=== PATIENT | female | born 1945 | race Caucasian/White ===

== ENCOUNTER 2023-03-11 16:26 | Inpatient (IN) | payer OTHER, SELFPAY ==
[2023-03-11] VITALS (28 sets, daily range): BP systolic 110–155; BP diastolic 42–98; PULSE 57–70; RESP 13–20; TEMP 36.6–36.8; O2SAT 88–100; BMI 52.2
--- NOTE | ~2023-03-11 | CT_ITS ---
EXAMINATION: CT brain wo con DATE: 03/11/2023 17:06 INDICATION: Episode of unresponsiveness TECHNIQUE: Computed tomography (CT) of the head was performed without intravenous contrast. Sagittal and coronal reconstructions were performed. The mA was adjusted according to patient size. Iterative reconstruction technique was employed. The dose-length product was 605.33 mGy-cm. COMPARISON: None FINDINGS: No acute intracranial hemorrhage, acute infarction or abnormal extra axial fluid collection. There is moderate scattered white matter hypoattenuation consistent with chronic small vessel ischemic diseas e. Symmetric prominence of the sulci consistent with mild to moderate age-appropriate diffuse cerebra l volume loss. Ventricles are normal and symmetric. No mass/mass effect. Intracranial calcified cereb ral atherosclerosis is noted. The orbits, paranasal sinuses and mastoid air cells are normal. IMPRESSION: 1. No acute intracranial process. 2. Age-related changes including mild to moderate diffuse volume loss and moderate scattered white ma tter hypoattenuation consistent with chronic small vessel ischemic disease. Reviewed, dictated and finalized at location A. IMPRESSION: 1. No acute intracranial process. 2. Age-related changes including mild to moderate diffuse volume loss and moder ate scattered white matter hypoattenuation consistent with chronic small vessel ischemic disease.
--- NOTE | ~2023-03-11 | XR_ITS ---
XR chest 1V DATE: 03/11/2023 17:08 INDICATION: Hypoxia TECHNIQUE: AP chest COMPARISON: None FINDINGS: Cardiomegaly. Is aortic calcification. There is mild pulmonary vascular congestion and redistribution. There is mild patchy infiltrate and/atelectasis in the left lower lobe and to a lesser extent right l [place] base. The left costophrenic angle is not sharp. Small left pleural effusion is not excluded. No pneumothora x. Diffuse osteopenia. Degenerative changes of the cervical, thoracic and lumbar spine. IMPRESSION: Cardiomegaly Aortic atherosclerosis Mild congestive change Patchy left lower lobe infiltrate or atelectasis, minimal infiltrate or atelectasis at right lung bas e Reviewed, dictated and finalized at location A. IMPRESSION: Cardiomegaly Aortic atherosclerosis Mild congestive change Patchy left lower lobe infiltrate or atelectasis, minimal infiltrate or atelect asis at right lung base
--- NOTE | 2023-03-11 16:34 | ECG_ITS ---
Measurements Intervals [place] Rate: 68 P: 53 GA: 175 QRS: 26 QRSD: 105 T: 5 QT: 415 QTc: 442 Interpretive Statements SINUS RHYTHM BORDERLINE ST-T WAVE ABNORMALITY- ANT/INF LEADS BORDERLINE ECG NO PREVIOUS ECG AVAILABLE FOR COMPARISON Electronically Signed On 03-11-2023 20:23:08 CDT by Clayton Madrid D.O.
--- NOTE | 2023-03-11 16:35 | ED.AMS ---
HPI - Altered Mental Status General Chief Complaint: Altered Mental Status Stated Complaint: unresponsive Time Seen by Provider: 03/11/23 16:34 History of Present Illness HPI narrative: patient is a 78-year-old female with history of diabetes, here with altered mental status. Per EMS patient was in a vehicle with her family and she went unresponsive. Patient now awake, alert, denying any complaints. She does not remember the event. She denies any chest pain, shortness of breath, lightheadedness. She does endorse some generalized weakness. Patient was hypoxic on EMS arrival and currently on 2L NC, she only uses oxygen at night when she sleeps however family notes she is supposed to be using it 10/01. Family states that she was doing well earlier today and then she was walking into a restaurant with her family and needed to stop and rest. She did eventually make it into the restaurant and eat. She continued to tell family that she did not feel well however she did not specify any specific complaints. They note that she then got into the vehicle and seemed to pass out leaning her head against the window and did not answer questions. They noted that she seemed to be breathing slowly and EMS was called. Related Data Home Medications Medication Instructions Recorded Confirmed atorvastatin 80 mg tablet 80 mg PO HS 03/11/23 03/11/23 diclofenac sodium 75 mg 75 mg PO BID 03/11/23 03/11/23 tablet,delayed release escitalopram oxalate 20 mg tablet 20 mg PO DAILY 03/11/23 03/11/23 folic acid 1 mg tablet 4 mg PO DAILY 03/11/23 03/11/23 gabapentin 300 mg capsule 300 mg PO BID 03/11/23 03/11/23 insulin human U-100 NPH-regulr 50 unit subcut BID 03/11/23 03/11/23 70-30 mix 100 unit/mL subcutaneous susp (Novolin 70/30 U-100 Insulin) lisinopril 2.5 mg tablet 2.5 mg PO DAILY 03/11/23 03/11/23 methotrexate sodium 2.5 mg tablet 15 mg PO WEEKLY 03/11/23 03/11/23 metoprolol tartrate 25 mg tablet 25 mg PO BID 03/11/23 03/11/23 nystatin 100,000 unit/gram topical 1 applic topical DAILY 03/11/23 03/11/23 powder pantoprazole 40 mg tablet,delayed 40 mg PO DAILY 03/11/23 03/11/23 release spironolactone 25 mg tablet 25 mg PO DAILY 03/11/23 03/11/23 Allergies Allergy/AdvReac Type Severity Reaction Status Date / Time Sulfa (Sulfonamide Allergy Unknown Verified 03/11/23 16:40 Antibiotics) Review of Systems Review of Systems: CONSTITUTIONAL: Denies fever, chills, or sweats. EYES: Denies visual changes, redness, or discharge. ENT: Denies rhinorrhea, congestion, sore throat, or otalgia. CARDIOVASCULAR: Denies chest pain, palpitations, or edema. RESPIRATORY: Shortness of breath, Denies cough GASTROINTESTINAL: Denies abdominal pain, nausea, vomiting GENITOURINARY: Denies dysuria or hematuria. SKIN: Rash underneath breasts MUSCULOSKELETAL: Denies back pain, joint pain, or myalgia. NEUROLOGIC: Denies headache, numbness, or weakness. Episode of unresponsiveness. PSYCHIATRIC: Denies anxiety or depression. [facility] Family History Family History (Updated 03/11/23 @ 21:38 by Shreya Waddell RN) Father Congestive heart failure Sibling Diabetes mellitus Social History Social History Smoking status: Never smoker Alcohol intake: never Substance use: never Lack of Transportation: No Lack of Food: Never True Current Housing: I Have Housing Concerned About Future Housing: No Difficulty Paying Gas/Electric Bills: No Difficulty Paying for Meds: No Currently Unemployed: No Education: High School Diploma/GED Difficulty w/ Childcare or Family Care: No Spiritual care concerns: No Exam Narrative: GENERAL: Well-appearing, well-nourished, and in no acute distress. HEAD: Normocephalic, atraumatic. EYES: PERRLA and EOMI. ENT: Nares clear. Mucous membranes moist. On 2L NC NECK: Supple. CHEST: Clear to auscultation. No respiratory distress. HEART: Regular rate and rhythm. Normal peripheral pulses. ABDOMEN:
[2023-03-11 16:47] LABS: Hematocrit 37.9 % (37.0-47.0); Hemoglobin 11.3 g/dL (12.0-15.0); Mean Corpuscular HGB Conc 29.8 g/dl (32-36); Mean Corpuscular Hemoglobin 25.5 pg (26-34); Mean Corpuscular Volume 85.4 fl (80-100); Mean Platelet Volume 9.4 fl (7.4-10.4); Platelet Count Result 296 k/mm3 (150-375); Red Blood Count 4.44 M/mm3 (4.2-5.4); Red Cell Distribution Width 17.2 % (11.5-14.5); White Blood Count 21.2 K/mm3 (4.5-10.0)
[2023-03-11 16:50] LABS: Glucose Point of Care 163 mg/dl (65-105)
[2023-03-11 17:06] LABS: Albumin Level 3.7 g/dL (3.5-5.1); Alkaline Phosphatase 110 U/L (38-126); Anion Gap 14 mmol/L (8-16); Aspartate Amino Transferase 72 U/L (14-36); Bilirubin,Total 0.8 mg/dL (0.2-1.3); Blood Urea Nitrogen 29 mg/dL (7-17); Calcium 8.6 mg/dL (8.4-10.2); Carbon Dioxide 17 mmol/L (22-30); Chloride 109 mmol/L (98-107); Estimated CRCL calculation 55 ml/min; Estimated Glomerular Filt Rate 54; Glucose 152 mg/dL (65-110); Potassium 5.1 mmol/L (3.4-5.0); Sodium 140 mmol/L (137-145)
[2023-03-11 17:08] LABS: Lactic Acid Reflex 5.6 mmol/L (0.7-2.0)
[2023-03-11 17:12] LABS: Troponin I < 0.012 ng/mL (0.000-0.034)
[2023-03-11 17:13] LABS: Eosinophils Absolute Manual 0.42 K/mm3 (0.02-0.5); Eosinophils Percent Manual 2 % (0-4); Lymphocytes Absolute Manual 4.66 K/mm3 (1.1-4.5); Monocytes Absolute Manual 0.63 K/mm3 (0.1-0.90); Monocytes Percent Manual 3 % (3-9); Neutrophils Percent Manual 73 % (46-73); Total Cells Counted 100
[2023-03-11 17:14] LABS: Platelet Estimate Adequate (Adequate); Schistocytes None Seen (NORMAL)
[2023-03-11 17:15] LABS: Anisocytosis 2+ (NORMAL); Hypochromasia 1+ (NORMAL)
[2023-03-11 17:22] LABS: Alanine Aminotransferase 48 U/L (6-35)
[2023-03-11 17:28] LABS: SARS-CoV-2 RNA PCR Negative (Negative)
[2023-03-11 17:35] LABS: INR 1.1; Partial Thromboplastin Time 22.3 SECONDS (22.3-36.8); Prothrombin Time 14.8 Seconds (11.1-14.7)
[2023-03-11] MEDS: LACTATED RINGERS 1,000 ML 999 ML IV CONT ×2 (17:45→20:36)
[2023-03-11] MEDS: CEFEPIME 2 GM/NS 50 ML 2 GM/50 ML BAG IVPB (17:58)
[2023-03-11 18:07] LABS: CRP 2.3 mg/dL (<1.0)
[2023-03-11] MEDS: VANCOMYCIN 1,250 MG/NS 250 ML 1,250 MG/250 ML BAG 166.67 MG IVPB ×2 (18:19→19:45)
[2023-03-11 18:57] LABS: Appearance Urine Cloudy (Clear); Bacteria Urine None Seen /hpf; Bilirubin Urine 1+ (Negative); Blood Urine Negative (Negative); Budding Yeast Urine Present /hpf; Color Urine Dark Yellow (Yellow); Glucose Urine UA Trace mg/dL (Negative); Hyaline Casts Urine Present /lpf; Ketones Urine Trace mg/dL (Negative); Leukocyte Esterase Ur 2+ LEU/UL (Negative); Need Manual Microscopic Reviewed; Nitrate Urine Negative (Negative); Non Pathogenic Casts >20; Protein Urine 3+ mg/dL (Negative); Specific Grav Ur 1.024 (1.001-1.035); Squamous Epithelial Cell Urine Few /hpf (Few); WBC Urine 51-100 /hpf; Waxy Casts Urine Present /lpf; White Blood Cell Casts Urine Present /lpf
[2023-03-11 18:58] LABS: Add Urine Microscopic? YES
[2023-03-11 19:51] LABS: Reflex Lactic Acid Yes or No Add Lactic
[2023-03-11 21:00] LABS: Lactic Acid 1.1 mmol/L (0.7-2.0)
[2023-03-11 21:10] LABS: Troponin I 0.028 ng/mL (0.000-0.034)
--- NOTE | 2023-03-11 21:20 | ADMGEN ---
This patient, Jaida Hadley, was admitted to 2 Medical Room 254-01. Patient/family oriented to hospital policies and general routines including ID bracelet, bed and alarms, visiting hours, pain management, procedures, bathroom and other care routines, personal items, smoking policy, room service/diet, and visiting hours. Information on how to activate the Rapid Response Team has been discussed. Patient/Family are encouraged to report perceived risks to care and to ask questions if they do not understand what they are told or what they should do.
[2023-03-11] MEDS: TOLNAFTATE 1% POWDER 45 GM BTL 1 APPLIC TOPICAL (22:16)
--- NOTE | 2023-03-11 23:26 | PM.IMHP ---
H&P: HPI History of Present Illness Date/Time: 03/11/23 23:26 Chief Complaint: Patient brought to the ER for evaluation by EMS after she passed out after dinner today Narrative: She is a very pleasant 78 years old morbidly obese female who lives with her family at home. According to her , she is feeling weak and tired and sleeping most of the day since yesterday. They went for dinner and on the way home, she passed out at the passenger seat. Family got concerned, called EMS and brought the patient to ER for evaluation. Workup was done which showed raging UTI with sepsis. Patient was given aggressive IV hydration and IV antibiotics. Upon my evaluation in the ER, she is getting back to her normal self and answered my questions appropriately. She is being admitted to the medical floor for IV antibiotics and medical management. Review of Systems Review of Systems: she denies any chest pain, palpitations, fever rigor chills, nausea vomiting or abdominal pain All systems reviewed & are unremarkable except as noted in HPI and below PMFSH Past Medical History Medical History (Updated 03/12/23 @ 01:45 by Donny Hitchcock MD) Morbid obesity due to excess calories Family History Family History Father Congestive heart failure Sibling Diabetes mellitus Social History Social History Smoking status: Never smoker Alcohol intake: never Substance use: never Lack of Transportation: No Lack of Food: Never True Current Housing: I Have Housing Concerned About Future Housing: No Difficulty Paying Gas/Electric Bills: No Difficulty Paying for Meds: No Currently Unemployed: No Education: High School Diploma/GED Difficulty w/ Childcare or Family Care: No Spiritual care concerns: No Meds Home Medications and Allergies Home Medications Medication Instructions Recorded Confirmed Type atorvastatin 80 mg tablet 80 mg PO HS 03/11/23 03/11/23 History diclofenac sodium 75 mg 75 mg PO BID 03/11/23 03/11/23 History tablet,delayed release escitalopram oxalate 20 mg tablet 20 mg PO DAILY 03/11/23 03/11/23 History folic acid 1 mg tablet 4 mg PO DAILY 03/11/23 03/11/23 History gabapentin 300 mg capsule 300 mg PO BID 03/11/23 03/11/23 History insulin human U-100 NPH-regulr 50 unit subcut BID 03/11/23 03/11/23 History 70-30 mix 100 unit/mL subcutaneous susp (Novolin 70/30 U-100 Insulin) lisinopril 2.5 mg tablet 2.5 mg PO DAILY 03/11/23 03/11/23 History methotrexate sodium 2.5 mg tablet 15 mg PO WEEKLY 03/11/23 03/11/23 History metoprolol tartrate 25 mg tablet 25 mg PO BID 03/11/23 03/11/23 History nystatin 100,000 unit/gram topical 1 applic topical DAILY 03/11/23 03/11/23 History powder pantoprazole 40 mg tablet,delayed 40 mg PO DAILY 03/11/23 03/11/23 History release spironolactone 25 mg tablet 25 mg PO DAILY 03/11/23 03/11/23 History Allergies Allergy/AdvReac Type Severity Reaction Status Date / Time Sulfa (Sulfonamide Allergy Unknown Verified 03/11/23 16:40 Antibiotics) Vital Signs Vital Signs - 24 hr 03/11/23 16:31 03/11/23 16:35 03/11/23 18:50 Temperature 36.8 C Pulse Rate 70 Respiratory Rate 20 Blood Pressure 155/58 H Pulse Oximetry 94 88 L 95 Oxygen Delivery Nasal Cannula Room Air Nasal Cannula Oxygen Flow Rate 2 2 03/11/23 17:11 03/11/23 17:15 03/11/23 17:19 Temperature Pulse Rate 65 65 65 Respiratory Rate 19 17 18 Blood Pressure 122/50 L Pulse Oximetry 94 97 97 Oxygen Delivery Oxygen Flow Rate 03/11/23 17:31 03/11/23 17:53 03/11/23 18:00 Temperature Pulse Rate 62 61 62 Respiratory Rate 18 15 19 Blood Pressure 110/42 L Pulse Oximetry 95 95 97 Oxygen Delivery Oxygen Flow Rate 03/11/23 18:01 03/11/23 18:15 03/11/23 18:16 Temperature Pulse Rate 59 L 61 60 Respiratory Rate 19 18 16 Blood Pressure 110/50 L
[2023-03-12] VITALS (12 sets, daily range): BP systolic 120–138; BP diastolic 42–66; PULSE 60–68; RESP 14–20; TEMP 36.6–36.9; O2SAT 96–100
[2023-03-12] MEDS: SODIUM CHLORIDE 0.45% 1,000 ML 100 ML IV CONT (02:37)
[2023-03-12 04:45] LABS: Basophils Absolute Auto 0.1 K/mm3 (0.0-0.1); Basophils Percent Auto 0.4 % (0.2-1.2); Eosinophils Absolute Auto 0.2 K/mm3 (0-0.3); Eosinophils Percent Auto 1.2 % (0-4.4); Hematocrit 35.9 % (37.0-47.0); Hemoglobin 10.6 g/dL (12.0-15.0); Immature Granulocyte Absolute 0.11 K/mm3 (0.00-0.031); Immature Granulocyte Percent A 0.8 % (0-0.5); Lymphocytes Absolute Auto 2.19 K/mm3 (0.9-3.2); Lymphocytes Percent Auto 15.1 % (18.3-44.2); Mean Corpuscular HGB Conc 29.5 g/dl (32-36); Mean Corpuscular Hemoglobin 25.4 pg (26-34); Mean Corpuscular Volume 85.9 fl (80-100); Mean Platelet Volume 9.4 fl (7.4-10.4); Monocytes Absolute Auto 0.9 K/mm3 (0.1-0.6); Monocytes Percent Auto 6.2 % (2.6-8.5); Neutrophils Absolute Auto 11.1 K/mm3 (1.3-6.7); Neutrophils Percent Auto 76.3 % (45.5-73.1); Platelet Count Result 262 k/mm3 (150-375); Red Blood Count 4.18 M/mm3 (4.2-5.4); Red Cell Distribution Width 17.2 % (11.5-14.5); White Blood Count 14.5 K/mm3 (4.5-10.0)
[2023-03-12 05:01] LABS: Anion Gap 5 mmol/L (8-16); Blood Urea Nitrogen 28 mg/dL (7-17); Calcium 8.4 mg/dL (8.4-10.2); Carbon Dioxide 26 mmol/L (22-30); Chloride 108 mmol/L (98-107); Estimated CRCL calculation 72 ml/min; Estimated Glomerular Filt Rate > 60; Glucose 130 mg/dL (65-110); Magnesium 1.8 mg/dL (1.6-2.3); Phosphorus 3.4 mg/dL (2.5-4.5); Potassium 4.6 mmol/L (3.4-5.0); Sodium 139 mmol/L (137-145)
[2023-03-12 08:37] LABS: Glucose Point of Care 124 mg/dl (65-105)
[2023-03-12] MEDS: ENOXAPARIN 30 MG/0.3 ML SYRINGE SUB-Q ×2 (09:22→21:46)
[2023-03-12] MEDS: DICLOFENAC SOD 75 MG TABLET.EC PO ×2 (09:22→18:13)
[2023-03-12] MEDS: FOLIC ACID 1 MG TABLET 4 MG PO (09:23)
[2023-03-12] MEDS: ESCITALOPRAM OXALATE 10 MG TABLET 20 MG PO (09:23)
[2023-03-12] MEDS: PANTOPRAZOLE 40 MG TABLET PO (09:24)
[2023-03-12] MEDS: GABAPENTIN 300 MG CAPSULE PO ×2 (09:24→18:14)
[2023-03-12] MEDS: TOLNAFTATE 1% POWDER 45 GM BTL 1 APPLIC TOPICAL ×2 (09:25→21:46)
[2023-03-12] MEDS: INSULIN HUMAN ISOPHAN/REGULAR 70/30 (*BKC) 100 UNITS/ML 50 UNITS SUB-Q ×2 (09:25→18:14)
[2023-03-12] MEDS: lisinopriL 2.5 MG TABLET PO (11:00)
[2023-03-12] MEDS: METOPROLOL TARTRATE 25 MG TABLET PO ×2 (11:00→21:45)
[2023-03-12 12:24] LABS: Glucose Point of Care 151 mg/dl (65-105)
--- NOTE | 2023-03-12 12:54 | PM.IMPN ---
Progress Note: A&P Assessment and Plan (1) Acute UTI: Code(s): N39.0 - Urinary tract infection, site not specified Status: Acute (2) Altered mental status: Qualifiers: Altered mental status type: delirium Qualified Code(s): R41.0 - Disorientation, unspecified Code(s): R41.82 - Altered mental status, unspecified Status: Acute (3) Candidal skin infection: Code(s): B37.2 - Candidiasis of skin and nail Status: Acute (4) Candidal intertrigo: Code(s): B37.2 - Candidiasis of skin and nail Status: Acute (5) Morbid obesity due to excess calories: Code(s): E66.01 - Morbid (severe) obesity due to excess calories Status: Acute (6) Sepsis secondary to UTI: Code(s): A41.9 - Sepsis, unspecified organism; N39.0 - Urinary tract infection, site not specified Status: Acute Plan 78-year-old female presented with altered mental status. Patient was in of the cul with her family and went unresponsive. EMS was called. Was noted to be hypoxic on EMS arrival and was placed on oxygen nasal cannula 2 L. she normally uses oxygen only at night. The oz she is supposed to be using it 247. She was otherwise doing well earlier today until this happened. Upon arrival to the ER she is alert and oriented and more awake. Initial ED evaluation showed WBC count of 21,000 lactic acid of 5.6 troponin was normal COVID negative CT head was negative. Chest x-ray showed left lower lobe infiltrate versus atelectasis. UA consistent with UTI. Diagnosis sepsis received IV fluid resuscitation likely source UTI started on vancomycin and cefepime. Was admitted for further evaluation. Seen doses mild cough which is chronic. Her lactic acid is resolved since then. She has underlying history of morbid obesity/diabetes mellitus on insulin peripheral neuropathy/anxiety depression/hypertension/hyperlipidemia/psoriasis also on methotrexate. Will also check ABG. Will stop IV fluids. Continue oxygen supplementation as ordered Subjective Date/time seen: 03/12/23 12:54 Interval history: 78-year-old female presented with altered mental status. Patient was in of the cul with her family and went unresponsive. EMS was called. Was noted to be hypoxic on EMS arrival and was placed on oxygen nasal cannula 2 L. she normally uses oxygen only at night. The oz she is supposed to be using it 247. She was otherwise doing well earlier today until this happened. Upon arrival to the ER she is alert and oriented and more awake. Initial ED evaluation showed WBC count of 21,000 lactic acid of 5.6 troponin was normal COVID negative CT head was negative. Chest x-ray showed left lower lobe infiltrate versus atelectasis. UA consistent with UTI. Diagnosis sepsis received IV fluid resuscitation likely source UTI started on vancomycin and cefepime. Was admitted for further evaluation. Seen doses mild cough which is chronic. Her lactic acid is resolved since then. She has underlying history of morbid obesity/diabetes mellitus on insulin peripheral neuropathy/anxiety depression/hypertension/hyperlipidemia also on methotrexate. Will also check ABG Review of Systems Review of Systems: All systems reviewed & are unremarkable except as noted in HPI and below Exam Narrative: General physical exam: morbidly obese female lying in bed during my ER exam, feels tired and fatigued, family at bedside Head/eyes: Atraumatic, EOMI, PERRLA ENT: +dry mucous membranes, nasal passages clear Neck: Supple, full range of motion, trachea midline CVS: S1 + S2, regular rate and rhythm, no murmurs Respiratory: Bilaterally fair air entry in both lung allen, mild B/L crackles, symmetric chest expansion, no distress Abdomen: Soft, non-tender, bowel sounds +ve, no organomegaly Extremities: No clubbing, no cyanosis, no edema, no calf tenderness Musculoskeletal: Moves all, decreased range of motion, no muscle spasms Skin: Warm, dry, no jaund
[2023-03-12] MEDS: CEFEPIME 2 GM/NS 50 ML 2 GM/50 ML BAG IVPB ×2 (14:24→23:00)
[2023-03-12 17:06] LABS: Glucose Point of Care 128 mg/dl (65-105)
[2023-03-12 17:22] LABS: Glucose Point of Care 149 mg/dl (65-105)
[2023-03-12] MEDS: ATORVASTATIN 40 MG TABLET 80 MG PO (21:45)
[2023-03-12 21:47] LABS: Glucose Point of Care 179 mg/dl (65-105)
[2023-03-12] MEDS: ACETAMINOPHEN 325 MG TABLET 650 MG PO (21:59)
[2023-03-13] VITALS (15 sets, daily range): BP systolic 96–124; BP diastolic 50–79; PULSE 51–94; RESP 16–20; TEMP 36.2–36.6; O2SAT 93–100
[2023-03-13 05:55] LABS: Basophils Absolute Auto 0.1 K/mm3 (0.0-0.1); Basophils Percent Auto 0.5 % (0.2-1.2); Eosinophils Absolute Auto 0.4 K/mm3 (0-0.3); Hematocrit 35.1 % (37.0-47.0); Hemoglobin 10.2 g/dL (12.0-15.0); Immature Granulocyte Percent A 0.7 % (0-0.5); Lymphocytes Absolute Auto 2.61 K/mm3 (0.9-3.2); Lymphocytes Percent Auto 19.3 % (18.3-44.2); Mean Corpuscular HGB Conc 29.1 g/dl (32-36); Mean Corpuscular Hemoglobin 25.4 pg (26-34); Mean Corpuscular Volume 87.3 fl (80-100); Mean Platelet Volume 9.8 fl (7.4-10.4); Monocytes Absolute Auto 0.9 K/mm3 (0.1-0.6); Monocytes Percent Auto 6.9 % (2.6-8.5); Neutrophils Absolute Auto 9.4 K/mm3 (1.3-6.7); Neutrophils Percent Auto 69.6 % (45.5-73.1); Platelet Count Result 257 k/mm3 (150-375); Red Blood Count 4.02 M/mm3 (4.2-5.4); Red Cell Distribution Width 17.1 % (11.5-14.5); White Blood Count 13.5 K/mm3 (4.5-10.0)
[2023-03-13] MEDS: CEFEPIME 2 GM/NS 50 ML 2 GM/50 ML BAG IVPB ×3 (06:00→22:02)
[2023-03-13 06:05] LABS: Anion Gap 8 mmol/L (8-16); Blood Urea Nitrogen 33 mg/dL (7-17); Calcium 8.2 mg/dL (8.4-10.2); Carbon Dioxide 22 mmol/L (22-30); Chloride 108 mmol/L (98-107); Estimated CRCL calculation 54 ml/min; Estimated Glomerular Filt Rate 48; Glucose 87 mg/dL (65-110); Magnesium 1.9 mg/dL (1.6-2.3); Potassium 4.4 mmol/L (3.4-5.0); Sodium 138 mmol/L (137-145)
[2023-03-13 06:27] LABS: Anisocytosis 1+ (NORMAL); Hypochromasia 1+ (NORMAL); Platelet Estimate Adequate (Adequate); Schistocytes None Seen (NORMAL)
[2023-03-13 07:59] LABS: Glucose Point of Care 65 mg/dl (65-105)
[2023-03-13] MEDS: lisinopriL 2.5 MG TABLET PO (08:43)
[2023-03-13] MEDS: GABAPENTIN 300 MG CAPSULE PO ×2 (08:43→17:20)
[2023-03-13 08:44] LABS: Glucose Point of Care 104 mg/dl (65-105)
[2023-03-13] MEDS: TOLNAFTATE 1% POWDER 45 GM BTL 1 APPLIC TOPICAL ×2 (08:44→20:33)
[2023-03-13] MEDS: PANTOPRAZOLE 40 MG TABLET PO (08:44)
[2023-03-13] MEDS: ESCITALOPRAM OXALATE 10 MG TABLET 20 MG PO (08:44)
[2023-03-13] MEDS: DICLOFENAC SOD 75 MG TABLET.EC PO ×2 (08:44→17:20)
[2023-03-13] MEDS: METOPROLOL TARTRATE 25 MG TABLET PO ×2 (08:44→20:34)
[2023-03-13] MEDS: ENOXAPARIN 30 MG/0.3 ML SYRINGE SUB-Q ×2 (08:45→20:37)
[2023-03-13 11:43] LABS: Glucose Point of Care 91 mg/dl (65-105)
--- NOTE | 2023-03-13 11:51 | PM.IMPN ---
Progress Note: A&P Assessment and Plan (1) Acute UTI: Code(s): N39.0 - Urinary tract infection, site not specified Status: Acute (2) Altered mental status: Qualifiers: Altered mental status type: delirium Qualified Code(s): R41.0 - Disorientation, unspecified Code(s): R41.82 - Altered mental status, unspecified Status: Acute (3) Candidal skin infection: Code(s): B37.2 - Candidiasis of skin and nail Status: Acute (4) Candidal intertrigo: Code(s): B37.2 - Candidiasis of skin and nail Status: Acute (5) Morbid obesity due to excess calories: Code(s): E66.01 - Morbid (severe) obesity due to excess calories Status: Acute (6) Sepsis secondary to UTI: Code(s): A41.9 - Sepsis, unspecified organism; N39.0 - Urinary tract infection, site not specified Status: Acute Plan 78-year-old female presented with altered mental status. Patient was in of the cul with her family and went unresponsive. EMS was called. Was noted to be hypoxic on EMS arrival and was placed on oxygen nasal cannula 2 L. she normally uses oxygen only at night. The oz she is supposed to be using it 10/01. She was otherwise doing well earlier today until this happened. Upon arrival to the ER she is alert and oriented and more awake. Initial ED evaluation showed WBC count of 21,000 lactic acid of 5.6 troponin was normal COVID negative CT head was negative. Chest x-ray showed left lower lobe infiltrate versus atelectasis. UA consistent with UTI. Diagnosis sepsis received IV fluid resuscitation likely source UTI started on vancomycin and cefepime. Was admitted for further evaluation. She has mild cough which is chronic. Her lactic acid is resolved since then. She has underlying history of morbid obesity/diabetes mellitus on insulin peripheral neuropathy/anxiety depression/hypertension/hyperlipidemia/psoriasis also on methotrexate. ABG ordered but could not be obtained. Stopped IV fluid 03/12. Leukocytosis continues to improve. MRSA is negative on nares. Will stop vancomycin IV. Blood culture x2 is negative to date. Urine culture is no growth to date. Continue cefepime as ordered. Continue oxygen supplementation as ordered Subjective Date/time seen: 03/13/23 11:51 Interval history: 78-year-old female presented with altered mental status. Patient was in of the cul with her family and went unresponsive. EMS was called. Was noted to be hypoxic on EMS arrival and was placed on oxygen nasal cannula 2 L. she normally uses oxygen only at night. The oz she is supposed to be using it 247. She was otherwise doing well earlier today until this happened. Upon arrival to the ER she is alert and oriented and more awake. Initial ED evaluation showed WBC count of 21,000 lactic acid of 5.6 troponin was normal COVID negative CT head was negative. Chest x-ray showed left lower lobe infiltrate versus atelectasis. UA consistent with UTI. Diagnosis sepsis received IV fluid resuscitation likely source UTI started on vancomycin and cefepime. Was admitted for further evaluation. Seen doses mild cough which is chronic. Her lactic acid is resolved since then. She has underlying history of morbid obesity/diabetes mellitus on insulin peripheral neuropathy/anxiety depression/hypertension/hyperlipidemia also on methotrexate. Will also check ABG 03/13/2023: No overnight events. ABG could not be performed. Labs were reviewed. Denies any new complaints. Review of Systems Review of Systems: All systems reviewed & are unremarkable except as noted in HPI and below Exam Narrative: General physical exam: morbidly obese female, feels tired and fatigued Head/eyes: Atraumatic, EOMI, PERRLA ENT: +dry mucous membranes, nasal passages clear Neck: Supple, full range of motion, trachea midline CVS: S1 + S2, regular rate and rhythm, no murmurs Respiratory: Bilaterally fair air entry in both lung allen, mild B/
[2023-03-13 16:48] LABS: Glucose Point of Care 124 mg/dl (65-105)
[2023-03-13] MEDS: INSULIN HUMAN ISOPHAN/REGULAR 70/30 (*BKC) 100 UNITS/ML 35 UNITS SUB-Q (17:20)
[2023-03-13] MEDS: ATORVASTATIN 40 MG TABLET 80 MG PO (20:34)
[2023-03-13 21:39] LABS: Glucose Point of Care 150 mg/dl (65-105)
[2023-03-14] VITALS (13 sets, daily range): BP systolic 106–125; BP diastolic 43–53; PULSE 51–110; RESP 16–20; TEMP 36.3–36.6; O2SAT 96–99
[2023-03-14] MEDS: ACETAMINOPHEN 325 MG TABLET 650 MG PO ×2 (00:52→08:38)
[2023-03-14] MEDS: CEFEPIME 2 GM/NS 50 ML 2 GM/50 ML BAG IVPB ×3 (05:12→21:09)
[2023-03-14 05:46] LABS: Basophils Absolute Auto 0.1 K/mm3 (0.0-0.1); Basophils Percent Auto 0.7 % (0.2-1.2); Eosinophils Absolute Auto 0.5 K/mm3 (0-0.3); Eosinophils Percent Auto 3.6 % (0-4.4); Hematocrit 34.1 % (37.0-47.0); Hemoglobin 9.8 g/dL (12.0-15.0); Immature Granulocyte Absolute 0.09 K/mm3 (0.00-0.031); Immature Granulocyte Percent A 0.7 % (0-0.5); Lymphocytes Absolute Auto 2.51 K/mm3 (0.9-3.2); Lymphocytes Percent Auto 19.1 % (18.3-44.2); Mean Corpuscular HGB Conc 28.7 g/dl (32-36); Mean Corpuscular Hemoglobin 25.1 pg (26-34); Mean Corpuscular Volume 87.4 fl (80-100); Mean Platelet Volume 9.6 fl (7.4-10.4); Monocytes Percent Auto 7.4 % (2.6-8.5); Neutrophils Percent Auto 68.5 % (45.5-73.1); Platelet Count Result 250 k/mm3 (150-375); Red Cell Distribution Width 16.9 % (11.5-14.5); White Blood Count 13.1 K/mm3 (4.5-10.0)
[2023-03-14 05:56] LABS: Anion Gap 7 mmol/L (8-16); Blood Urea Nitrogen 40 mg/dL (7-17); Calcium 8.2 mg/dL (8.4-10.2); Carbon Dioxide 22 mmol/L (22-30); Chloride 107 mmol/L (98-107); Estimated CRCL calculation 49 ml/min; Estimated Glomerular Filt Rate 44; Glucose 86 mg/dL (65-110); Magnesium 2.3 mg/dL (1.6-2.3); Potassium 4.4 mmol/L (3.4-5.0); Sodium 136 mmol/L (137-145)
[2023-03-14 08:20] LABS: Glucose Point of Care 80 mg/dl (65-105)
[2023-03-14] MEDS: ESCITALOPRAM OXALATE 10 MG TABLET 20 MG PO (08:38)
[2023-03-14] MEDS: GABAPENTIN 300 MG CAPSULE PO ×2 (08:40→17:35)
[2023-03-14] MEDS: lisinopriL 2.5 MG TABLET PO (08:40)
[2023-03-14] MEDS: PANTOPRAZOLE 40 MG TABLET PO (08:40)
[2023-03-14] MEDS: ENOXAPARIN 30 MG/0.3 ML SYRINGE SUB-Q ×2 (08:40→20:07)
[2023-03-14] MEDS: DICLOFENAC SOD 75 MG TABLET.EC PO ×2 (08:40→17:35)
[2023-03-14] MEDS: FOLIC ACID 1 MG TABLET 4 MG PO (08:43)
[2023-03-14] MEDS: TOLNAFTATE 1% POWDER 45 GM BTL 1 APPLIC TOPICAL ×2 (08:43→20:08)
[2023-03-14] MEDS: METOPROLOL TARTRATE 25 MG TABLET PO ×2 (08:44→20:08)
[2023-03-14 11:57] LABS: Glucose Point of Care 156 mg/dl (65-105)
--- NOTE | 2023-03-14 15:41 | PM.IMPN ---
Progress Note: A&P Assessment and Plan (1) Acute UTI: Code(s): N39.0 - Urinary tract infection, site not specified Status: Acute (2) Altered mental status: Qualifiers: Altered mental status type: delirium Qualified Code(s): R41.0 - Disorientation, unspecified Code(s): R41.82 - Altered mental status, unspecified Status: Acute (3) Candidal skin infection: Code(s): B37.2 - Candidiasis of skin and nail Status: Acute (4) Candidal intertrigo: Code(s): B37.2 - Candidiasis of skin and nail Status: Acute (5) Morbid obesity due to excess calories: Code(s): E66.01 - Morbid (severe) obesity due to excess calories Status: Acute (6) Sepsis secondary to UTI: Code(s): A41.9 - Sepsis, unspecified organism; N39.0 - Urinary tract infection, site not specified Status: Acute Plan 78-year-old female presented with altered mental status. Patient was in of the cul with her family and went unresponsive. EMS was called. Was noted to be hypoxic on EMS arrival and was placed on oxygen nasal cannula 2 L. she normally uses oxygen only at night. The oz she is supposed to be using it 10/01. She was otherwise doing well earlier today until this happened. Upon arrival to the ER she is alert and oriented and more awake. Initial ED evaluation showed WBC count of 21,000 lactic acid of 5.6 troponin was normal COVID negative CT head was negative. Chest x-ray showed left lower lobe infiltrate versus atelectasis. UA consistent with UTI. Diagnosis sepsis received IV fluid resuscitation likely source UTI started on vancomycin and cefepime. Was admitted for further evaluation. She has mild cough which is chronic. Her lactic acid is resolved since then. She has underlying history of morbid obesity/diabetes mellitus on insulin peripheral neuropathy/anxiety depression/hypertension/hyperlipidemia/psoriasis also on methotrexate. ABG ordered but could not be obtained. Stopped IV fluid 03/12. Leukocytosis continues to improve. MRSA is negative on nares. Will stop vancomycin IV. Blood culture x2 is negative to date. Urine culture is no growth to date. Continue cefepime as ordered. WBC count continues to improve slowly. Continue oxygen supplementation as ordered. Recheck labs in a.m.. [facility] at discharge Subjective Date/time seen: 03/14/23 15:41 Interval history: 78-year-old female presented with altered mental status. Patient was in of the cul with her family and went unresponsive. EMS was called. Was noted to be hypoxic on EMS arrival and was placed on oxygen nasal cannula 2 L. she normally uses oxygen only at night. The oz she is supposed to be using it 247. She was otherwise doing well earlier today until this happened. Upon arrival to the ER she is alert and oriented and more awake. Initial ED evaluation showed WBC count of 21,000 lactic acid of 5.6 troponin was normal COVID negative CT head was negative. Chest x-ray showed left lower lobe infiltrate versus atelectasis. UA consistent with UTI. Diagnosis sepsis received IV fluid resuscitation likely source UTI started on vancomycin and cefepime. Was admitted for further evaluation. Seen doses mild cough which is chronic. Her lactic acid is resolved since then. She has underlying history of morbid obesity/diabetes mellitus on insulin peripheral neuropathy/anxiety depression/hypertension/hyperlipidemia also on methotrexate. Will also check ABG 03/13/2023: No overnight events. ABG could not be performed. Labs were reviewed. Denies any new complaints. 03/14/2023: No overnight events. Feels less sleepy. No other events. Discussed with the family. Labs reviewed. Review of Systems Review of Systems: All systems reviewed & are unremarkable except as noted in HPI and below Exam Narrative: General physical exam: morbidly obese female, feels tired and fatigued Head/eyes: Atraumatic, EOMI, PERRLA ENT: +dry muco
[2023-03-14 16:36] LABS: Glucose Point of Care 174 mg/dl (65-105)
[2023-03-14] MEDS: INSULIN HUMAN ISOPHAN/REGULAR 70/30 (*BKC) 100 UNITS/ML 25 UNITS SUB-Q (17:35)
[2023-03-14] MEDS: ATORVASTATIN 40 MG TABLET 80 MG PO (20:06)
[2023-03-15] VITALS (15 sets, daily range): BP systolic 100–144; BP diastolic 47–61; PULSE 50–61; RESP 16–20; TEMP 36.2–36.6; O2SAT 93–100
[2023-03-15 00:13] LABS: Glucose Point of Care 161 mg/dl (65-105)
[2023-03-15] MEDS: CEFEPIME 2 GM/NS 50 ML 2 GM/50 ML BAG IVPB ×2 (05:04→13:49)
[2023-03-15 06:16] LABS: Basophils Absolute Auto 0.1 K/mm3 (0.0-0.1); Basophils Percent Auto 0.6 % (0.2-1.2); Eosinophils Absolute Auto 0.4 K/mm3 (0-0.3); Hematocrit 34.1 % (37.0-47.0); Immature Granulocyte Absolute 0.11 K/mm3 (0.00-0.031); Immature Granulocyte Percent A 0.8 % (0-0.5); Lymphocytes Absolute Auto 2.17 K/mm3 (0.9-3.2); Lymphocytes Percent Auto 16.5 % (18.3-44.2); Mean Corpuscular HGB Conc 29.3 g/dl (32-36); Mean Corpuscular Hemoglobin 25.2 pg (26-34); Mean Corpuscular Volume 85.9 fl (80-100); Mean Platelet Volume 9.8 fl (7.4-10.4); Monocytes Percent Auto 7.5 % (2.6-8.5); Neutrophils Absolute Auto 9.4 K/mm3 (1.3-6.7); Neutrophils Percent Auto 71.6 % (45.5-73.1); Nucleated Red Blood Cells Perc 0.2 % (0.0-0.2); Platelet Count Result 276 k/mm3 (150-375); Red Blood Count 3.97 M/mm3 (4.2-5.4); Red Cell Distribution Width 16.9 % (11.5-14.5); White Blood Count 13.2 K/mm3 (4.5-10.0)
[2023-03-15 06:33] LABS: Anion Gap 8 mmol/L (8-16); Blood Urea Nitrogen 44 mg/dL (7-17); Calcium 8.4 mg/dL (8.4-10.2); Carbon Dioxide 23 mmol/L (22-30); Chloride 106 mmol/L (98-107); Estimated CRCL calculation 43 ml/min; Estimated Glomerular Filt Rate 37; Glucose 121 mg/dL (65-110); Magnesium 2.2 mg/dL (1.6-2.3); Potassium 4.8 mmol/L (3.4-5.0); Sodium 137 mmol/L (137-145)
[2023-03-15 06:43] LABS: Anisocytosis 1+ (NORMAL); Hypochromasia 1+ (NORMAL); Platelet Estimate Adequate (Adequate)
[2023-03-15 06:44] LABS: Burr Cells 1+ (NORMAL); Schistocytes None Seen (NORMAL)
[2023-03-15] MEDS: ACETAMINOPHEN 325 MG TABLET 650 MG PO (07:29)
[2023-03-15 08:17] LABS: Glucose Point of Care 96 mg/dl (65-105)
[2023-03-15] MEDS: PANTOPRAZOLE 40 MG TABLET PO (08:50)
[2023-03-15] MEDS: GABAPENTIN 300 MG CAPSULE PO ×2 (08:50→17:06)
[2023-03-15] MEDS: lisinopriL 2.5 MG TABLET PO (08:51)
[2023-03-15] MEDS: DICLOFENAC SOD 75 MG TABLET.EC PO ×2 (08:51→17:07)
[2023-03-15] MEDS: ESCITALOPRAM OXALATE 10 MG TABLET 20 MG PO (08:51)
[2023-03-15] MEDS: ENOXAPARIN 30 MG/0.3 ML SYRINGE SUB-Q ×2 (08:51→20:20)
[2023-03-15] MEDS: TOLNAFTATE 1% POWDER 45 GM BTL 1 APPLIC TOPICAL ×2 (08:52→20:20)
[2023-03-15] MEDS: METOPROLOL TARTRATE 25 MG TABLET PO ×2 (08:53→20:19)
[2023-03-15] MEDS: INSULIN HUMAN ISOPHAN/REGULAR 70/30 (*BKC) 100 UNITS/ML 25 UNITS SUB-Q ×2 (08:57→17:52)
[2023-03-15] MEDS: FOLIC ACID 1 MG TABLET 4 MG PO (08:57)
[2023-03-15 12:08] LABS: Glucose Point of Care 163 mg/dl (65-105)
[2023-03-15 13:08] LABS: Glucose Point of Care 180 mg/dl (65-105)
--- NOTE | 2023-03-15 15:25 | PM.IMPN ---
Progress Note: A&P Assessment and Plan (1) Acute UTI: Code(s): N39.0 - Urinary tract infection, site not specified Status: Acute (2) Altered mental status: Qualifiers: Altered mental status type: delirium Qualified Code(s): R41.0 - Disorientation, unspecified Code(s): R41.82 - Altered mental status, unspecified Status: Acute (3) Candidal skin infection: Code(s): B37.2 - Candidiasis of skin and nail Status: Acute (4) Candidal intertrigo: Code(s): B37.2 - Candidiasis of skin and nail Status: Acute (5) Morbid obesity due to excess calories: Code(s): E66.01 - Morbid (severe) obesity due to excess calories Status: Acute (6) Sepsis secondary to UTI: Code(s): A41.9 - Sepsis, unspecified organism; N39.0 - Urinary tract infection, site not specified Status: Acute Plan 78-year-old female presented with altered mental status.? Patient was in the car with her family and went unresponsive.? EMS was called.? Was noted to be hypoxic on EMS arrival and was placed on oxygen nasal cannula 2 L. she normally uses oxygen only at night.? She is supposed to be using it 10/01.? She was otherwise doing well earlier today until this happened.? Upon arrival to the ER she is alert and oriented and more awake.? Initial ED evaluation showed WBC count of 21,000 lactic acid of 5.6 troponin was normal COVID negative CT head was negative.? Chest x-ray showed left lower lobe infiltrate versus atelectasis.? UA consistent with UTI.? Diagnosis sepsis received IV fluid resuscitation likely source UTI started on vancomycin and cefepime.? Was admitted for further evaluation.? She has mild cough which is chronic.? Her lactic acid is resolved since then.? She has underlying history of morbid obesity/diabetes mellitus on insulin peripheral neuropathy/anxiety depression/hypertension/hyperlipidemia/psoriasis also on methotrexate.? ABG ordered but could not be obtained.? Stopped IV fluid 03/12.? Leukocytosis continues to improve but remained persistent.? MRSA is negative on nares.? Stopped IV vancomycin.? Blood culture x2 is negative to date.? Urine culture is no growth to date.?Continue cefepime as ordered.? Plan to switch to Levaquin oral tab also have Pseudomonas coverage. WBC count continues to improve slowly however remains persistent.? Continue oxygen supplementation as ordered.? Apnea link with desaturation noted. Recheck again in 3 L oxygen tonight. Home health at discharge Subjective Date/time seen: 03/15/23 15:25 Interval history: 78-year-old female presented with altered mental status. Patient was in of the cul with her family and went unresponsive. EMS was called. Was noted to be hypoxic on EMS arrival and was placed on oxygen nasal cannula 2 L. she normally uses oxygen only at night. The oz she is supposed to be using it 247. She was otherwise doing well earlier today until this happened. Upon arrival to the ER she is alert and oriented and more awake. Initial ED evaluation showed WBC count of 21,000 lactic acid of 5.6 troponin was normal COVID negative CT head was negative. Chest x-ray showed left lower lobe infiltrate versus atelectasis. UA consistent with UTI. Diagnosis sepsis received IV fluid resuscitation likely source UTI started on vancomycin and cefepime. Was admitted for further evaluation. Seen doses mild cough which is chronic. Her lactic acid is resolved since then. She has underlying history of morbid obesity/diabetes mellitus on insulin peripheral neuropathy/anxiety depression/hypertension/hyperlipidemia also on methotrexate. Will also check ABG 03/13/2023: No overnight events. ABG could not be performed. Labs were reviewed. Denies any new complaints. 03/14/2023: No overnight events. Feels less sleepy. No other events. Discussed with the family. Labs reviewed. 03/15/2023: No overnight events. Feels a little woozy when she work with therapy today. WBC still p
[2023-03-15] MEDS: levoFLOXacin 750 MG TABLET PO (17:06)
[2023-03-15 17:23] LABS: Glucose Point of Care 184 mg/dl (65-105)
[2023-03-15] MEDS: ATORVASTATIN 40 MG TABLET 80 MG PO (20:20)
[2023-03-15 20:54] LABS: Glucose Point of Care 186 mg/dl (65-105)
[2023-03-16] VITALS (15 sets, daily range): BP systolic 102–126; BP diastolic 48–84; PULSE 52–62; RESP 16–20; TEMP 36.1–36.9; O2SAT 96–100
[2023-03-16] MEDS: ACETAMINOPHEN 325 MG TABLET 650 MG PO (05:09)
[2023-03-16 06:42] LABS: Basophils Absolute Auto 0.1 K/mm3 (0.0-0.1); Basophils Percent Auto 0.6 % (0.2-1.2); Eosinophils Absolute Auto 0.3 K/mm3 (0-0.3); Eosinophils Percent Auto 2.3 % (0-4.4); Hematocrit 33.2 % (37.0-47.0); Hemoglobin 9.7 g/dL (12.0-15.0); Immature Granulocyte Absolute 0.11 K/mm3 (0.00-0.031); Immature Granulocyte Percent A 0.8 % (0-0.5); Lymphocytes Absolute Auto 1.85 K/mm3 (0.9-3.2); Lymphocytes Percent Auto 12.8 % (18.3-44.2); Mean Corpuscular HGB Conc 29.2 g/dl (32-36); Mean Corpuscular Hemoglobin 24.9 pg (26-34); Mean Corpuscular Volume 85.3 fl (80-100); Mean Platelet Volume 9.6 fl (7.4-10.4); Monocytes Absolute Auto 1.2 K/mm3 (0.1-0.6); Neutrophils Percent Auto 75.5 % (45.5-73.1); Nucleated Red Blood Cells Perc 0.1 % (0.0-0.2); Platelet Count Result 275 k/mm3 (150-375); Red Blood Count 3.89 M/mm3 (4.2-5.4); Red Cell Distribution Width 16.7 % (11.5-14.5); White Blood Count 14.5 K/mm3 (4.5-10.0)
[2023-03-16 07:03] LABS: Platelet Estimate Adequate (Adequate)
[2023-03-16 07:04] LABS: Anisocytosis 1+ (NORMAL); Schistocytes None Seen (NORMAL)
--- NOTE | 2023-03-16 08:19 | PM.IMPN ---
Progress Note: A&P Assessment and Plan (1) Acute UTI: Code(s): N39.0 - Urinary tract infection, site not specified Status: Acute (2) Altered mental status: Qualifiers: Altered mental status type: delirium Qualified Code(s): R41.0 - Disorientation, unspecified Code(s): R41.82 - Altered mental status, unspecified Status: Acute (3) Candidal skin infection: Code(s): B37.2 - Candidiasis of skin and nail Status: Acute (4) Candidal intertrigo: Code(s): B37.2 - Candidiasis of skin and nail Status: Acute (5) Morbid obesity due to excess calories: Code(s): E66.01 - Morbid (severe) obesity due to excess calories Status: Acute (6) Sepsis secondary to UTI: Code(s): A41.9 - Sepsis, unspecified organism; N39.0 - Urinary tract infection, site not specified Status: Acute Plan Acute encephalopathy 78-year-old female presented with altered mental status.? Patient was in the car with her family and went unresponsive.? EMS was called.? Was noted to be hypoxic on EMS arrival and was placed on oxygen nasal cannula 2 L. she normally uses oxygen only at night.? She is supposed to be using it 10/01.? Upon arrival to the ER she was alert and oriented and more awake.? CT head was negative.? Now patient is alert oriented x3 Sepsis, likely resulting from pneumonia and UTI Initial ED evaluation showed WBC count of 21,000 lactic acid of 5.6 troponin was normal COVID negative Chest x-ray showed left lower lobe infiltrate versus atelectasis.? UA consistent with UTI.? Diagnosis sepsis received IV fluid resuscitation likely source UTI started on vancomycin and cefepime.? Was admitted for further evaluation.? She has mild cough which is chronic.? Her lactic acid is resolved since then.? She has underlying history of morbid obesity/diabetes mellitus on insulin peripheral neuropathy/anxiety depression/hypertension/hyperlipidemia/psoriasis also on methotrexate.? ABG ordered but could not be obtained.? Stopped IV fluid 03/12.? Leukocytosis continues to improve but remained persistent.? MRSA is negative on nares.? Stopped IV vancomycin.? Blood culture x2 is negative to date.? Urine culture is no growth to date.? ontinue cefepime as ordered.? Plan to switch to Levaquin oral tab also have Pseudomonas coverage. WBC count continues to improve slowly however remains persistent.? Dehydration P.o. 52, creatinine 1.3, worse than baseline Start normal saline IV Follow-up BMP Continue oxygen supplementation as ordered.? Apnea link with desaturation noted. Recheck again in 3 L oxygen tonight. Home health at discharge Subjective Date/time seen: 03/16/23 08:19 Interval history: No overnight events. Patient feels tired, denies chest pain, shortness of breath, also denies abdomen pain, nausea vomiting. Exam Narrative: General physical exam: morbidly obese female, feels tired and fatigued Head/eyes: Atraumatic, EOMI, PERRLA ENT: +dry mucous membranes, nasal passages clear Neck: Supple, full range of motion, trachea midline CVS: S1 + S2, regular rate and rhythm, no murmurs Respiratory: Bilaterally fair air entry in both lung allen, symmetric chest expansion, no distress Abdomen: Soft, non-tender, bowel sounds +ve, no organomegaly Extremities: No clubbing, no cyanosis, no edema, no calf tenderness Musculoskeletal: Moves all, decreased range of motion, no muscle spasms Skin: Warm, dry, no jaundice, no cyanosis, + skin erythema under both breasts Neurological: Awake, alert, cranial nerves II-XII intact, no focal neurological deficits Psychiatric: Normal mood, non suicidal Objective Data Vital Signs Vital Signs: Vital Signs - 24 hr 03/15/23 08:35 03/15/23 10:00 03/15/23 08:53 Temperature 97.1 F L Pulse Rate 54 L 54 L Respiratory Rate 16 Blood Pressure 129/54 L Pulse Oximetry 99 100 Oxygen Delivery Nasal Cannula Oxygen Flow Rate 2 03/15/23 08:52
[2023-03-16 08:35] LABS: Glucose Point of Care 133 mg/dl (65-105)
[2023-03-16] MEDS: METOPROLOL TARTRATE 25 MG TABLET PO ×2 (08:42→20:40)
[2023-03-16] MEDS: DICLOFENAC SOD 75 MG TABLET.EC PO ×2 (08:42→17:16)
[2023-03-16] MEDS: lisinopriL 2.5 MG TABLET PO (08:42)
[2023-03-16] MEDS: ESCITALOPRAM OXALATE 10 MG TABLET 20 MG PO (08:42)
[2023-03-16] MEDS: GABAPENTIN 300 MG CAPSULE PO ×2 (08:42→17:16)
[2023-03-16] MEDS: PANTOPRAZOLE 40 MG TABLET PO (08:42)
[2023-03-16] MEDS: ENOXAPARIN 30 MG/0.3 ML SYRINGE SUB-Q ×2 (08:43→20:41)
[2023-03-16] MEDS: TOLNAFTATE 1% POWDER 45 GM BTL 1 APPLIC TOPICAL ×2 (08:43→20:44)
[2023-03-16] MEDS: FOLIC ACID 1 MG TABLET 4 MG PO (08:45)
[2023-03-16] MEDS: SODIUM CHLORIDE 0.9% IV 1,000 ML 125 ML IV CONT ×2 (08:45→20:39)
[2023-03-16] MEDS: INSULIN HUMAN ISOPHAN/REGULAR 70/30 (*BKC) 100 UNITS/ML 25 UNITS SUB-Q ×2 (08:45→17:51)
[2023-03-16 09:34] LABS: Anion Gap 10 mmol/L (8-16); Blood Urea Nitrogen 52 mg/dL (7-17); Calcium 8.3 mg/dL (8.4-10.2); Carbon Dioxide 17 mmol/L (22-30); Chloride 110 mmol/L (98-107); Estimated CRCL calculation 46 ml/min; Estimated Glomerular Filt Rate 40; Glucose 108 mg/dL (65-110); Potassium 4.6 mmol/L (3.4-5.0); Sodium 137 mmol/L (137-145)
[2023-03-16 12:15] LABS: Glucose Point of Care 132 mg/dl (65-105)
[2023-03-16 16:44] LABS: Glucose Point of Care 160 mg/dl (65-105)
[2023-03-16] MEDS: ATORVASTATIN 40 MG TABLET 80 MG PO (20:40)
[2023-03-16 20:56] LABS: Glucose Point of Care 190 mg/dl (65-105)
[2023-03-17] VITALS (9 sets, daily range): BP systolic 101–104; BP diastolic 42–50; PULSE 49–60; RESP 18–20; TEMP 36.1–36.4; O2SAT 99
[2023-03-17] MEDS: SODIUM CHLORIDE 0.9% IV 1,000 ML 125 ML IV CONT (07:23)
--- NOTE | 2023-03-17 08:15 | PM.IMPN ---
Progress Note: A&P Assessment and Plan (1) Acute UTI: Code(s): N39.0 - Urinary tract infection, site not specified Status: Acute (2) Altered mental status: Qualifiers: Altered mental status type: delirium Qualified Code(s): R41.0 - Disorientation, unspecified Code(s): R41.82 - Altered mental status, unspecified Status: Acute (3) Candidal skin infection: Code(s): B37.2 - Candidiasis of skin and nail Status: Acute (4) Candidal intertrigo: Code(s): B37.2 - Candidiasis of skin and nail Status: Acute (5) Morbid obesity due to excess calories: Code(s): E66.01 - Morbid (severe) obesity due to excess calories Status: Acute (6) Sepsis secondary to UTI: Code(s): A41.9 - Sepsis, unspecified organism; N39.0 - Urinary tract infection, site not specified Status: Acute Plan Acute encephalopathy 78-year-old female presented with altered mental status.? Patient was in the car with her family and went unresponsive.? EMS was called.? Was noted to be hypoxic on EMS arrival and was placed on oxygen nasal cannula 2 L. she normally uses oxygen only at night.? She is supposed to be using it 10/01.? Upon arrival to the ER she was alert and oriented and more awake.? CT head was negative.? Now patient is alert oriented x3 Sepsis, likely resulting from pneumonia and UTI Initial ED evaluation showed WBC count of 21,000 lactic acid of 5.6 troponin was normal COVID negative Chest x-ray showed left lower lobe infiltrate versus atelectasis.? UA consistent with UTI.? Diagnosis sepsis received IV fluid resuscitation likely source infection of UTI and pneumonia started on vancomycin and cefepime.? Was admitted for further evaluation.? Her lactic acid is resolved since then. now pt is afebrile, BP stable, heart rate respiratory rate within normal limits. Sepsis has resolved Leukocytosis persists, patient needs a longer course of antibiotics treatment in hospital with close monitoring further adjusting antibiotics Stopped IV fluid 03/12.? Leukocytosis continues to improve but remained persistent.? MRSA is negative on nares.? Stopped IV vancomycin.? Blood culture x2 is negative to date.? Urine culture is no growth to date.? cefepime was ordered.? switch to Levaquin iv on 03/15 have Pseudomonas coverage. WBC count continues to improve slowly however remains high. Hypoxemia now patient is on 2 L oxygen well nasal cannular, pulse ox about 99 % Patient has chronic respiratory failure, need oxygen at home. Likely secondary to morbid obesity ventilation syndrome, and exacerbated because of pneumonia ABG ordered but could not be obtained.? Dehydration P.o. 52, creatinine 1.3, worse than baseline Start normal saline IV again on 03/17 Follow-up BMP, no improvement, BUN 57, creatinine 1.7 Possible due to poor intake Will continue IV fluid Discharge plan: Patient has morbid obesity, BMI 52, and worsening general weakness because of UTI, pneumonia, and multiple comorbidities. Request PT OT to evaluate patient. Patient may benefit from rehab placement at discharge, but patient and patient's cannot afford the co-pay of rehab, I also discussed with with patient and patient's about home health at discharge, and oxygen supplement. But patient and patient also decline home health care, they state that they have oxygen supplement at home. During the morning rounding, patient and patient's requested me discharge patient today because of concern of high co-pay for hospitalization. I expressed my concern about her pneumonia and UTI that need close monitor during treatment with antibiotics in the hospital, given persist leukocytosis, even though white blood cell number is trending down. But patient and patient insist that patient be discharged today. I discussed the case with the ID pharmacist, id pharmacist provided patient one dose of Levaq
[2023-03-17 08:16] LABS: Anion Gap 6 mmol/L (8-16); Blood Urea Nitrogen 54 mg/dL (7-17); Calcium 8.2 mg/dL (8.4-10.2); Carbon Dioxide 25 mmol/L (22-30); Chloride 110 mmol/L (98-107); Estimated CRCL calculation 43 ml/min; Estimated Glomerular Filt Rate 37; Glucose 122 mg/dL (65-110); Potassium 5.1 mmol/L (3.4-5.0); Sodium 141 mmol/L (137-145)
[2023-03-17 08:20] LABS: Basophils Absolute Auto 0.1 K/mm3 (0.0-0.1); Basophils Percent Auto 0.5 % (0.2-1.2); Eosinophils Absolute Auto 0.3 K/mm3 (0-0.3); Eosinophils Percent Auto 2.4 % (0-4.4); Hematocrit 34.6 % (37.0-47.0); Hemoglobin 9.9 g/dL (12.0-15.0); Immature Granulocyte Absolute 0.12 K/mm3 (0.00-0.031); Immature Granulocyte Percent A 0.9 % (0-0.5); Lymphocytes Absolute Auto 1.99 K/mm3 (0.9-3.2); Lymphocytes Percent Auto 15.6 % (18.3-44.2); Mean Corpuscular HGB Conc 28.6 g/dl (32-36); Mean Corpuscular Hemoglobin 24.9 pg (26-34); Mean Corpuscular Volume 86.9 fl (80-100); Mean Platelet Volume 9.7 fl (7.4-10.4); Neutrophils Absolute Auto 9.2 K/mm3 (1.3-6.7); Neutrophils Percent Auto 72.6 % (45.5-73.1); Nucleated Red Blood Cells Perc 0.2 % (0.0-0.2); Platelet Count Result 288 k/mm3 (150-375); Red Blood Count 3.98 M/mm3 (4.2-5.4); White Blood Count 12.7 K/mm3 (4.5-10.0)
[2023-03-17 08:37] LABS: Glucose Point of Care 115 mg/dl (65-105)
[2023-03-17] MEDS: lisinopriL 2.5 MG TABLET PO (08:54)
[2023-03-17] MEDS: PANTOPRAZOLE 40 MG TABLET PO (08:54)
[2023-03-17] MEDS: GABAPENTIN 300 MG CAPSULE PO (08:54)
[2023-03-17] MEDS: ESCITALOPRAM OXALATE 10 MG TABLET 20 MG PO (08:54)
[2023-03-17] MEDS: FOLIC ACID 1 MG TABLET 4 MG PO (08:54)
[2023-03-17] MEDS: ENOXAPARIN 30 MG/0.3 ML SYRINGE SUB-Q (08:55)
[2023-03-17] MEDS: METOPROLOL TARTRATE 25 MG TABLET PO (08:55)
[2023-03-17] MEDS: DICLOFENAC SOD 75 MG TABLET.EC PO (08:55)
[2023-03-17] MEDS: TOLNAFTATE 1% POWDER 45 GM BTL 1 APPLIC TOPICAL (08:56)
[2023-03-17] MEDS: INSULIN HUMAN ISOPHAN/REGULAR 70/30 (*BKC) 100 UNITS/ML 25 UNITS SUB-Q (09:06)
[2023-03-17 12:10] LABS: Glucose Point of Care 121 mg/dl (65-105)
--- NOTE | 2023-03-17 13:02 | PM.DS ---
DS: Admitting Diagnosis Discharge Date today Admitting Diagnosis (1) Acute UTI: ?Code(s): N39.0 - Urinary tract infection, site not specified ?Status:?Acute (2) Altered mental status: ?Qualifiers: ?Altered mental status type:?delirium? Qualified Code(s):?R41.0 - Disorientation, unspecified ?Code(s): R41.82 - Altered mental status, unspecified ?Status:?Acute (3) Candidal skin infection: ?Code(s): B37.2 - Candidiasis of skin and nail ?Status:?Acute (4) Candidal intertrigo: ?Code(s): B37.2 - Candidiasis of skin and nail ?Status:?Acute (5) Morbid obesity due to excess calories: ?Code(s): E66.01 - Morbid (severe) obesity due to excess calories ?Status:?Acute (6) Sepsis secondary to UTI: ?Code(s): A41.9 - Sepsis, unspecified organism; N39.0 - Urinary tract infection, site not specified ?Status:?Acute DS: Discharge Diagnosis Discharge Diagnosis (1) Acute UTI: Code(s): N39.0 - Urinary tract infection, site not specified Status: Acute (2) Altered mental status: Qualifiers: Altered mental status type: delirium Qualified Code(s): R41.0 - Disorientation, unspecified Code(s): R41.82 - Altered mental status, unspecified Status: Acute (3) Candidal skin infection: Code(s): B37.2 - Candidiasis of skin and nail Status: Acute (4) Candidal intertrigo: Code(s): B37.2 - Candidiasis of skin and nail Status: Acute (5) Morbid obesity due to excess calories: Code(s): E66.01 - Morbid (severe) obesity due to excess calories Status: Acute (6) Sepsis secondary to UTI: Code(s): A41.9 - Sepsis, unspecified organism; N39.0 - Urinary tract infection, site not specified Status: Acute DS: Summary Hospital Course Hospital Course: Per H&P, she is a very pleasant 78 years old morbidly obese female who lives with her family at home. According to her , she is feeling weak and tired and sleeping most of the day since yesterday.? They went for dinner and on the way home, she passed out at the passenger seat.? Family got concerned, called EMS and brought the patient to ER for evaluation.? Workup was done which showed raging UTI? with sepsis.? Patient was given aggressive IV hydration and IV antibiotics. ? Upon my evaluation in the ER, she? is getting back to her normal self and answered my questions appropriately. She is being admitted to the medical floor for IV antibiotics and medical management. The following medical issues have been addressed during hospitalization Acute encephalopathy 78-year-old female presented with altered mental status.? Patient was in the car with her family and went unresponsive.? EMS was called.? Was noted to be hypoxic on EMS arrival and was placed on oxygen nasal cannula 2 L. she normally uses oxygen only at night.? She is supposed to be using it 10/01.? Upon arrival to the ER she was alert and oriented and more awake.? CT head was negative.? Now patient is alert oriented x3 Sepsis, likely resulting from pneumonia and UTI Initial ED evaluation showed WBC count of 21,000 lactic acid of 5.6 troponin was normal COVID negative Chest x-ray showed left lower lobe infiltrate versus atelectasis.? UA consistent with UTI.? Diagnosis sepsis received IV fluid resuscitation likely source infection of UTI and pneumonia started on vancomycin and cefepime.? Was admitted for further evaluation.? Her lactic acid is resolved since then. now pt is afebrile, BP stable, heart rate respiratory rate within normal limits. Sepsis has resolved Leukocytosis persists, patient needs a longer course of antibiotics treatment in hospital with close monitoring further adjusting antibiotics Stopped IV fluid 03/12.? Leukocytosis continues to improve but remained persistent.? MRSA is negative on nares.? Stopped IV vancomycin.? Blood culture x2 is negative to date.? Urine culture is no growth
[2023-03-17] MEDS: levoFLOXacin 750 MG TABLET PO (13:45)
--- NOTE | 2023-03-17 21:31 | PM.IMHP ---
H&P: HPI History of Present Illness Date/Time: 03/17/23 21:31 Chief Complaint: Cardiopulmonary arrest Narrative: 78 years old gentleman with history of morbid obesity, chronic respiratory possible obesity ventilation syndrome, was admitted in the hospital on March 11 for acute metabolic encephalopathy, sepsis due to pneumonia, UTI during hospitalization, patient was also found to have dehydration. During hospitalization, patient received vancomycin, cefepime. Blood culture and urine culture was done, no growth of bacteria, patient was switched to Levaquin p.o. but patient has persists leukocytosis. O2 desaturation is improving, currently patient is on 2 L nasal cannular pulse ox about 99. Patient has morbid obesity, has difficulty with ambulation. Patient was advised to be discharged to rehab or home health care. Patient family has concerns of co-pay, and patient declined to be discharged either rehab or home health. Today patient and family requested to be discharged home, although patient and the family was advised to stay in the hospital for continue antibiotics treatment and close monitoring because of persistent leukocytosis. Although patient was feeling better, and patient also denied chest pain, shortness of breath, abdomen pain, nausea vomiting. Patient was afebrile in past few more days, blood pressure was stable. Patient was discharged blood patient and and patient's hospital request. Per nurse report, patient and family declined oxygen bag when patient was transferred to patient's vehicle. Per your report, on getting into her vehicle she went unresponsive. EMS and ED staff helped patient out of the car and she was noted to be in respiratory arrest, and patient also found have PEA. She was brought into the ED where she was started on ACLS protocol. Repeated labs showed worsening leukocytosis. CT of chest shows no PE, but possible pulmonary edema and pneumonia. CT head shows no acute intracranial issues . Patient is transferred to ICU for close monitoring. Review of Systems Review of Systems: Patient is unresponsive, [facility] Past Medical History Medical History (Updated 03/17/23 @ 21:50 by Issa Mccauley MD) Morbid obesity due to excess calories Family History Family History Father Congestive heart failure Sibling Diabetes mellitus Social History Social History Smoking status: Never smoker Alcohol intake: never Substance use: never Substance use type: does not use Lack of Transportation: No Lack of Food: Never True Current Housing: I Have Housing Concerned About Future Housing: No Difficulty Paying Gas/Electric Bills: No Difficulty Paying for Meds: No Currently Unemployed: No Education: High School Diploma/GED Difficulty w/ Childcare or Family Care: No Spiritual care concerns: No Meds Home Medications and Allergies Home Medications Medication Instructions Recorded Confirmed Type atorvastatin 80 mg tablet 80 mg PO HS 03/11/23 03/17/23 History diclofenac sodium 75 mg 75 mg PO BID 03/11/23 03/17/23 History tablet,delayed release escitalopram oxalate 20 mg tablet 20 mg PO DAILY 03/11/23 03/17/23 History folic acid 1 mg tablet 4 mg PO DAILY 03/11/23 03/17/23 History gabapentin 300 mg capsule 300 mg PO BID 03/11/23 03/17/23 History insulin human U-100 NPH-regulr 50 unit subcut BID 03/11/23 03/17/23 History 70-30 mix 100 unit/mL subcutaneous susp (Novolin 70/30 U-100 Insulin) lisinopril 2.5 mg tablet 2.5 mg PO DAILY 03/11/23 03/17/23 History methotrexate sodium 2.5 mg tablet 15 mg PO WEEKLY 03/11/23 03/17/23 History metoprolol tartrate 25 mg tablet 25 mg PO BID 03/11/23 03/17/23 History nystatin 100,000 unit/gram topical 1 applic topical DAILY 03/11/23 03/17/23 History powder pantoprazole 40 mg tablet,delayed 40 mg PO DAILY 03/11/23 03/17/23 History release
--- NOTE | 2023-03-25 20:36 | PM.DS ---
DS: Admitting Diagnosis Discharge Date 03/17/23 Admitting Diagnosis (1) Acute UTI: ?Code(s): N39.0 - Urinary tract infection, site not specified ?Status:?Acute (2) Altered mental status: ?Qualifiers: ?Altered mental status type:?delirium? Qualified Code(s):?R41.0 - Disorientation, unspecified ?Code(s): R41.82 - Altered mental status, unspecified ?Status:?Acute (3) Candidal skin infection: ?Code(s): B37.2 - Candidiasis of skin and nail ?Status:?Acute (4) Candidal intertrigo: ?Code(s): B37.2 - Candidiasis of skin and nail ?Status:?Acute (5) Morbid obesity due to excess calories: ?Code(s): E66.01 - Morbid (severe) obesity due to excess calories ?Status:?Acute (6) Sepsis secondary to UTI: ?Code(s): A41.9 - Sepsis, unspecified organism; N39.0 - Urinary tract infection, site not specified DS: Summary Time Spent with Patient Time attestation: Total time spent providing and/or coordinating discharge services: Discharge Plan Discharge Attending physician on discharge: Issa Mccauley Consulting providers: Thom Nicholas; Jaukb Smith; Clayton Madrid; Jorge Oakes; Jim Murdock Discharging Clinician: Issa Mccauley Anticipated Discharge Date/Time: 03/15/23 15:17 Patient Disposition: Home, Self-Care Activity: as tolerated Diet: heart healthy and diabetic Discharge Instructions: Please contact or take these orders to outpatient therapy center of choice, contracted with your insurance for PT/OT evaluations and treatment. conintue oxygen at home setting. follow up with your pcp regarding sleep apnea testing and treatment Patient Instructions: Antibiotic Form Stand Alone Forms: General Discharge Information Follow-up/Referrals: Thom Nicholas [Other] - 1 Week Discharge Medications: Continued atorvastatin 80 mg tablet 80 mg PO HS Novolin 70/30 U-100 Insulin 100 unit/mL (70-30) suspension 50 unit SUBCUT BID spironolactone 25 mg tablet 25 mg PO DAILY methotrexate sodium 2.5 mg tablet 15 mg PO WEEKLY Rx Instructions: TAKES ON SUNDAYS pantoprazole 40 mg tablet,delayed release (DR/EC) 40 mg PO DAILY gabapentin 300 mg capsule 300 mg PO BID diclofenac sodium 75 mg tablet,delayed release (DR/EC) 75 mg PO BID folic acid 1 mg tablet 4 mg PO DAILY Rx Instructions: NONE ON SUNDAYS nystatin 100,000 unit/gram powder 1 applic TOPICAL DAILY lisinopril 2.5 mg tablet 2.5 mg PO DAILY escitalopram oxalate 20 mg tablet 20 mg PO DAILY metoprolol tartrate 25 mg tablet 25 mg PO BID Date of admission: 03/11/23 19:58 Primary Care Provider: PHYSICIAN NOT ON STAFF,NONSTAFF Admitting Provider: Donny Hitchcock Attending physician on admission: Issa Mccauley Condition: Improved
== END 2023-03-17 14:05 | disposition home or self-care (01) | DRG 871 ==
LOC: ANHED 19:58 → ANH2MED 20:52
PROVIDERS: Emergency Medicine; Admitting Provider Family Medicine; Emergency Provider Student in an Organized Health Care Education/Training Program; Visit Provider Hospitalist
DX: J18.9 Pneumonia, unspecified organism; A41.9 Sepsis, unspecified organism; Z68.43 Body mass index [BMI] 50.0-59.9, adult; N39.0 Urinary tract infection, site not specified; B37.2 Candidiasis of skin and nail; E66.01 Morbid (severe) obesity due to excess calories; E11.42 Type 2 diabetes mellitus with diabetic polyneuropathy; E78.5 Hyperlipidemia, unspecified; F41.8 Other specified anxiety disorders; I10 Essential (primary) hypertension; L40.9 Psoriasis, unspecified; R41.0 Disorientation, unspecified; R05.3 Chronic cough; E86.0 Dehydration; Z99.81 Dependence on supplemental oxygen; Z79.4 Long term (current) use of insulin; Z20.822 Contact with and (suspected) exposure to COVID-19
CPT/HCPCS: 12013; 36415; 36556; 36600; 70450; 71045; 71275; 76775; 80048; 80053; 81001; 82375; 82550; 82805; 82948; 83050; 83605; 83735; 83880; 84100; 84145; 84484; 85025; 85027; 85610; 85730; 86140; 86704; 86706; 87040; 87070; 87081; 87086; 87205; 87340; 87635; 92950; 93005; 94003; 94762; 95816; 96361; 96365; 96367; 97110; 97116; 97161; 97165; 97530; 97535; 99285; 99291; A9270; C1751; C8929; C9113; J0171; J0461; J0692; J1250; J1650; J1720; J1815; J1836; J1940; J1953; J2060; J2250; J2270; J3010; J3370; J7030; J7040; J7060; J7120; P9047; Q9957; Q9967

== ENCOUNTER 2023-03-17 14:26 | Inpatient (IN) | payer OTHER, SELFPAY ==
[2023-03-17] VITALS (24 sets, daily range): BP systolic 85–163; BP diastolic 48–88; PULSE 59–115; RESP 14–24; TEMP 35.9–36.6; O2SAT 91–100; BMI 55.5
--- NOTE | ~2023-03-17 | US_ITS ---
EXAMINATION: US renal BI DATE: 03/18/2023 10:45 INDICATION: Acute kidney injury. TECHNIQUE: Multiple ultrasound grayscale images of the kidneys were obtained. COMPARISON: CT 03/17/2023 FINDINGS: The right kidney measures 10.7 x 5.6 x 5.9 cm. The left kidney measures 12.1 x 6.7 x 6.3 cm. The kidn eys demonstrate normal parenchymal echogenicity. There is an 8 mm cyst in right kidney. There is no h ydronephrosis. The bladder is decompressed by a Larose catheter. IMPRESSION: 1. Normal kidney sizes. No hydronephrosis. Reviewed, dictated and finalized at location E.
--- NOTE | ~2023-03-17 | XR_ITS ---
XR chest 1V portable 03/18/2023 09:04 Indication: Increased oxygen demands Procedure: AP portable chest Comparison: 03/18/2023 Findings: There is an endotracheal tube tip 4 cm above the mercedes. NG tube in the stomach. Cardiomega ly with pulmonary edema. Small pleural effusions. No pneumothorax. Impression: 1: Moderate cardiomegaly with progression of pulmonary edema. Reviewed, dictated and finalized at location B. Impression: 1: Moderate cardiomegaly with progression of pulmonary edema.
--- NOTE | ~2023-03-17 | CT_ITS ---
EXAMINATION: CTA chest PE protocol DATE: 03/17/2023 15:45 INDICATION: Cardiac arrest TECHNIQUE: Computed tomography angiography (CTA) of the chest was performed with 100 mL Omnipaque-350 intravenous contrast timed to evaluate the pulmonary arteries. Coronal maximum intensity projection 3D-reconstructions were created by the technologist. The dose-length product (DLP) was 912.02 mGy-cm. Automated exposure control and iterative reconstruction technique were employed. COMPARISON: None. FINDINGS: There is fair to moderate opacification of the pulmonary arteries. Respiratory motion artif act also slightly limits the examination. No central pulmonary embolus is identified. There are diffu se interstitial and airspace opacities of the lungs with significant opacification of the right lung, moderate opacification of the left lower lobe, and mild opacification of the left upper lobe. There are small pleural effusions. No pneumothorax is identified. Cardiomegaly is noted. The endotracheal t ube is approximately 12 mm above the mercedes. There is severe thoracic spondylosis. IMPRESSION: 1. Diffuse lung disease, consistent with pneumonia and/or pulmonary edema. 2. No central pulmonary embolus identified however sensitivity predominantly limited by respiratory m otion artifact. Reviewed, dictated and finalized at location F. IMPRESSION: 1. Diffuse lung disease, consistent with pneumonia and/or pulmonary edema. 2. No central pulmonary embolus identified however sensitivity predominantly li mited by respiratory motion artifact.
--- NOTE | ~2023-03-17 | XR_ITS ---
XR_KUBGTUBINS_CR INDICATION: Evaluate NG tube position. TECHNIQUE: Limited KUB perform for evaluating NG tube . COMPARISON: No prior studies for comparison. FINDINGS: NG tube tip in the stomach. Visualized bowel gas pattern is unremarkable. IMPRESSION: 1: NG tube tip in the stomach. Reviewed, dictated and finalized at location L.
--- NOTE | ~2023-03-17 | XR_ITS ---
EXAMINATION: XR chest 1V portable INDICATION: Respiratory failure TECHNIQUE: Portable AP chest at 0510 hours COMPARISON: 03/19/2023 FINDINGS: The endotracheal tube ends approximately 2.9 cm above the mercedes. The nasogastric tube is f ollowed as far as the stomach. Its tip is beyond the inferior margin of the radiograph. There are dif fuse interstitial and airspace opacities throughout all lung zones which demonstrate interval improve ment on the left. No pleural effusion or pneumothorax. The cardiomediastinal silhouette is stable. IMPRESSION: 1. Diffuse lung disease with interval improvement on the left, consistent with pneumonia and/or pulmo nary edema. Reviewed, dictated and finalized at location F. IMPRESSION: 1. Diffuse lung disease with interval improvement on the left, consistent with pneumonia and/or pulmonary edema.
--- NOTE | ~2023-03-17 | CT_ITS ---
EXAMINATION: CT brain wo con INDICATION: Transient alteration of awareness COMPARISON: 03/17/2023 TECHNIQUE: Standard unenhanced head CT. The dose-length product (DLP) was 605.33 mGy-cm. The mA was a djusted according to patient size. Iterative reconstruction technique was employed. FINDINGS: No acute intraparenchymal hemorrhage. No evidence of mass lesion. No evidence of acute infa rction. There is mild periventricular and subcortical hypodensity probably related to small vessel is chemic disease. There is mild prominence of the sulci and ventricles related to cerebral atrophy. Int racranial calcified cerebral atherosclerosis is noted. No extra-axial collections. No mass effect or midline shift. The orbits and soft tissues are unremarkable. There is mild mucosal thickening of the paranasal sinuses. IMPRESSION: 1. No acute intracranial abnormality. 2. Age related findings. Reviewed, dictated and finalized at location F.
--- NOTE | ~2023-03-17 | XR_ITS ---
EXAMINATION: XR chest 1V portable DATE: 03/21/2023 06:14 INDICATION: Respiratory failure. TECHNIQUE: A single frontal view of the chest was obtained. COMPARISON: Chest single view 03/20/2023, chest CT 03/09/2023 FINDINGS: There are airspace opacities in the mid and lower lung zones. No pleural effusion or pneumo thorax. Cardiomegaly is noted. The endotracheal tube tip is 5.0 cm above the mercedes. The nasogastric tube tip is beyond the inferior margin of the radiograph, but at least to the stomach. IMPRESSION: 1. Airspace opacities in the mid and lower lung zones with interval improvement, consistent with pneu monia. 2. Cardiomegaly. Reviewed, dictated and finalized at location E. IMPRESSION: 1. Airspace opacities in the mid and lower lung zones with interval improvement , consistent with pneumonia. 2. Cardiomegaly.
--- NOTE | ~2023-03-17 | XR_ITS ---
EXAMINATION: XR chest 1V portable DATE: 03/18/2023 05:36 INDICATION: Intubated. TECHNIQUE: A single frontal view of the chest was obtained. COMPARISON: Chest single view 03/17/2023, chest CT 03/17/2023 FINDINGS: There are airspace opacities in the right lung with a perihilar predominance. There are air space opacities in left mid and lower lung zones with a perihilar predominance. No pleural effusion o r pneumothorax. Cardiomegaly is noted. The endotracheal tube tip is 2.3 cm above the mercedes. The naso gastric tube tip is beyond the inferior margin of the radiograph, but at least to the stomach. IMPRESSION: 1. Diffuse lung disease with a perihilar predominance with interval improvement, consistent with pulm onary edema versus pneumonia. 2. Cardiomegaly. Reviewed, dictated and finalized at location E. IMPRESSION: 1. Diffuse lung disease with a perihilar predominance with interval improvement , consistent with pulmonary edema versus pneumonia. 2. Cardiomegaly.
--- NOTE | ~2023-03-17 | XR_ITS ---
EXAMINATION: XR chest 1V portable INDICATION: Respiratory failure TECHNIQUE: Portable AP chest at 0434 hours COMPARISON: 03/18/2023 FINDINGS: The endotracheal tube ends approximately 2.2 cm above the mercedes. The nasogastric tube is f ollowed as far as the stomach. Its tip is beyond the inferior margin of the radiograph. The lung volu mes are low. There are worsening airspace opacities throughout the lungs, left greater than right. No pleural effusion or pneumothorax. Cardiomediastinal silhouette is stable. IMPRESSION: 1. Diffuse lung disease with interval worsening, consistent with pneumonia and/or pulmonary edema. Reviewed, dictated and finalized at location F. IMPRESSION: 1. Diffuse lung disease with interval worsening, consistent with pneumonia and/ or pulmonary edema.
--- NOTE | ~2023-03-17 | CT_ITS ---
EXAMINATION: CT brain wo con INDICATION: Altered mental status, cardiac arrest COMPARISON: 03/11/2023 TECHNIQUE: Standard unenhanced head CT. The dose-length product (DLP) was 681.00 mGy-cm. The mA was a djusted according to patient size. Iterative reconstruction technique was employed. FINDINGS: Motion artifact and streak artifact slightly limit the examination. No acute intraparenchym al hemorrhage. No evidence of mass lesion. No evidence of acute infarction. There is mild periventric ular and subcortical hypodensity probably related to small vessel ischemic disease. There is mild pro minence of the sulci and ventricles related to cerebral atrophy. Intracranial calcified cerebral athe rosclerosis is noted. No extra-axial collections. No mass effect or midline shift. The orbits and sof t tissues are unremarkable. The visualized sinuses and mastoid air cells are well aerated. IMPRESSION: 1. No acute intracranial abnormality. 2. Age related findings. Reviewed, dictated and finalized at location F.
--- NOTE | ~2023-03-17 | XR_ITS ---
XR chest ET placement DATE: 03/17/2023 15:15 INDICATION: Postintubation TECHNIQUE: Portable supine AP view on 03/17/2023 at 1509 hours COMPARISON: 03/11/2023 AP chest FINDINGS: ET tube tip is 1.6 cm above mercedes; ideal range is 2-5 cm. An NG tube is noted passing into the stomach. Cardiomegaly. There is pulmonary vascular congestion. There are prominent bilateral pulmonary infiltr ates which predominate centrally, right greater than left. The distribution and the possible minor fi ssure suggests pulmonary edema. Small pleural effusions cannot be excluded. IMPRESSION: Interval prominent bilateral pulmonary infiltrates, more prominent centrally, new since , suggesting pulmonary edema ET tube tip 1.6 cm above mercedes; ideal range is 2 out of 5 cm NG tube in stomach Reviewed, dictated and finalized at Location A. Reviewed, dictated and finalized at location A. IMPRESSION: Interval prominent bilateral pulmonary infiltrates, more prominent centrally, new since 03/11/2023, suggesting pulmonary edema ET tube tip 1.6 cm above mercedes; ideal range is 2 out of 5 cm NG tube in stomach
--- NOTE | ~2023-03-17 | XR_ITS ---
Portable chest x-ray Comparison: 03/21/2023 Clinical History: Respiratory failure Findings: Endotracheal tube and NG tube are in satisfactory positions. There is probable minimal evelin tral pulmonary edema. No definite pleural effusion or pneumothorax. Cardiomediastinal silhouette is stable. Bones and soft tissues are unremarkable. Impression: Probable minimal central pulmonary edema. Correlate clinically for infection. Support tubes, as above. Reviewed, dictated and finalized at [facility]. Impression: Probable minimal central pulmonary edema. Correlate clinically for infection. Support tubes, as above.
--- NOTE | 2023-03-17 14:36 | PC.NURSE ---
Pt intubated at this time, 06/21, 21 at the lips, positive color change, equal chest rise and fall.
--- NOTE | 2023-03-17 14:51 | ECG_ITS ---
Measurements Intervals [place] Rate: 88 P: 7 [place]: 216 QRS: 104 QRSD: 141 T: -38 QT: 385 QTc: 468 Interpretive Statements SINUS RHYTHM WITH FIRST DEGREE AV BLOCK RIGHT AXIS DEVIATION RIGHT BUNDLE BRANCH BLOCK BASELINE WANDER- I, II, V1-V2 ABNORMAL ECG COMPARED TO ECG 03/11/2023 16:48:40 FIRST DEGREE AV BLOCK NOW PRESENT RIGHT BUNDLE BRANCH BLOCK NOW PRESENT Electronically Signed On 03-17-2023 15:29:15 CDT by Clayton Madrid D.O.
--- NOTE | 2023-03-17 14:55 | ED.CPR ---
HPI - CPR General Chief Complaint: Cardiac Arrest/CPR Stated Complaint: CODE BLUE Time Seen by Provider: 03/17/23 14:50 History of Present Illness HPI narrative: Patient is a 78 year old female here with cardiac arrest. Patient was just discharged here today, on getting into her vehicle she went unresponsive. EMS and ED staff helped patient out of the car and she was noted to be in cardiac arrest. She was brought into the ED where she was started on ACLS protocol. Daughter notes that patient said she was not feeling well prior to discharge today but that she was also not feeling great during her PT/OT. states that he had gotten her into the car and she then slumped over in her seat in the car. She did not respond, was not breathing. drove around and flagged down EMS who helped her into the ER. Related Data Home Medications Medication Instructions Recorded Confirmed atorvastatin 80 mg tablet 80 mg PO HS 03/11/23 03/11/23 diclofenac sodium 75 mg 75 mg PO BID 03/11/23 03/11/23 tablet,delayed release escitalopram oxalate 20 mg tablet 20 mg PO DAILY 03/11/23 03/11/23 folic acid 1 mg tablet 4 mg PO DAILY 03/11/23 03/11/23 gabapentin 300 mg capsule 300 mg PO BID 03/11/23 03/11/23 insulin human U-100 NPH-regulr 50 unit subcut BID 03/11/23 03/11/23 70-30 mix 100 unit/mL subcutaneous susp (Novolin 70/30 U-100 Insulin) lisinopril 2.5 mg tablet 2.5 mg PO DAILY 03/11/23 03/11/23 methotrexate sodium 2.5 mg tablet 15 mg PO WEEKLY 03/11/23 03/11/23 metoprolol tartrate 25 mg tablet 25 mg PO BID 03/11/23 03/11/23 nystatin 100,000 unit/gram topical 1 applic topical DAILY 03/11/23 03/11/23 powder pantoprazole 40 mg tablet,delayed 40 mg PO DAILY 03/11/23 03/11/23 release spironolactone 25 mg tablet 25 mg PO DAILY 03/11/23 03/11/23 Allergies Allergy/AdvReac Type Severity Reaction Status Date / Time Sulfa (Sulfonamide Allergy Unknown Verified 03/11/23 16:40 Antibiotics) Review of Systems Review of Systems: ROS unobtainable: Yes unobtainable due to medical condition PMFSH Past Medical History Medical History (Updated 03/17/23 @ 18:27 by Rosmery Oliver MD) Morbid obesity due to excess calories Family History Family History Father Congestive heart failure Sibling Diabetes mellitus Social History Social History Smoking status: Never smoker Alcohol intake: never Substance use: never Lack of Transportation: No Lack of Food: Never True Current Housing: I Have Housing Concerned About Future Housing: No Difficulty Paying Gas/Electric Bills: No Difficulty Paying for Meds: No Currently Unemployed: No Education: High School Diploma/GED Difficulty w/ Childcare or Family Care: No Spiritual care concerns: No Exam Narrative: GENERAL: Unresponsive, receiving CPR HEAD: Normocephalic, atraumatic. EYES: PERRLA ENT: Nares clear. Mucous membranes moist. NECK: Supple. CHEST: Bagging respirations, no spontaneous breaths. HEART: Pulseless, receiving CPR. ABDOMEN: Soft, nondistended. Obese abdomen. EXTREMITIES: No extremity trauma. No edema. SKIN: Warm, dry, rash under bilateral breast consistent with yeast dermatitis. NEURO: unresponsive, no response to pain. Course Course Emergency Course: Patient seen evaluated on arrival to the emergency department. She is pulseless, receiving baking respirations. ACLS protocol followed with epinephrine and CPR. Concern for mild hyperkalemia at discharge, calcium and bicarb given in addition to epinephrine. Difficult intubation due to body habitus. ETT placed by myself successfully. No palpable pulse however POC ultrasound shows good cardiac activity. ROSC obtained confirming with Doppler over DP. Patient did tan down a second time, ROSC obtained with first round of epinephrine and CPR. Epinephrine gtt started. Patient updated o
--- NOTE | 2023-03-17 15:40 | PC.NURSE ---
Pt to CT scan via stretcher on monitor w/ RESP in assist.
[2023-03-17 15:48] LABS: Appearance Urine Clear (Clear); Bacteria Urine None Seen /hpf; Bilirubin Urine Negative (Negative); Blood Urine 1+ (Negative); Budding Yeast Urine Present /hpf; Color Urine Yellow (Yellow); Glucose Urine UA Negative (Negative); Ketones Urine Trace mg/dL (Negative); Leukocyte Esterase Ur Trace LEU/UL (Negative); Need Manual Microscopic Reviewed; Nitrate Urine Negative (Negative); Protein Urine 1+ mg/dL (Negative); Specific Grav Ur 1.021 (1.001-1.035); Squamous Epithelial Cell Urine None seen /hpf (Few); Urobilinogen Urine 0.2 mg/dL (<2.0); pH Urine 5.5 (5.0-9.0)
[2023-03-17 15:49] LABS: Add Urine Microscopic? YES
[2023-03-17 15:50] LABS: Glucose Point of Care 195 mg/dl (65-105)
[2023-03-17 16:07] LABS: SARS-CoV-2 RNA PCR Negative (Negative)
[2023-03-17 16:13] LABS: Hematocrit 35.5 % (37.0-47.0); Hemoglobin 10.2 g/dL (12.0-15.0); Mean Corpuscular HGB Conc 28.7 g/dl (32-36); Mean Corpuscular Hemoglobin 25.4 pg (26-34); Mean Corpuscular Volume 88.5 fl (80-100); Mean Platelet Volume 9.7 fl (7.4-10.4); Platelet Count Result 291 k/mm3 (150-375); Red Blood Count 4.01 M/mm3 (4.2-5.4); Red Cell Distribution Width 17.1 % (11.5-14.5); White Blood Count 27.8 K/mm3 (4.5-10.0)
[2023-03-17 16:26] LABS: Alanine Aminotransferase 63 U/L (6-35); Albumin Level 2.9 g/dL (3.5-5.1); Alkaline Phosphatase 137 U/L (38-126); Anion Gap 12 mmol/L (8-16); Aspartate Amino Transferase 112 U/L (14-36); Bilirubin,Total 0.7 mg/dL (0.2-1.3); Blood Urea Nitrogen 57 mg/dL (7-17); CRP 2.3 mg/dL (<1.0); Calcium 8.4 mg/dL (8.4-10.2); Carbon Dioxide 16 mmol/L (22-30); Chloride 110 mmol/L (98-107); Estimated Glomerular Filt Rate 29; Glucose 136 mg/dL (65-110); Magnesium 2.1 mg/dL (1.6-2.3); Sodium 138 mmol/L (137-145)
[2023-03-17 16:27] LABS: INR 1.4
[2023-03-17 16:28] LABS: Partial Thromboplastin Time 32.6 SECONDS (22.3-36.8)
[2023-03-17] MEDS: EPINEPHrine INJ 1 MG in DEXTROSE 5% IN WATER 250 ML 75.3 MG IV CONT (16:30)
[2023-03-17 16:38] LABS: NT Pro B Type Natriuretic Pept 4600 pg/mL (19.9-100); Troponin I 0.198 ng/mL (0.000-0.034)
[2023-03-17 16:43] LABS: Alveolar/Arterial O2 Gradient 574.3 mmHg; Fractional Inspired Oxygen 100 %; HCO3 ABG 18.8 mEq/l (22.0-26.0); Oxygen Content ABG 15.3 %vol (16.0-22.0); Oxygen Saturation ABG 93.3 % (95.0-100.0); Oxyhemoglobin 92.5 % THb (90.0-100.0); PO2 ABG 84.7 mmHg (80.0-100.0); PO2 FiO2 Ratio Arterial Blood 0.85 %; Site Drawn RIGHT RADIAL; Total Hemoglobin 11.7 g/dL (12.0-18.0); pH ABG 7.159 (7.350-7.450)
[2023-03-17 16:44] LABS: Arterial Blood Gas PEEP 8 cmH2O; Arterial Blood Gas Tidal Volume 400 ml; Arterial Blood Gas Vent Mode CMV; Arterial Blood Gas Ventilator rate 16 /MIN; Device VENTILATOR
--- NOTE | 2023-03-17 17:18 | PC.NURSE ---
Bonny from ICU at bedside to assist Dr. Oliver with Art line
[2023-03-17 17:21] LABS: Band Neutrophils Percent 3 % (0-6); Lymphocytes Absolute Manual 4.17 K/mm3 (1.1-4.5); Monocytes Absolute Manual 0.83 K/mm3 (0.1-0.90); Monocytes Percent Manual 3 % (3-9); Neutrophils Absolute Manual 22.79 K/mm3 (1.7-7.2); Neutrophils Percent Manual 79 % (46-73); Platelet Estimate Adequate (Adequate); Schistocytes None Seen (NORMAL); Total Cells Counted 100
[2023-03-17 17:22] LABS: Anisocytosis 1+ (NORMAL); Hypochromasia 1+ (NORMAL)
[2023-03-17] MEDS: FENTANYL 2,500MCG/NS250ML(*CRX 2,500 MCG/250 ML BAG IV CONT (18:01)
[2023-03-17] MEDS: fentaNYL CITRATE INJ (*CRX) 100 MCG/2 ML VIAL IV PUSH (18:01)
--- NOTE | 2023-03-17 18:10 | PC.NURSE ---
EDP Dr Oliver at bedside at this time, central line placed, attempting ART line, ICU nurses at bedside in assist. Fentanyl gtt initiated as ordered.
--- NOTE | 2023-03-17 18:25 | ADMGEN ---
This patient, Jaida Hadley, was admitted to Intensive Care Unit-3. Patient/family oriented to hospital policies and general routines including ID bracelet, bed and alarms, visiting hours, pain management, procedures, bathroom and other care routines, personal items, smoking policy, room service/diet, and visiting hours. Information on how to activate the Rapid Response Team has been discussed. Patient/Family are encouraged to report perceived risks to care and to ask questions if they do not understand what they are told or what they should do.
[2023-03-17 19:36] LABS: Alveolar/Arterial O2 Gradient 537.3 mmHg; Base Excess ABG -10.4 mEq/l (+/-2.0); Fractional Inspired Oxygen 100 %; HCO3 ABG 17.7 mEq/l (22.0-26.0); Oxygen Content ABG 15.7 %vol (16.0-22.0); Oxygen Saturation ABG 97.7 % (95.0-100.0); Oxyhemoglobin 96.5 % THb (90.0-100.0); PCO2 ABG 48.4 mmHg (35.0-45.0); PO2 ABG 127.3 mmHg (80.0-100.0); PO2 FiO2 Ratio Arterial Blood 1.27 %; Total Hemoglobin 11.4 g/dL (12.0-18.0)
[2023-03-17 19:38] LABS: Device VENTILATOR; Modified Allen's Test Pass; Site Drawn LEFT RADIAL; pH ABG 7.181 (7.350-7.450)
[2023-03-17 19:39] LABS: Arterial Blood Gas PEEP 8 cmH2O; Arterial Blood Gas Tidal Volume 400 ml; Arterial Blood Gas Vent Mode CMV; Arterial Blood Gas Ventilator rate 18 /MIN
[2023-03-17] MEDS: EPINEPHrine INJ 4 MG in DEXTROSE 5% IN WATER 250 ML 38.1 MG IV CONT (19:58)
[2023-03-17] MEDS: levETIRAcetam 1000MG/NACL100ML 1,000 MG/100 ML BAG 400 MG IVPB (20:09)
[2023-03-17 20:10] LABS: Glucose Point of Care 162 mg/dl (65-105)
[2023-03-17] MEDS: SODIUM BICARBONATE 8.4% 50 MEQ/50 ML SYRINGE IV PUSH (20:10)
[2023-03-17] MEDS: PANTOPRAZOLE SODIUM IV 40 MG VIAL IV PUSH (20:10)
[2023-03-17] MEDS: MINERAL OIL/WHITE PETROLATUM OINTMENT 1 APPLIC EACH EYE (20:11)
[2023-03-17] MEDS: MIDAZOLAM 100MG/NS 100ML(*CRX) 100 MG/100 ML BAG IV CONT (20:11)
[2023-03-17 20:36] LABS: Lactic Acid Reflex 4.2 mmol/L (0.7-2.0)
[2023-03-17 20:42] LABS: Troponin I 0.495 ng/mL (0.000-0.034)
[2023-03-17 20:54] LABS: Procalcitonin 0.4 ng/mL
--- NOTE | 2023-03-17 21:31 | HP_ITS ---
This report was moved to the correct visit, [id number] on 03/18/23. Original report was signed by Issa Mccauley MD 03/17/23 9522 H&P: HPI History of Present Illness Date/Time: 03/17/23 21:31 Chief Complaint: Cardiopulmonary arrest Narrative: 78 years old gentleman with history of morbid obesity, chronic respiratory possible obesity ventilation syndrome, was admitted in the hospital on March 11 for acute metabolic encephalopathy, sepsis due to pneumonia, UTI during hospitalization, patient was also found to have dehydration. During hospitalization, patient received vancomycin, cefepime. Blood culture and urine culture was done, no growth of bacteria, patient was switched to Levaquin p.o. but patient has persists leukocytosis. O2 desaturation is improving, currently patient is on 2 L nasal cannular pulse ox about 99. Patient has morbid obesity, has difficulty with ambulation. Patient was advised to be discharged to rehab or home health care. Patient family has concerns of co-pay, and patient declined to be discharged either rehab or home health. Today patient and family requested to be discharged home, although patient and the family was advised to stay in the hospital for continue antibiotics treatment and close monitoring because of persistent leukocytosis. Although patient was feeling better, and patient also denied chest pain, shortness of breath, abdomen pain, nausea vomiting. Patient was afebrile in past few more days, blood pressure was stable. Patient was discharged blood patient and and patient's hospital request. Per nurse report, patient and family declined oxygen bag when patient was transferred to patient's vehicle. Per your report, on getting into her vehicle she went unresponsive. EMS and ED staff helped patient out of the car and she was noted to be in respiratory arrest, and patient also found have PEA. She was brought into the ED where she was started on ACLS protocol. Repeated labs showed worsening leukocytosis. CT of chest shows no PE, but possible pulmonary edema and pneumonia. CT head shows no acute intracranial issues . Patient is transferred to ICU for close monitoring. Review of Systems Review of Systems: Patient is unresponsive, [facility] Past Medical History Medical History (Updated 03/17/23 @ 21:50 by Issa Mccauley MD) Morbid obesity due to excess calories Family History Family History Father Congestive heart failure Sibling Diabetes mellitus Social History Social History Smoking status: Never smoker Alcohol intake: never Substance use: never Substance use type: does not use Lack of Transportation: No Lack of Food: Never True Current Housing: I Have Housing Concerned About Future Housing: No Difficulty Paying Gas/Electric Bills: No Difficulty Paying for Meds: No Currently Unemployed: No Education: High School Diploma/GED Difficulty w/ Childcare or Family Care: No Spiritual care concerns: No Meds Home Medications and Allergies Home Medications Medication Instructions Recorded Confirmed Type atorvastatin 80 mg tablet 80 mg PO HS 03/11/23 03/17/23 History diclofenac sodium 75 mg 75 mg PO BID 03/11/23 03/17/23 History tablet,delayed release escitalopram oxalate 20 mg tablet 20 mg PO DAILY 03/11/23 03/17/23 History folic acid 1 mg tablet 4 mg PO DAILY 03/11/23 03/17/23 History gabapentin 300 mg capsule 300 mg PO BID 03/11/23 03/17/23 History insulin human U-100 NPH-regulr 50 unit subcut BID 03/11/23 03/17/23 History 70-30 mix 100 unit/mL subcutaneous susp (Novolin 70/30 U-100 Insulin)
[2023-03-17 21:36] LABS: Glucose Point of Care 158 mg/dl (65-105)
[2023-03-17 22:48] LABS: Glucose Point of Care 162 mg/dl (65-105)
[2023-03-17 23:16] LABS: Reflex Lactic Acid Yes or No Add Lactic
[2023-03-18] VITALS (63 sets, daily range): BP systolic 78–151; BP diastolic 33–67; PULSE 60–84; RESP 14–30; TEMP 34.6–36.8; O2SAT 87–100; BMI 55.7
[2023-03-18 00:13] LABS: Troponin I 0.692 ng/mL (0.000-0.034)
[2023-03-18 00:14] LABS: Lactic Acid 6.3 mmol/L (0.7-2.0)
[2023-03-18] MEDS: CEFEPIME 2 GM/NS 50 ML 2 GM/50 ML BAG IVPB ×2 (00:27→11:50)
[2023-03-18] MEDS: metroNIDAZOLE 500 MG/ISO 100ML 500 MG/100 ML BAG 100 MG IVPB ×4 (00:28→21:39)
[2023-03-18 00:57] LABS: Glucose Point of Care 183 mg/dl (65-105)
[2023-03-18] MEDS: VANCOMYCIN 1,250 MG/NS 250 ML 1,250 MG/250 ML BAG 166.67 MG IVPB ×2 (01:17→02:30)
[2023-03-18] MEDS: EPINEPHrine INJ 4 MG in DEXTROSE 5% IN WATER 250 ML 38.1 MG IV CONT ×4 (02:17→23:00)
[2023-03-18 02:22] LABS: Glucose Point of Care 217 mg/dl (65-105)
--- NOTE | 2023-03-18 03:15 | ECG_ITS ---
Measurements Intervals [place] Rate: 76 P: 35 KS: 166 QRS: 24 QRSD: 114 T: -1 QT: 421 QTc: 473 Interpretive Statements SINUS RHYTHM VENTRICULAR PREMATURE COMPLEX INTRAVENTRICULAR CONDUCTION DELAY CONSIDER INFERIOR INFARCT, AGE INDETERMINATE ABNORMAL ECG COMPARED TO ECG 03/17/2023 15:03:03 INTRAVENTRICULAR CONDUCTION DELAY NOW PRESENT Electronically Signed On 03-18-2023 16:29:08 CDT by Clayton Madrid D.O.
[2023-03-18 04:35] LABS: Glucose Point of Care 207 mg/dl (65-105)
[2023-03-18 04:50] LABS: Alveolar/Arterial O2 Gradient 224.8 mmHg; Base Excess ABG -15.2 mEq/l (+/-2.0); Carboxyhemoglobin 0.3 % THb (0-2.0); Fractional Inspired Oxygen 70 %; HCO3 ABG 14.2 mEq/l (22.0-26.0); Methemoglobin ABG 0.4 %THb (0-1.5); Oxygen Content ABG 15.5 %vol (16.0-22.0); Oxygen Saturation ABG 99.1 % (95.0-100.0); Oxyhemoglobin 97.9 % THb (90.0-100.0); PCO2 ABG 48.3 mmHg (35.0-45.0); PO2 ABG 222.4 mmHg (80.0-100.0); PO2 FiO2 Ratio Arterial Blood 3.18 %; Reduced Hemoglobin 1.4 %THb (0-5.0); Total Hemoglobin 10.9 g/dL (12.0-18.0)
[2023-03-18 05:00] LABS: Arterial Blood Gas PEEP 8 cmH2O; Arterial Blood Gas Vent Mode CMV; Arterial Blood Gas Ventilator rate 20 /MIN; Device VENTILATOR; Modified Allen's Test Pass; Site Drawn LEFT RADIAL; pH ABG 7.086 (7.350-7.450)
[2023-03-18 05:01] LABS: Arterial Blood Gas Tidal Volume 460 ml
[2023-03-18 05:28] LABS: Basophils Absolute Auto 0.2 K/mm3 (0.0-0.1); Basophils Percent Auto 0.4 % (0.2-1.2); Hematocrit 35.6 % (37.0-47.0); Hemoglobin 9.8 g/dL (12.0-15.0); Immature Granulocyte Absolute 0.33 K/mm3 (0.00-0.031); Lymphocytes Percent Auto 4.1 % (18.3-44.2); Mean Corpuscular HGB Conc 27.5 g/dl (32-36); Mean Corpuscular Hemoglobin 25.3 pg (26-34); Mean Corpuscular Volume 91.8 fl (80-100); Mean Platelet Volume 10.1 fl (7.4-10.4); Monocytes Absolute Auto 2.4 K/mm3 (0.1-0.6); Monocytes Percent Auto 6.9 % (2.6-8.5); Neutrophils Percent Auto 87.6 % (45.5-73.1); Nucleated Red Blood Cells Absolute Auto 0.1 K/mm3 (0.0-0.012); Nucleated Red Blood Cells Perc 0.2 % (0.0-0.2); Platelet Count Result 297 k/mm3 (150-375); Red Blood Count 3.88 M/mm3 (4.2-5.4); Red Cell Distribution Width 17.4 % (11.5-14.5); White Blood Count 34.2 K/mm3 (4.5-10.0)
[2023-03-18 05:39] LABS: Alkaline Phosphatase 117 U/L (38-126); Anion Gap 15 mmol/L (8-16); Aspartate Amino Transferase 96 U/L (14-36); Bilirubin,Total 0.6 mg/dL (0.2-1.3); Blood Urea Nitrogen 62 mg/dL (7-17); Calcium 7.9 mg/dL (8.4-10.2); Carbon Dioxide 15 mmol/L (22-30); Chloride 108 mmol/L (98-107); Estimated CRCL calculation 26 ml/min; Estimated Glomerular Filt Rate 20; Glucose 263 mg/dL (65-110); INR 1.4; Magnesium 1.9 mg/dL (1.6-2.3); Prothrombin Time 17.4 Seconds (11.1-14.7); Sodium 138 mmol/L (137-145)
[2023-03-18 05:40] LABS: Lactic Acid Reflex 7.4 mmol/L (0.7-2.0)
[2023-03-18 05:46] LABS: NT Pro B Type Natriuretic Pept 21000 pg/mL (19.9-100)
[2023-03-18 05:47] LABS: Alanine Aminotransferase 72 U/L (6-35)
[2023-03-18 05:52] LABS: Anisocytosis 1+ (NORMAL); Burr Cells 1+ (NORMAL); Platelet Estimate Adequate (Adequate); Polychromasia 1+ (NORMAL); Schistocytes Rare (NORMAL)
[2023-03-18 06:45] LABS: Glucose Point of Care 229 mg/dl (65-105)
[2023-03-18] MEDS: INSULIN ASPART (*BKC) 100 UNITS/ML SUB-Q ×5 (06:52→20:31)
[2023-03-18] MEDS: SODIUM BICARBONATE 8.4% 50 MEQ/50 ML SYRINGE 100 MEQ IV PUSH ×2 (06:53→16:43)
[2023-03-18] MEDS: SODIUM BICARBONATE TAB 650 MG TABLET FEED TUBE ×2 (08:51→16:44)
[2023-03-18] MEDS: ASPIRIN 325 MG TABLET PO (08:51)
[2023-03-18] MEDS: MINERAL OIL/WHITE PETROLATUM OINTMENT 1 APPLIC EACH EYE ×2 (08:51→20:31)
[2023-03-18] MEDS: PANTOPRAZOLE SODIUM IV 40 MG VIAL IV PUSH (08:51)
[2023-03-18] MEDS: ENOXAPARIN 40 MG/0.4 ML SYRINGE SUB-Q (08:52)
[2023-03-18] MEDS: FUROSEMIDE INJ 100 MG/10 ML VIAL (09:02)
[2023-03-18] MEDS: ROCURONIUM BROMIDE 50 MG/5 ML VIAL (09:02)
[2023-03-18 09:09] LABS: Glucose Point of Care 283 mg/dl (65-105)
--- NOTE | 2023-03-18 09:11 | WPDCNINT ---
Assessment and Plan Assessment and plan (1) Acute anoxic encephalopathy: Code(s): G93.1 - Anoxic brain damage, not elsewhere classified Status: Acute Assessment and Plan: Patient was completely obtunded after ROSC and then exhibited significant jerky movements of her face and extremities history of anoxic brain injury She has a PEA arrest in the field and was started on moderate TTM protocol with goal body temperature less than 36? which will be continued today Head CT on presentation was negative and will be repeated tomorrow Keppra has been started empirically She is currently sedated with Versed and fentanyl (2) Acute respiratory failure with hypoxemia: Code(s): J96.01 - Acute respiratory failure with hypoxia Status: Acute Assessment and Plan: Acute respiratory failure secondary to pulmonary edema cardiac arrest Patient asynchronous with the ventilator and was given a dose of rocuronium this morning Continue current vent settings. I have increased the PEEP to 10. Will wean FiO2 Chest x-ray reviewed and will withdraw ET tube to 23 cm Lasix 80 mg IV x1 She is on empiric antibiotics to cover for aspiration pneumonia (3) Cardiac arrest: Code(s): I46.9 - Cardiac arrest, cause unspecified Status: Acute Assessment and Plan: Unclear year etiology although possible etiologies would be hypoxia syncope arrhythmia CTA was negative for PE Continue telemetry monitoring EKG did not show any ST elevation Troponin mildly elevated but which could be secondary to cardiac arrest Continue aspirin Not on statin due to elevated liver enzymes Patient has clinical signs of congestive heart failure. echocardiogram ordered and pending Consult cardiology (4) Pulmonary edema: Code(s): J81.1 - Chronic pulmonary edema Status: Acute Assessment and Plan: See above (5) Acute UTI: Code(s): N39.0 - Urinary tract infection, site not specified Status: Acute Assessment and Plan: Her urine culture negative She is currently on broad-spectrum antibiotics as above (6) Candidal skin infection: Code(s): B37.2 - Candidiasis of skin and nail Status: Acute Assessment and Plan: tolnaftate powder ordered (7) Sepsis: Qualifiers: Sepsis acute organ dysfunction status: without acute organ dysfunction Sepsis type: sepsis due to unspecified organism Qualified Code(s): A41.9 - Sepsis, unspecified organism Code(s): A41.9 - Sepsis, unspecified organism Status: Acute Assessment and Plan: Patient was discharged yesterday after treatment of UTI. On presentation she did meet criteria for sepsis although elevated WBC and lactic acid could be secondary to cardiac arrest. Her procalcitonin level was intermediate she was started on broad-spectrum antibiotics including vancomycin cefepime and Flagyl which will be continued for now. Repeat blood and urine cultures have been sent. Will also add sputum culture (8) Shock: Code(s): R57.9 - Shock, unspecified Status: Acute Assessment and Plan: Multifactorial shock secondary to sepsis, cardiac arrest/cardiogenic and sedation Continue epinephrine infusion. Add Levophed Add hydrocortisone (9) Elevated troponin: Code(s): R77.8 - Other specified abnormalities of plasma proteins Status: Acute Assessment and Plan: See above (10) Diabetes mellitus: Code(s): E11.9 - Type 2 diabetes mellitus without complications Status: Acute Assessment and Plan: Change sliding scale to high and every 4 hours Add Lantus NPO at this time Plan DVT prophylaxis -Lovenox Stress ulcer prophylaxis -Protonix Nutrition - NPO Code Status -I had long discussion with patient's and daughter at bedside and updated them with patient's current status including cardiac arrest, congestive heart failure, pulmonary edema, respiratory failure, acute kidney injury and
[2023-03-18] MEDS: INSULIN GLARGINE (*BKC) 100 UNITS/ML 15 UNITS SUB-Q ×2 (09:12→20:32)
[2023-03-18] MEDS: NOREPINEPHRINE 8 MG/D5W 250 ML 8 MG/250 ML BAG 9.38 MG IV CONT (09:52)
[2023-03-18] MEDS: ATROPINE SULFATE 1 MG/10 ML SYRINGE (10:10)
[2023-03-18] MEDS: levETIRAcetam 500MG/NACL 100ML 500 MG/100 ML BAG 400 MG IVPB ×2 (10:17→20:31)
--- NOTE | 2023-03-18 11:04 | PM.CNCAR ---
Assessment and Plan Assessment and plan (1) Shock: Code(s): R57.9 - Shock, unspecified Status: Acute (2) Anoxic brain injury: Code(s): G93.1 - Anoxic brain damage, not elsewhere classified Status: Acute (3) Cardiac arrest: Code(s): I46.9 - Cardiac arrest, cause unspecified Status: Acute Plan 78-year-old woman who had PE a arrest apparently in the parking lot as she was being discharged from the hospital for treatment of a significant urinary tract infection. The etiology of this arrest is unclear at this time most likely it is related to hypoxemia as she was apparently off of her oxygen and she requires this for ongoing maintenance of oxygen saturation. Most likely underlying pathology would be RV dysfunction because of obesity hypoventilation. Troponin levels are still somewhat elevated however this is certainly not unexpected given her presentation, cardiac arrest and severe acidosis. Her ECG demonstrates a new right bundle branch block however no changes indicative of acute ST-elevation CO. at this point supportive care needs to be recommended which is being provided to her by the wader boot top assembler. There is concern of course regarding the possibility of significant anoxic brain injury and we will follow along with you and provide supportive care. If the patient recovers from this and is extubated and has reasonable neurological function then further workup of her cardiovascular status would be indicated/appropriate. It would be helpful to see some of the records from [facility]/[place] that might she had some light on to the cardiovascular evaluation that might have been done at that institution. Ramu Valderrama MD [facility] History of Present Illness History of Present Illness Consult date/time: 03/18/23 11:04 Reason For Visit: Cardiac arrest Narrative: This is a 78-year-old woman I am seeing at the request of the hospitalist and wader boot top assembler this morning following readmission to the hospital yesterday with cardiac arrest. Patient is unknown to me prior to this encounter. She is currently on capable of providing history of she is intubated and on hypothermia protocol in the ICU. The patient is a morbidly obese woman with a history of non insulin-dependent diabetes who was hospitalized here recently just last week with a urinary tract infection. Interestingly that review that chart indicates she had an episode of either loss of consciousness or becoming very poorly responsive in the automobile on the way to the hospital. She was felt to have severe urinary tract infection was treated with intravenous antibiotics and then discharged yesterday earlier in the day on p.o. Levaquin. Apparently she has a history of oxygen dependency presumably because of obesity hypoventilation and was transferred from her wheelchair at the time of discharge to their private vehicle. The hospital records indicate that the hospitalists recommended ongoing care in the hospital as the white count was still elevated in the urinary tract infection was felt to not be completely treated. They however were insistent upon being discharged. While the patient was still in the automobile before they left the parking lot she became unresponsive. The called 911 and paramedics responded immediately and brought her into the emergency room. Apparently she was in a state of pulseless electrical activity. I do not have any electrocardiograms and rhythm strips to review personally at that time. She underwent ACLS protocol with resuscitation efforts. The chart indicates because of her 0 body habitus she was a difficult intubation. She had spontaneous circulation restored and was admitted to the ICU. She was markedly acidemic with lactic acid level of 7.4 and the labs also show evidence of acute kidney injury with a BUN in the 60s and a creatinine of 2.4. In this setting we are seeing her in consultation. The patient's and daughter
[2023-03-18] MEDS: SODIUM BICARBONATE 8.4% 50 MEQ/50 ML SYRINGE IV PUSH ×2 (11:11→19:40)
--- NOTE | 2023-03-18 11:34 | PCDIET ---
Tube feedings recommendations: Vital AF 1.2 at 20 ml/hr advance by 10 ml q 4 hours goal rate of 50 ml/hr. Recommend goal rate at 50 ml/hr at 70% of needs providing 1320 kcals/82 gms protein. Will need Prosource BID for additional protein needs. Following.
[2023-03-18 11:47] LABS: Glucose Point of Care 268 mg/dl (65-105)
[2023-03-18 12:20] LABS: Creatine Kinase 598 U/L (30-135)
[2023-03-18 12:32] LABS: Troponin I 0.485 ng/mL (0.000-0.034)
[2023-03-18] MEDS: HYDROCORTISONE SODIUM SUCCINATE 100 MG/2 ML VIAL IV PUSH ×2 (13:48→21:39)
[2023-03-18] MEDS: ALBUMIN HUMAN 25% 25 GM/100 ML 100 ML IVPB ×2 (15:38→22:41)
[2023-03-18 15:42] LABS: Anion Gap 12 mmol/L (8-16); Blood Urea Nitrogen 65 mg/dL (7-17); Calcium 7.8 mg/dL (8.4-10.2); Carbon Dioxide 22 mmol/L (22-30); Chloride 105 mmol/L (98-107); Estimated CRCL calculation 23 ml/min; Estimated Glomerular Filt Rate 16; Glucose 322 mg/dL (65-110); Magnesium 1.9 mg/dL (1.6-2.3); Potassium 5.3 mmol/L (3.4-5.0); Sodium 139 mmol/L (137-145)
[2023-03-18 15:55] LABS: Alveolar/Arterial O2 Gradient 378.8 mmHg; Base Excess ABG -13.1 mEq/l (+/-2.0); Fractional Inspired Oxygen 70 %; HCO3 ABG 17.2 mEq/l (22.0-26.0); Oxygen Content ABG 13.5 %vol (16.0-22.0); PO2 ABG 63.5 mmHg (80.0-100.0); PO2 FiO2 Ratio Arterial Blood 0.91 %
[2023-03-18 16:00] LABS: pH ABG 7.067 (7.350-7.450)
[2023-03-18 16:03] LABS: Oxygen Saturation ABG 81.7 % (95.0-100.0)
[2023-03-18 16:05] LABS: Device VENTILATOR; Modified Allen's Test Pass; Oxyhemoglobin 87.2 % THb (90.0-100.0); Site Drawn LEFT RADIAL
[2023-03-18 16:06] LABS: Arterial Blood Gas Ventilator rate 24 /MIN
[2023-03-18 16:07] LABS: Arterial Blood Gas PEEP 10 cmH2O; Arterial Blood Gas Pressure Support 0 cmH2O; Arterial Blood Gas Tidal Volume 400 ml; Arterial Blood Gas Vent Mode CMV
--- NOTE | 2023-03-18 16:31 | PM.IMPN ---
Progress Note: A&P Assessment and Plan (1) Diabetes mellitus: Code(s): E11.9 - Type 2 diabetes mellitus without complications Status: Acute (2) Elevated troponin: Code(s): R77.8 - Other specified abnormalities of plasma proteins Status: Acute (3) Shock: Code(s): R57.9 - Shock, unspecified Status: Acute (4) Anoxic brain injury: Code(s): G93.1 - Anoxic brain damage, not elsewhere classified Status: Acute (5) Acute anoxic encephalopathy: Code(s): G93.1 - Anoxic brain damage, not elsewhere classified Status: Acute (6) Acute respiratory failure with hypoxemia: Code(s): J96.01 - Acute respiratory failure with hypoxia Status: Acute (7) Morbid obesity: Code(s): E66.01 - Morbid (severe) obesity due to excess calories Status: Acute Plan # PEA cardiac arrest # septic shock -likely secondary to hypoxia -vasopressors: Levophed, epinephrine. on hydrocortisone 100 mg q.8 hours -sedation: Fentanyl, Versed -IMV: vent management as per porcelain buildup assistant -appreciate porcelain buildup assistant consult and management -ABx: Cefepime, Flagyl, vancomycin -ABG pH 7.067/61/63/17 -elevated troponin after CPR, trop 0.485 -on Keppra 5 mg q.12 hours -start on bicarb drip for pH 7.06 # congestive heart failure exacerbation -patient given dose of Lasix. Will monitor carefully as patient is on vasopressors -cardiology consulted -echocardiogram ordered -BNP 08122 -with acute decompensation she may need coronary evaluation after stabilizing -started on aspirin 325 mg daily # insulin-dependent type 2 diabetes -glargine 15 units q.h.s., sliding scale insulin Diet: NPO DVT prophylaxis: Lovenox GI prophylaxis: IV Protonix Code status: Full code Disposition: Continue monitor in ICU couple reassess goals of care after weekend Subjective Date/time seen: 03/18/23 16:31 Interval history: Patient seen examined. She is intubated sedated. Discussed case with porcelain buildup assistant with plan for monitoring over the weekend and then reassess goals of care. Patient is on high levels of ventilator support. Weaning epi gtt. She may have some anoxic brain injury after her PEA arrest. Diuresis today with lasix. Review of Systems Review of Systems: Unable to obtain patient intubated Exam Narrative: - GENERAL: Intubated sedated - EYES: Anicteric. - HENT: ETT in place - LUNGS: synchronous, coarse lung sounds - CARDIOVASCULAR: Regular rate and rhythm. No murmur. - ABDOMEN: Soft, non-tender and non-distended. No palpable masses. - : june - EXTREMITIES: 3+ pitting edema - NEUROLOGIC: Patient is sedated - SKIN: Various age wounds, stasis dermatitis Objective Data Vital Signs Vital Signs: Vital Signs - 24 hr 03/17/23 16:48 03/17/23 17:34 03/17/23 18:01 Temperature 36.4 C Pulse Rate 63 84 94 Respiratory Rate 18 18 18 Blood Pressure 105/56 L 140/62 Pulse Oximetry 94 100 Oxygen Delivery Fraction of Inspired Oxygen 03/17/23 18:12 03/17/23 18:36 03/17/23 18:30 Temperature 36.6 C Pulse Rate 106 H 76 Respiratory Rate 20 Blood Pressure 128/78 137/61 Pulse Oximetry 94 93 Oxygen Delivery Mechanical Ventilation Fraction of Inspired Oxygen 100 03/17/23 19:54 03/17/23 19:58 03/17/23 20:11 Temperature 35.9 C L Pulse Rate 64 65 63 Respiratory Rate 20 17 Blood Pressure 147/88 H 147/88 H Pulse Oximetry 100 Oxygen Delivery Fraction of Inspired Oxygen 03/17/23 20:00 03/17/23 20:00 03/17/23 20:00 Temperature 35.9 C L Pulse Rate 63 64 64 Respiratory Rate 24 H Blood Pressure 150/55 H Pulse Oximetry 100 98 Oxygen Delivery Mechanical Ventilation Fraction of Inspired Oxygen 80 03/17/23 21:00 03/17/23 21:20 03/17/23 21:00 Temperature 36.0 C L 35.9 C L Pulse Rate 65 68 Respiratory Rate 20 20 Blood Pressure 142/56 H 127/60 Pulse Oximetry 99 99 Oxygen Delivery Fraction of Inspired Oxygen 80
[2023-03-18] MEDS: SODIUM ZIRCONIUM CYCLOSILICATE 10 GM POWD.PACK PO (16:44)
[2023-03-18 17:05] LABS: Glucose Point of Care 316 mg/dl (65-105)
[2023-03-18] MEDS: MIDAZOLAM 100MG/NS 100ML(*CRX) 100 MG/100 ML BAG 6 MG IV CONT (17:06)
[2023-03-18] MEDS: SODIUM BICARBONATE 8.4% 150 MEQ in WATER, STERILE FOR INJECTION 950 ML 50 MEQ IV CONT (18:03)
[2023-03-18] MEDS: CENTRAL LINE FLUSH 10 ML IV PUSH ×3 (18:04→22:07)
[2023-03-18 18:37] LABS: Alveolar/Arterial O2 Gradient 567.2 mmHg; Base Excess ABG -7.6 mEq/l (+/-2.0); Fractional Inspired Oxygen 100 %; HCO3 ABG 21.9 mEq/l (22.0-26.0); Oxygen Content ABG 14.9 %vol (16.0-22.0); Oxygen Saturation ABG 93.9 % (95.0-100.0); Oxyhemoglobin 94.8 % THb (90.0-100.0); PO2 ABG 90.3 mmHg (80.0-100.0); Total Hemoglobin 11.1 g/dL (12.0-18.0)
[2023-03-18 18:40] LABS: PCO2 ABG 66.4 mmHg (35.0-45.0); pH ABG 7.137 (7.350-7.450)
[2023-03-18 18:41] LABS: Device VENTILATOR; Modified Allen's Test Pass; Site Drawn RIGHT RADIAL
[2023-03-18 18:42] LABS: Arterial Blood Gas Ventilator rate 28 /MIN
[2023-03-18 18:43] LABS: Arterial Blood Gas PEEP 10 cmH2O; Arterial Blood Gas Pressure Support 0 cmH2O; Arterial Blood Gas Tidal Volume 400 ml; Arterial Blood Gas Vent Mode CMV
[2023-03-18 20:16] LABS: Glucose Point of Care 317 mg/dl (65-105)
[2023-03-18] MEDS: TOLNAFTATE 1% POWDER 45 GM BTL 1 APPLIC TOPICAL (20:31)
[2023-03-18] MEDS: NOREPINEPHRINE 8 MG/D5W 250 ML 8 MG/250 ML BAG 20.63 MG IV CONT (20:50)
[2023-03-18 22:13] LABS: Glucose Point of Care 335 mg/dl (65-105)
[2023-03-18] MEDS: FENTANYL 2,500MCG/NS250ML(*CRX 2,500 MCG/250 ML BAG 10 MCG IV CONT (23:32)
[2023-03-19] VITALS (44 sets, daily range): BP systolic 87–151; BP diastolic 34–66; PULSE 63–99; RESP 24–97; TEMP 36.2–37.6; O2SAT 30–100
--- NOTE | 2023-03-19 | ECHO_ITS ---
Patient Info Name: Jaida Hadley Age: 78 years : 1945 Gender: Female Ht: 64 in Wt: 324 lbs BSA: 2.67 m2 HR: 79 bpm BP: 95 / 49 mmHg Heart Rhythm: Sinus Rhythm Technical Quality: Poor Exam Date: 03/19/2023 9:55 AM Exam Location: [facility] Pulmonary Patient Status: Inpatient Admit Date: 03/17/2023 Staff Ordering Physician: Shawn Ragland MD Locomotive Driver: Mc Fuller RDCS Attending Provider: Mir Moffett DO Exam Type: CA echo dop color flow w con Study Info Indications - cardiac arrest Complete two-dimensional, color flow and Doppler transthoracic echocardiogram is performed with contrast to opacify the left ventricle and to improve the deliniation of the left ventricle endocardial borders. Contrast/Agitated Saline Contrast/Ag. Saline: Definity Amount: 3.00 ml Reason for Poor Study: poor echocardiographic windows Summary 1. Technically difficult image quality, definity contrast used to improve exam quality. 2. Normal left ventricular size with hyperdynamic appearing systolic function. 3. Right ventricular enlargement with significant RV systolic dysfunction. 4. Dilated right atrium. 5. Small amount of tricuspid insufficiency, velocity analysis suggests severely elevated RV systolic pressure. 6. Mildly sclerotic aortic valve which is not stenotic. Left Ventricle Left ventricular chamber dimension is normal. Left ventricular systolic function is hyperdynamic, estimated at >70%. The left ventricular diastolic function is indeterminate. Right Ventricle Right ventricular chamber dimension is moderately enlarged. Right ventricular systolic function is reduced. Linear artifact in right ventricle suggestive of catheter(s), pacemaker lead(s), or ICD lead(s). Left Atria Left atrial chamber dimension is normal. Right Atria Right atrial chamber dimension is moderately enlarged. Aortic Valve The aortic valve is trileaflet. There is mild aortic valve sclerosis. Pulmonic Valve The pulmonic valve is not well visualized. Mitral Valve The mitral valve has normal leaflets. Tricuspid Valve The tricuspid valve leaflets are not well visualized. There is mild tricuspid valve regurgitation. Severe pulmonary hypertension, estimated pulmonary arterial systolic pressure is 71 mmHg. Pericardium/Pleural The pericardium appears normal. Aorta The aortic root size at the sinus of Valsalva is normal. Left Ventricular Outflow Tract Name Value Normal LVOT 2D LVOT Diameter 2.09 cm LVOT Doppler LVOT Peak Gradient 4 mmHg LVOT Mean Gradient 3 mmHg LVOT VTI 20.25 cm LVOT VTI/AV VTI Ratio 0.59 LVOT Stroke Volume 69.61 ml LVOT CO 6.12 l/min LVOT CI 2.29 L/min/m2 Pulmonic Valve Name Value Normal RVOT Doppler
[2023-03-19] MEDS: CEFEPIME 2 GM/NS 50 ML 2 GM/50 ML BAG IVPB ×4 (00:10→23:20)
[2023-03-19] MEDS: INSULIN ASPART (*BKC) 100 UNITS/ML SUB-Q ×6 (00:10→20:29)
[2023-03-19 00:17] LABS: Glucose Point of Care 345 mg/dl (65-105)
[2023-03-19 04:24] LABS: Glucose Point of Care 332 mg/dl (65-105)
[2023-03-19 05:28] LABS: Hemoglobin 8.8 g/dL (12.0-15.0); Mean Corpuscular HGB Conc 29.3 g/dl (32-36); Mean Corpuscular Hemoglobin 25.2 pg (26-34); Mean Platelet Volume 9.2 fl (7.4-10.4); Platelet Count Result 233 k/mm3 (150-375); Red Blood Count 3.49 M/mm3 (4.2-5.4); Red Cell Distribution Width 17.5 % (11.5-14.5); White Blood Count 28.6 K/mm3 (4.5-10.0)
[2023-03-19 05:36] LABS: Alveolar/Arterial O2 Gradient 498.6 mmHg; Base Excess ABG -5.7 mEq/l (+/-2.0); Carboxyhemoglobin 0.3 % THb (0-2.0); Fractional Inspired Oxygen 90 %; HCO3 ABG 23.8 mEq/l (22.0-26.0); Methemoglobin ABG 0.4 %THb (0-1.5); Oxygen Content ABG 13.1 %vol (16.0-22.0); Oxygen Saturation ABG 88.8 % (95.0-100.0); Oxyhemoglobin 89.6 % THb (90.0-100.0); PO2 ABG 71.6 mmHg (80.0-100.0); Reduced Hemoglobin 9.7 %THb (0-5.0); Total Hemoglobin 10.3 g/dL (12.0-18.0)
[2023-03-19] MEDS: CENTRAL LINE FLUSH 10 ML IV PUSH ×3 (05:37→21:31)
[2023-03-19] MEDS: HYDROCORTISONE SODIUM SUCCINATE 100 MG/2 ML VIAL IV PUSH ×3 (05:37→21:31)
[2023-03-19 05:39] LABS: Alanine Aminotransferase 49 U/L (6-35); Albumin Level 3.5 g/dL (3.5-5.1); Alkaline Phosphatase 103 U/L (38-126); Anion Gap 8 mmol/L (8-16); Aspartate Amino Transferase 67 U/L (14-36); Bilirubin,Total 0.7 mg/dL (0.2-1.3); Blood Urea Nitrogen 73 mg/dL (7-17); Calcium 7.6 mg/dL (8.4-10.2); Carbon Dioxide 26 mmol/L (22-30); Chloride 102 mmol/L (98-107); Estimated CRCL calculation 21 ml/min; Estimated Glomerular Filt Rate 15; Glucose 313 mg/dL (65-110); Magnesium 1.9 mg/dL (1.6-2.3); Phosphorus 6.4 mg/dL (2.5-4.5); Potassium 4.6 mmol/L (3.4-5.0); Sodium 136 mmol/L (137-145)
[2023-03-19 05:40] LABS: Device VENTILATOR; Modified Allen's Test Pass; PCO2 ABG 69.8 mmHg (35.0-45.0); Site Drawn RIGHT RADIAL
[2023-03-19 05:41] LABS: Arterial Blood Gas PEEP 10 cmH2O; Arterial Blood Gas Tidal Volume 400 ml; Arterial Blood Gas Vent Mode CMV; Arterial Blood Gas Ventilator rate 30 /MIN
[2023-03-19] MEDS: metroNIDAZOLE 500 MG/ISO 100ML 500 MG/100 ML BAG 100 MG IVPB ×3 (05:48→21:31)
[2023-03-19] MEDS: EPINEPHrine INJ 4 MG in DEXTROSE 5% IN WATER 250 ML 38.1 MG IV CONT (05:58)
[2023-03-19] MEDS: SODIUM BICARBONATE 8.4% 50 MEQ/50 ML SYRINGE 100 MEQ IV PUSH (06:19)
[2023-03-19] MEDS: FUROSEMIDE INJ 100 MG/10 ML VIAL 80 MG IV PUSH (08:34)
[2023-03-19] MEDS: PANTOPRAZOLE SODIUM IV 40 MG VIAL IV PUSH (08:35)
[2023-03-19] MEDS: ASPIRIN 325 MG TABLET PO (08:35)
[2023-03-19] MEDS: ENOXAPARIN 40 MG/0.4 ML SYRINGE SUB-Q (08:35)
[2023-03-19] MEDS: SODIUM BICARBONATE TAB 650 MG TABLET FEED TUBE ×2 (08:35→17:05)
[2023-03-19] MEDS: levETIRAcetam 500MG/NACL 100ML 500 MG/100 ML BAG 200 MG IVPB (08:35)
[2023-03-19] MEDS: INSULIN GLARGINE (*BKC) 100 UNITS/ML 50 UNITS SUB-Q (08:36)
[2023-03-19] MEDS: MINERAL OIL/WHITE PETROLATUM OINTMENT 1 APPLIC EACH EYE ×2 (08:37→20:04)
[2023-03-19] MEDS: TOLNAFTATE 1% POWDER 45 GM BTL 1 APPLIC TOPICAL ×2 (08:38→20:04)
[2023-03-19 08:55] LABS: Glucose Point of Care 320 mg/dl (65-105)
--- NOTE | 2023-03-19 09:18 | WPDINTPN ---
Progress Note: A&P Assessment and Plan (1) Acute anoxic encephalopathy: Code(s): G93.1 - Anoxic brain damage, not elsewhere classified Status: Acute Assessment and Plan: Patient was completely obtunded after ROSC and then exhibited significant jerky movements of her face and extremities history of anoxic brain injury She has a PEA arrest in the field and was started on moderate TTM protocol with goal body temperature less than 36? Patient completed 24 hours of protocol and was rewarming overnight I have now discontinue sedation and will monitor neuro exam Head CT on presentation was negative and will be repeat pending on neuro improvement Keppra has been started empirically and will be continue (2) Acute respiratory failure with hypoxemia: Code(s): J96.01 - Acute respiratory failure with hypoxia Status: Acute Assessment and Plan: Acute respiratory failure secondary to pulmonary edema cardiac arrest Patient asynchronous with the ventilator and was given a dose of rocuronium this morning Continue current vent settings. I have increased the PEEP to 14. FiO2 at 90% Permissive hypercapnia has pressures are high on the ventilator Chest x-ray reviewed and shows diffuse bilateral infiltrate Lasix 80 mg IV x1 again today She is on empiric antibiotics to cover for aspiration pneumonia and healthcare associated pneumonia (3) Cardiac arrest: Code(s): I46.9 - Cardiac arrest, cause unspecified Status: Acute Assessment and Plan: Unclear year etiology although possible etiologies would be hypoxemia syncope or arrhythmia CTA was negative for PE Continue telemetry monitoring EKG did not show any ST elevation Troponin mildly elevated but likely secondary to cardiac arrest Continue aspirin Not on statin due to elevated liver enzymes Patient has clinical signs of congestive heart failure. echocardiogram ordered and pending Cardiology following (4) Pulmonary edema: Code(s): J81.1 - Chronic pulmonary edema Status: Acute Assessment and Plan: See above (5) Acute UTI: Code(s): N39.0 - Urinary tract infection, site not specified Status: Acute Assessment and Plan: Her urine culture negative She is currently on broad-spectrum antibiotics as above (6) Candidal skin infection: Code(s): B37.2 - Candidiasis of skin and nail Status: Acute Assessment and Plan: tolnaftate powder ordered (7) Sepsis: Qualifiers: Sepsis acute organ dysfunction status: without acute organ dysfunction Sepsis type: sepsis due to unspecified organism Qualified Code(s): A41.9 - Sepsis, unspecified organism Code(s): A41.9 - Sepsis, unspecified organism Status: Acute Assessment and Plan: Patient was discharged yesterday after treatment of UTI. On presentation she did meet criteria for sepsis although elevated WBC and lactic acid could be secondary to cardiac arrest. Her procalcitonin level was intermediate she was started on broad-spectrum antibiotics including vancomycin cefepime and Flagyl which will be continued for now. Repeat blood and urine cultures have been sent. sputum culture ordered (8) Shock: Code(s): R57.9 - Shock, unspecified Status: Acute Assessment and Plan: Multifactorial shock secondary to sepsis, cardiac arrest/cardiogenic and sedation Continue epinephrine and Levophed Continue hydrocortisone (9) Elevated troponin: Code(s): R77.8 - Other specified abnormalities of plasma proteins Status: Acute Assessment and Plan: See above (10) Diabetes mellitus: Code(s): E11.9 - Type 2 diabetes mellitus without complications Status: Acute Assessment and Plan: Continue sliding scale to high and every 4 hours Increase Lantus Start tube feeds (11) Acute renal failure: Code(s): N17.9 - Acute kidney failure, unspecified Status: Acute Assessment and Plan:
[2023-03-19] MEDS: SODIUM CHLORIDE 0.9% IV 500 ML IV CONT (09:54)
[2023-03-19] MEDS: PERFLUTREN LIPID MICROSPHERES 1.5 ML VIAL DILUTED TO 10 ML TOTAL VOLUME IV PUSH (10:15)
--- NOTE | 2023-03-19 11:01 | PM.PNCARD ---
Progress Note: A&P Assessment and Plan (1) Cardiac arrest: Code(s): I46.9 - Cardiac arrest, cause unspecified Status: Acute Plan 78-year-old lady with PE a arrest immediately after discharge from UTI/urosepsis. Etiology of this is not entirely clear. Pulmonary embolism was ruled out with negative CTA. He remains on the ventilator has completed hypothermia protocol and neurological prognosis seems poor. Patient has significant acute kidney injury. Echocardiogram performed this morning results of that are pending. Do not expect this to be a high quality exam given her massive obesity. Conservative supportive care is to be continued at this time. Prognosis is very poor in my opinion Ramu Valderrama MD [facility] Subjective Date/time seen: Date of service: 03/19/23 11:01 Interval history: Follow-up visit in this 78-year-old patient with: PE a arrest presumably occurring in the parking lot just after discharge with significant urinary sepsis. Etiology of this is not clear. She is intubated sedated in the ICU. Completed hypothermia protocol last evening. Review of Systems Review of Systems: ROS unobtainable: Yes unobtainable due to endotracheal tube and unobtainable due to mental status Exam Const: Other: Massively obese white female intubated on ventilator support HENMT: Mouth: Yes moist mucous membranes Eyes: Sclera: sclerae normal Neck: Neck: supple Resp: Other: Coarse rhonchi noted centrally Cardio: Rate: regular rate Rhythm: regular rhythm Other: PMI not palpable given her size no murmur no gallop GI: GI Palp: Yes Soft to palpation Auscultation: normal bowel sounds Skin: General skin exam: normal color Extrem: Other: Adequate perfusion Objective Data Vital Signs Vital Signs: Vital Signs - 24 hr 03/18/23 11:03/18/23 12:00 03/18/23 12:06 Temperature Pulse Rate 80 80 80 Respiratory Rate 24 H Blood Pressure 94/50 L Pulse Oximetry 98 Oxygen Delivery Mechanical Ventilation Fraction of Inspired Oxygen 60 03/18/23 12:00 03/18/23 12:00 03/18/23 12:00 Temperature 36.3 C L Pulse Rate 80 80 80 Respiratory Rate 25 H 25 H Blood Pressure 94/50 L Pulse Oximetry 99 99 Oxygen Delivery Mechanical Ventilation Fraction of Inspired Oxygen 60 03/18/23 12:00 03/18/23 13:00 03/18/23 12:30 Temperature 36.2 C L Pulse Rate 77 79 Respiratory Rate 26 H Blood Pressure 90/45 L 95/51 L Pulse Oximetry 100 Oxygen Delivery Fraction of Inspired Oxygen 60 03/18/23 12:45 03/18/23 13:00 03/18/23 13:30 Temperature Pulse Rate 78 81 78 Respiratory Rate Blood Pressure 92/49 L 90/45 L 84/45 L Pulse Oximetry Oxygen Delivery Fraction of Inspired Oxygen 03/18/23 14:04 03/18/23 14:00 03/18/23 14:00 Temperature 36.1 C L Pulse Rate 81 81 81 Respiratory Rate 24 H Blood Pressure 78/33 L 95/35 L Pulse Oximetry 93 Oxygen Delivery Fraction of Inspired Oxygen 03/18/23 14:15 03/18/23 14:20 03/18/23 15:00 Temperature 35.9 C L Pulse Rate 82 81 80 Respiratory Rate 24 H Blood Pressure 95/35 L 105/49 L Pulse Oximetry 93 90 Oxygen Delivery Mechanical Ventilation Fraction of Inspired Oxygen 60 03/18/23 15:40 03/18/23 15:34 03/18/23 16:24 Temperature Pulse Rate 70 70 Respiratory Rate Blood Pressure 114/48 L 114/48 L Pulse Oximetry Oxygen Delivery Fraction of Inspired Oxygen 70 03/18/23 16:00 03/18/23 16:00 03/18/23 16:00 Temperature 35.9 C L Pulse Rate 80 80 70 Respiratory Rate 24 H 24 H Blood Pressure 112/52 L Pulse Oximetry 90 90 Oxygen Delivery Mechanical Ventilation Fraction of Inspired Oxygen 70 03/18/23 16:00 03/18/23 16:37 03/18/23 16:54 Temperature Pulse Rate 79 Respiratory Rate Blood Pressure Pulse Oximetry 94 Oxygen Delivery Mechanical Ventilation Mechanical Ventilation Fraction of Inspired Oxygen 70 70 100
[2023-03-19 12:08] LABS: Glucose Point of Care 314 mg/dl (65-105)
[2023-03-19] MEDS: EPINEPHrine INJ 4 MG in DEXTROSE 5% IN WATER 250 ML 34.29 MG IV CONT (13:01)
--- NOTE | 2023-03-19 13:54 | PM.IMPN ---
Progress Note: A&P Assessment and Plan (1) Acute renal failure: Code(s): N17.9 - Acute kidney failure, unspecified Status: Acute (2) Diabetes mellitus: Code(s): E11.9 - Type 2 diabetes mellitus without complications Status: Acute (3) Elevated troponin: Code(s): R77.8 - Other specified abnormalities of plasma proteins Status: Acute (4) Shock: Code(s): R57.9 - Shock, unspecified Status: Acute (5) Anoxic brain injury: Code(s): G93.1 - Anoxic brain damage, not elsewhere classified Status: Acute (6) Acute anoxic encephalopathy: Code(s): G93.1 - Anoxic brain damage, not elsewhere classified Status: Acute (7) Acute respiratory failure with hypoxemia: Code(s): J96.01 - Acute respiratory failure with hypoxia Status: Acute (8) Morbid obesity: Code(s): E66.01 - Morbid (severe) obesity due to excess calories Status: Acute (9) Multifocal pneumonia: Code(s): J18.9 - Pneumonia, unspecified organism Status: Acute (10) Cardiogenic shock: Code(s): R57.0 - Cardiogenic shock Status: Acute (11) Cardiac arrest: Code(s): I46.9 - Cardiac arrest, cause unspecified Status: Acute Plan # PEA cardiac arrest # septic shock # anoxic brain injury # acute hypoxic respiratory failure -CA likely secondary to hypoxia -s/p TTM -vasopressors:? Levophed, epinephrine. on hydrocortisone 100 mg q.8 hours -sedation: monitoring off sedation to evaluate for brain activity -IMV: vent management as per straightening press operator -appreciate straightening press operator consult and management -ABx:? Cefepime, Flagyl, vancomycin -ABG pH 7.15 -elevated troponin after CPR, trop 0.485 -on Keppra 500 mg q.12 hours -now off bicarb drip, continue PO bicarb # acute kidney injury -likely secondary to vasopressors, ATN, shock -creatinine 3.0 -may need CRRT? on vasopressors, acidemia, worsening renal function, and for fluid management # congestive heart failure exacerbation -patient given another dose of Lasix.? Will monitor carefully as patient is on vasopressors. may need CRRT -cardiology consulted -echocardiogram: LVEF >70%, indeterminate LV diastolic function -BNP 85342 -with acute decompensation she may need coronary evaluation after stabilizing -started on aspirin 325 mg daily # insulin-dependent type 2 diabetes -glargine 15 units q.h.s., sliding scale insulin Diet:?NPO, tube feeds DVT prophylaxis:??Lovenox GI prophylaxis:??IV Protonix Code status:??Full code Disposition:??Continue monitor in ICU, family would like to see over the weekend hoping for brain recovery Subjective Date/time seen: 03/19/23 13:54 Interval history: Patient seen examined. Patient is being monitor off sedation, there was concern for anoxic brain injury. We will continue to diurese. She still on high FiO2. Continue broad antibiotic. Review of Systems Review of Systems: Unable to assess, patient intubated Exam Narrative: - GENERAL:? Intubated sedated - EYES: Anicteric. - HENT: ETT in place, OG tube - LUNGS: synchronous, coarse lung sounds - CARDIOVASCULAR: Regular rate and rhythm. No murmur. - ABDOMEN: Soft, non-tender and non-distended. No palpable masses. - : june - EXTREMITIES: 3+ pitting edema - NEUROLOGIC:? Patient is sedated - SKIN:? Various age wounds, stasis dermatitis Objective Data Vital Signs Vital Signs: Vital Signs - 24 hr 03/18/23 14:04 03/18/23 14:00 03/18/23 14:00 Temperature 36.1 C L Pulse Rate 81 81 81 Respiratory Rate 24 H Blood Pressure 78/33 L 95/35 L Pulse Oximetry 93 Oxygen Delivery Fraction of Inspired Oxygen 03/18/23 14:15 03/18/23 14:20 03/18/23 15:00 Temperature 35.9 C L Pulse Rate 82 81 80 Respiratory Rate 24 H Blood Pressure 95/35 L 105/49 L Pulse Oximetry 93 90 Oxygen Delivery Mechanical Ventilation Fraction of Inspired Oxygen 60 03/18/23 15:40 03/18/23 15:34 03/18/23
[2023-03-19] MEDS: DOBUTamine 250 MG/D5W 250 ML 250 MG/250 ML BAG 22.53 MG IV CONT (16:20)
[2023-03-19 17:12] LABS: Glucose Point of Care 280 mg/dl (65-105)
[2023-03-19] MEDS: levETIRAcetam 500MG/NACL 100ML 500 MG/100 ML BAG 400 MG IVPB (20:29)
[2023-03-19 20:40] LABS: Glucose Point of Care 257 mg/dl (65-105)
[2023-03-19] MEDS: DOBUTamine 250 MG/D5W 250 ML 250 MG/250 ML BAG 45.06 MG IV CONT (23:20)
[2023-03-20] VITALS (28 sets, daily range): BP systolic 108–144; BP diastolic 47–75; PULSE 82–106; RESP 15–35; TEMP 35.9–37.2; O2SAT 92–99
[2023-03-20 00:05] LABS: Glucose Point of Care 203 mg/dl (65-105)
[2023-03-20 04:21] LABS: Glucose Point of Care 170 mg/dl (65-105)
[2023-03-20 04:48] LABS: Hematocrit 26.1 % (37.0-47.0); Mean Corpuscular HGB Conc 30.7 g/dl (32-36); Mean Corpuscular Volume 81.6 fl (80-100); Mean Platelet Volume 9.5 fl (7.4-10.4); Platelet Count Result 187 k/mm3 (150-375); Red Cell Distribution Width 17.6 % (11.5-14.5); White Blood Count 27.5 K/mm3 (4.5-10.0)
[2023-03-20 05:11] LABS: Alanine Aminotransferase 40 U/L (6-35); Alkaline Phosphatase 87 U/L (38-126); Anion Gap 9 mmol/L (8-16); Aspartate Amino Transferase 69 U/L (14-36); Bilirubin,Total 0.8 mg/dL (0.2-1.3); Blood Urea Nitrogen 89 mg/dL (7-17); Calcium 7.5 mg/dL (8.4-10.2); Carbon Dioxide 25 mmol/L (22-30); Chloride 102 mmol/L (98-107); Estimated CRCL calculation 19 ml/min; Estimated Glomerular Filt Rate 13; Glucose 178 mg/dL (65-110); Magnesium 1.9 mg/dL (1.6-2.3); Phosphorus 4.7 mg/dL (2.5-4.5); Potassium 4.8 mmol/L (3.4-5.0); Sodium 136 mmol/L (137-145)
[2023-03-20 05:32] LABS: Alveolar/Arterial O2 Gradient 168.4 mmHg; Base Excess ABG -1.6 mEq/l (+/-2.0); Carboxyhemoglobin 0.3 % THb (0-2.0); Fractional Inspired Oxygen 40 %; HCO3 ABG 23.9 mEq/l (22.0-26.0); Methemoglobin ABG 0.4 %THb (0-1.5); Oxygen Content ABG 11.8 %vol (16.0-22.0); Oxygen Saturation ABG 92.3 % (95.0-100.0); Oxyhemoglobin 90.6 % THb (90.0-100.0); PCO2 ABG 43.7 mmHg (35.0-45.0); PO2 ABG 66.5 mmHg (80.0-100.0); PO2 FiO2 Ratio Arterial Blood 1.66 %; Reduced Hemoglobin 8.7 %THb (0-5.0); Total Hemoglobin 9.2 g/dL (12.0-18.0); pH ABG 7.355 (7.350-7.450)
[2023-03-20 05:35] LABS: Device VENTILATOR; Modified Allen's Test Unable to perform; Site Drawn RIGHT RADIAL
[2023-03-20 05:36] LABS: Arterial Blood Gas Vent Mode CMV; Arterial Blood Gas Ventilator rate 30 /MIN
[2023-03-20 05:38] LABS: Arterial Blood Gas PEEP 14 cmH2O; Arterial Blood Gas Tidal Volume 400 ml
[2023-03-20] MEDS: DOBUTamine 250 MG/D5W 250 ML 250 MG/250 ML BAG 45.06 MG IV CONT ×4 (05:44→22:20)
[2023-03-20] MEDS: metroNIDAZOLE 500 MG/ISO 100ML 500 MG/100 ML BAG 100 MG IVPB ×3 (05:52→23:37)
[2023-03-20] MEDS: HYDROCORTISONE SODIUM SUCCINATE 100 MG/2 ML VIAL IV PUSH (05:52)
[2023-03-20] MEDS: CENTRAL LINE FLUSH 10 ML IV PUSH ×3 (05:53→23:37)
[2023-03-20] MEDS: INSULIN GLARGINE (*BKC) 100 UNITS/ML 50 UNITS SUB-Q (07:56)
[2023-03-20] MEDS: ENOXAPARIN 40 MG/0.4 ML SYRINGE SUB-Q (07:57)
[2023-03-20] MEDS: PANTOPRAZOLE SODIUM IV 40 MG VIAL IV PUSH (07:58)
[2023-03-20] MEDS: SODIUM BICARBONATE TAB 650 MG TABLET FEED TUBE ×2 (07:58→16:53)
[2023-03-20] MEDS: ASPIRIN 325 MG TABLET PO (07:58)
[2023-03-20] MEDS: levETIRAcetam 500MG/NACL 100ML 500 MG/100 ML BAG 400 MG IVPB ×2 (07:58→20:21)
[2023-03-20] MEDS: FUROSEMIDE INJ 100 MG/10 ML VIAL 80 MG IV PUSH (07:58)
[2023-03-20] MEDS: MINERAL OIL/WHITE PETROLATUM OINTMENT 1 APPLIC EACH EYE ×2 (07:58→20:21)
[2023-03-20] MEDS: TOLNAFTATE 1% POWDER 45 GM BTL 1 APPLIC TOPICAL ×2 (07:59→20:21)
--- NOTE | 2023-03-20 08:19 | WPDINTPN ---
Progress Note: A&P Assessment and Plan (1) Acute anoxic encephalopathy: Code(s): G93.1 - Anoxic brain damage, not elsewhere classified Status: Acute Assessment and Plan: Patient was completely obtunded after ROSC and then exhibited significant jerky movements of her face and extremities history of anoxic brain injury She has a PEA arrest in the field and was started on moderate TTM protocol with goal body temperature less than 36? Patient completed 24 hours of protocol and was rewarming overnight She has been off of sedation since yesterday. Exam as above Head CT on presentation was negative and will repeat today Continue Keppra Will check EEG (2) Acute respiratory failure with hypoxemia: Code(s): J96.01 - Acute respiratory failure with hypoxia Status: Acute Assessment and Plan: Acute respiratory failure secondary to pulmonary edema cardiac arrest Patient asynchronous with the ventilator and was given a dose of rocuronium this morning Continue current vent settings. Decrease PEEP to 12 fiO2 at 40% Permissive hypercapnia has pressures are high on the ventilator Chest x-ray reviewed and shows diffuse bilateral infiltrate Lasix 80 mg IV x1 again today She is on empiric antibiotics to cover for aspiration pneumonia and healthcare associated pneumonia. Cultures have been negative. I will discontinue vancomycin (3) Cardiac arrest: Code(s): I46.9 - Cardiac arrest, cause unspecified Status: Acute Assessment and Plan: Unclear year etiology although possible etiologies would be hypoxemia syncope or arrhythmia CTA was negative for PE Continue telemetry monitoring EKG did not show any ST elevation Troponin mildly elevated but likely secondary to cardiac arrest Continue aspirin Resume statin as liver enzymes have improved Cardiology following Echocardiogram Summary ? 1. Technically difficult image quality, definity contrast used to improve exam quality. ? 2. Normal left ventricular size with hyperdynamic appearing systolic function. ? 3. Right ventricular enlargement with significant RV systolic dysfunction. ? 4. Dilated right atrium. ? 5. Small amount of tricuspid insufficiency, velocity analysis suggests severely elevated RV systolic pressure. ? 6. Mildly sclerotic aortic valve which is not stenotic. (4) Pulmonary edema: Code(s): J81.1 - Chronic pulmonary edema Status: Acute Assessment and Plan: See above (5) Acute UTI: Code(s): N39.0 - Urinary tract infection, site not specified Status: Acute Assessment and Plan: Her urine culture negative She is currently on broad-spectrum antibiotics as above (6) Candidal skin infection: Code(s): B37.2 - Candidiasis of skin and nail Status: Acute Assessment and Plan: tolnaftate powder ordered (7) Sepsis: Qualifiers: Sepsis acute organ dysfunction status: without acute organ dysfunction Sepsis type: sepsis due to unspecified organism Qualified Code(s): A41.9 - Sepsis, unspecified organism Code(s): A41.9 - Sepsis, unspecified organism Status: Acute Assessment and Plan: Patient was discharged yesterday after treatment of UTI. On presentation she did meet criteria for sepsis although elevated WBC and lactic acid could be secondary to cardiac arrest. Her procalcitonin level was intermediate she was started on broad-spectrum antibiotics including vancomycin cefepime and Flagyl which will be continued for now. Repeat blood and urine cultures have been sent and are negative till now DC vancomycin. Continue cefepime and Flagyl (8) Shock: Code(s): R57.9 - Shock, unspecified Status: Acute Assessment and Plan: Multifactorial shock secondary to ? sepsis, but mostly cardiac arrest/cardiogenic and sedation Off of Levophed and epinephrine Dobutamine started due to his significant right heart failure. Continue at 5 mics hydrocortisone discontinu
[2023-03-20 09:59] LABS: Glucose Point of Care 197 mg/dl (65-105)
--- NOTE | 2023-03-20 10:18 | PM.PNCARD ---
Progress Note: A&P Assessment and Plan (1) Anoxic brain injury: Code(s): G93.1 - Anoxic brain damage, not elsewhere classified Status: Acute (2) Cardiac arrest: Code(s): I46.9 - Cardiac arrest, cause unspecified Status: Acute Plan 78-year-old lady who experience PE a arrest outside of the hospital and has workup for primarily indicating evidence of significant RV dysfunction probably related to obesity/pulmonary hypertension. Left ventricle appears to be hyperdynamic. No significant left-sided valvular disease. Prognosis for recovery seems very poor as she has no evidence of neurological responsiveness and has been off of sedation for 24 hours at this time. Renal function is worsening. No emergency need for dialysis at this time however. Prognosis seems grim Ramu Valderrama MD [facility] Subjective Date/time seen: Date of service: 03/20/23 10:18 Interval history: Follow-up visit in this 78-year-old patient with: PE a arrest presumably occurring in the parking lot just after discharge with significant urinary sepsis. Etiology of this is not clear. She is intubated sedated in the ICU. Completed hypothermia protocol last evening. 03/20/2023: Patient remains intubated on ventilator support in the ICU. On no sedation since yesterday. No evidence of neurological responsiveness. Discussed with nursing staff and sales rep. Renal failure is advancing. Echocardiographic results noted and discussed. Principal problem appears to be RV failure likely related to obesity/pulmonary hypertension Exam Const: Other: Massively obese white female intubated on ventilator support HENMT: Mouth: Yes moist mucous membranes Eyes: Sclera: sclerae normal Neck: Neck: supple Other: Carotid pulses are intact unable to assess venous distention given her body habitus Resp: Other: Coarse rhonchi noted centrally Cardio: Rate: regular rate Rhythm: regular rhythm Other: PMI not palpable given her size no murmur no gallop GI: Auscultation: normal bowel sounds Other: Normal bowel sounds massive obesity Skin: General skin exam: normal color Neuro: Other: Intubated and sedated Extrem: Other: Adequate perfusion Objective Data Vital Signs Vital Signs: Vital Signs - 24 hr 03/19/23 11:34 03/19/23 12:00 03/19/23 12:00 Temperature Pulse Rate 88 88 Respiratory Rate Blood Pressure Pulse Oximetry 94 Oxygen Delivery Mechanical Ventilation Fraction of Inspired Oxygen 60 60 03/19/23 12:00 03/19/23 12:00 03/19/23 13:59 Temperature 37.5 C Pulse Rate 88 88 87 Respiratory Rate 27 H 27 H Blood Pressure 113/64 Pulse Oximetry 92 92 97 Oxygen Delivery Mechanical Ventilation Mechanical Ventilation Fraction of Inspired Oxygen 60 60 03/19/23 14:53 03/19/23 14:00 03/19/23 14:00 Temperature 37.6 C Pulse Rate 92 93 Respiratory Rate 30 H Blood Pressure 111/55 L Pulse Oximetry 94 94 Oxygen Delivery Mechanical Ventilation Fraction of Inspired Oxygen 50 03/19/23 16:20 03/19/23 16:00 03/19/23 16:00 Temperature Pulse Rate 82 83 Respiratory Rate Blood Pressure 109/57 L Pulse Oximetry Oxygen Delivery Fraction of Inspired Oxygen 50 03/19/23 16:00 03/19/23 16:00 03/19/23 16:32 Temperature 37.6 C Pulse Rate 83 82 Respiratory Rate 30 H 30 H Blood Pressure 109/57 L Pulse Oximetry 96 96 97 Oxygen Delivery Mechanical Ventilation Mechanical Ventilation Fraction of Inspired Oxygen 50 50 03/19/23 16:51 03/19/23 18:00 03/19/23 18:00 Temperature 37.3 C Pulse Rate 92 90 Respiratory Rate 30 H Blood Pressure 126/56 L Pulse Oximetry 94 94 Oxygen Delivery Mechanical Ventilation Fraction of Inspired Oxygen 40 03/19/23 20:02 03/19/23 20:33 03/19/23 20:00 Temperature Pulse Rate 88 99 92 Respiratory Rate Blood Pressure 125/57 L 126/42 L Pulse Oximetry Oxygen Deliv
[2023-03-20] MEDS: ATORVASTATIN 40 MG TABLET 80 MG FEED TUBE (10:28)
[2023-03-20] MEDS: CEFEPIME 2 GM/NS 50 ML 2 GM/50 ML BAG IVPB ×2 (11:28→23:38)
[2023-03-20] MEDS: INSULIN ASPART (*BKC) 100 UNITS/ML SUB-Q ×3 (11:28→16:56)
[2023-03-20 11:43] LABS: Glucose Point of Care 216 mg/dl (65-105)
--- NOTE | 2023-03-20 12:30 | PM.CNNEP ---
Assessment and Plan Assessment and plan (1) LATA (acute kidney injury): Code(s): N17.9 - Acute kidney failure, unspecified Status: Acute Assessment and Plan: ongoing worsening from previous hospitalization suspect ATN from UTI worsened by cardiac arrest contrast exposure (CTA of chest) a contributing factor as well concerning that renal function continues to deteriorate associated with decline in urine output remains at risk for MEDIA SALES REPRESENTATIVE/hemodialysis continue trial of IVF diuretics follow trend of repeat land and UOP (2) Cardiac arrest: Code(s): I46.9 - Cardiac arrest, cause unspecified Status: Acute Assessment and Plan: unclear etiology but suspicion falls onhypoxemia syncope or arrhythmia CTA of chest negative for PE elevated troponins but this is likely secondary to cardiac arrest EKG without any acute ischemic changes Cardiology following -- further intervention based on neurological recovery (3) Acute respiratory failure with hypoxemia: Code(s): J96.01 - Acute respiratory failure with hypoxia Status: Acute Assessment and Plan: secondary to pulmonary edema (as noted by imaging) and cardiac arrest remains intubated and on mechanical ventilation trial of of IV diuretics as tolerated on antibiotics for possible aspiration/healthcare associated pneumonia (but culture negative to date) weaning as tolerated (4) Sepsis: Qualifiers: Sepsis acute organ dysfunction status: without acute organ dysfunction Sepsis type: sepsis due to unspecified organism Qualified Code(s): A41.9 - Sepsis, unspecified organism Code(s): A41.9 - Sepsis, unspecified organism Status: Acute Assessment and Plan: just discharged after treatment of complex UTI elevated WBC and elevated lactic acid on re-admission concerning for sepsis however, these finding could just be secondary to cardiac arrest on antibiotic therapy blood/urine culture negative to date (5) Shock: Code(s): R57.9 - Shock, unspecified Status: Acute Assessment and Plan: related to sepsis versus cardiac versus sedation versus all of these(?) was on vasopressors but has since been weaned off on dobutamine due to right sided heart failure follow trend of hemodynamics (6) Anoxic brain injury: Code(s): G93.1 - Anoxic brain damage, not elsewhere classified Status: Acute Assessment and Plan: obtunded after cardiac arrest followed by jerking movements PEA arrest s/p TTM protocol off sedation for 24hrs but remains unresponsive repeat CT of head today and EEG to be checked on [facility] (7) Diabetes mellitus: Code(s): E11.9 - Type 2 diabetes mellitus without complications Status: Acute Assessment and Plan: follow accu-cheks glycemic control per gas stove servicer helper/hospitalists Discussed case with Dr. Ragland. Long extensive discussion (greater than 20 minutes) with the patient's at bedside regarding her ongoing renal dysfunction and the likelihood that she may require renal replacement therapy/dialysis. She has no critical electrolyte abnormalities but her volume status continues to deteriorate in association with a decline in urine output. However, I did voice my concerns that although dialysis may help improve her fluid status and provide clearance of the uremic toxins, it will not change her neurological status particularly if there is significant anoxic brain injury. He appeared to voice understanding. I will continue to follow the patient with you while she remains hospitalized make further recommendations as needed. Thank you for allowing me to participate in the care of this patient. History of Present Illness Reason for Consult Consult date: 03/20/23 Reason for consult: acute renal failure Chief Complaint Chief complaint: Cardiac arrest History of Present Illness Narrative: All of the information I have
--- NOTE | 2023-03-20 12:30 | P.CONNP_ITS ---
Assessment and Plan Assessment and plan (1) LATA (acute kidney injury): Code(s): N17.9 - Acute kidney failure, unspecified Status: Acute Assessment and Plan: * ongoing worsening from previous hospitalization * suspect ATN from UTI worsened by cardiac arrest * contrast exposure (CTA of chest) a contributing factor as well * concerning that renal function continues to deteriorate associated with decline in urine output * remains at risk for RESIDENTIAL ROOFER/hemodialysis * continue trial of IVF diuretics * follow trend of repeat land and UOP (2) Cardiac arrest: Code(s): I46.9 - Cardiac arrest, cause unspecified Status: Acute Assessment and Plan: * unclear etiology but suspicion falls onhypoxemia syncope or arrhythmia * CTA of chest negative for PE * elevated troponins but this is likely secondary to cardiac arrest * EKG without any acute ischemic changes * Cardiology following -- further intervention based on neurological recovery (3) Acute respiratory failure with hypoxemia: Code(s): J96.01 - Acute respiratory failure with hypoxia Status: Acute Assessment and Plan: * secondary to pulmonary edema (as noted by imaging) and cardiac arrest * remains intubated and on mechanical ventilation * trial of of IV diuretics as tolerated * on antibiotics for possible aspiration/healthcare associated pneumonia (but culture negative to date) * weaning as tolerated (4) Sepsis: Qualifiers: Sepsis acute organ dysfunction status: without acute organ dysfunction Sepsis type: sepsis due to unspecified organism Qualified Code(s): A41.9 - Sepsis, unspecified organism Code(s): A41.9 - Sepsis, unspecified organism Status: Acute Assessment and Plan: * just discharged after treatment of complex UTI * elevated WBC and elevated lactic acid on re-admission concerning for sepsis * however, these finding could just be secondary to cardiac arrest * on antibiotic therapy * blood/urine culture negative to date (5) Shock: Code(s): R57.9 - Shock, unspecified Status: Acute Assessment and Plan: * related to sepsis versus cardiac versus sedation versus all of these(?) * was on vasopressors but has since been weaned off * on dobutamine due to right sided heart failure * follow trend of hemodynamics (6) Anoxic brain injury: Code(s): G93.1 - Anoxic brain damage, not elsewhere classified Status: Acute Assessment and Plan: * obtunded after cardiac arrest followed by jerking movements * PEA arrest s/p TTM protocol * off sedation for 24hrs but remains unresponsive * repeat CT of head today and EEG to be checked * on [place] (7) Diabetes mellitus: Code(s): E11.9 - Type 2 diabetes mellitus without complications Status: Acute Assessment and Plan: * follow accu-cheks * glycemic control per park superintendent/hospitalists Discussed case with Dr. Ragland. Long extensive discussion (greater than 20 minutes) with the patient's at bedside regarding her ongoing renal dysfunction and the likelihood that she may require renal replacement therapy/dialysis. She has no critical electrolyte abnormalities but her volume status continues to deteriorate in association with a decline in urine output. However, I did voice my concerns that although dialysis may help improve her fluid status and provide clearance of the uremic toxins, it will not change her neurological status particularly if there is significant anoxic brain injury. He appeared to voice understanding. I will continue to fo
--- NOTE | 2023-03-20 12:38 | PM.IMPN ---
Progress Note: A&P Assessment and Plan (1) Acute renal failure: Code(s): N17.9 - Acute kidney failure, unspecified Status: Acute (2) Diabetes mellitus: Code(s): E11.9 - Type 2 diabetes mellitus without complications Status: Acute (3) Anoxic brain injury: Code(s): G93.1 - Anoxic brain damage, not elsewhere classified Status: Acute (4) Shock: Code(s): R57.9 - Shock, unspecified Status: Acute (5) Elevated troponin: Code(s): R77.8 - Other specified abnormalities of plasma proteins Status: Acute (6) Multifocal pneumonia: Code(s): J18.9 - Pneumonia, unspecified organism Status: Acute (7) Cardiogenic shock: Code(s): R57.0 - Cardiogenic shock Status: Acute Plan # PEA cardiac arrest # cardiogenic shock versus septic shock # anoxic brain injury # acute hypoxic respiratory failure -CA likely secondary to hypoxia -s/p TTM -vasopressors:?weaned off Levophed, epinephrine and hydrocortisone -started dobutamine for cardiogenic shock -sedation: monitoring off sedation to evaluate for brain activity, minimal withdrawing to pain -CT head today shows no acute finding -IMV: vent management as per clerk rating -appreciate clerk rating consult and management -ABx:? Cefepime, Flagyl, vancomycin, persistent leukocytosis -ABG pH 7.355, acidemia improved -elevated troponin after CPR, trop 0.485 -on Keppra 500 mg q.12 hours -now off bicarb drip, continue PO bicarb -plan for EEG tomorrow # acute kidney injury -likely secondary to vasopressors, ATN, shock -creatinine worsening up to 3.5 -BP may be more stable for iHD, otherwise would need to transfer if we need CRRT -nephrology consulted for possible dialysis # congestive heart failure exacerbation -patient given another dose of Lasix.?may need dialysis to help with fluid management -cardiology consulted -echocardiogram: LVEF >70%, indeterminate LV diastolic function -BNP 61569 -with acute decompensation she may need coronary evaluation after stabilizing -aspirin 325 mg daily # insulin-dependent type 2 diabetes -glargine 15 units q.h.s., sliding scale insulin Diet:?NPO, tube feeds DVT prophylaxis:??Lovenox GI prophylaxis:??IV Protonix Code status:??Full code Disposition:??Continue monitor in ICU, family would like to see over the weekend hoping for brain recovery Subjective Date/time seen: 03/20/23 12:38 Interval history: Patient seen and examined. She had a head CT this morning which showed no acute finding. She has been weaned off Levophed, started on dobutamine for cardiogenic shock. She is still off sedation and we are awaiting neuro recovery. Plan for EGD tomorrow. Will need telegraph equipment maintainer for possible dialysis. Review of Systems Review of Systems: Unable to obtain patient intubated Exam Narrative: - GENERAL:? Intubated sedated - EYES: Anicteric. reactive pupils - HENT: ETT in place, OG tube. Some blood in ETT - LUNGS: synchronous, coarse lung sounds - CARDIOVASCULAR: Regular rate and rhythm. No murmur. - ABDOMEN: Soft, non-tender and non-distended. No palpable masses. - : june - EXTREMITIES: 3+ pitting edema - NEUROLOGIC:? Patient is sedated - SKIN:? Various age wounds, stasis dermatitis Objective Data Vital Signs Vital Signs: Vital Signs - 24 hr 03/19/23 13:59 03/19/23 14:53 03/19/23 14:00 Temperature Pulse Rate 87 92 Respiratory Rate Blood Pressure Pulse Oximetry 97 94 Oxygen Delivery Mechanical Ventilation Mechanical Ventilation Fraction of Inspired Oxygen 60 50 03/19/23 14:00 03/19/23 16:20 03/19/23 16:00 Temperature 37.6 C Pulse Rate 93 82 83 Respiratory Rate 30 H Blood Pressure 111/55 L 109/57 L Pulse Oximetry 94 Oxygen Delivery Fraction of Inspired Oxygen 03/19/23 16:00 03/19/23 16:00 03/19/23 16:00 Temperature 37.6 C Pulse Rate 83 82 Respiratory Rate 30 H 30 H Blood Pressure 109/57 L Pulse Oximetry
[2023-03-20 16:58] LABS: Glucose Point of Care 204 mg/dl (65-105)
[2023-03-20 23:24] LABS: Glucose Point of Care 179 mg/dl (65-105)
[2023-03-20 23:37] LABS: Glucose Point of Care 184 mg/dl (65-105)
[2023-03-21] VITALS (30 sets, daily range): BP systolic 101–137; BP diastolic 38–59; PULSE 96–114; RESP 14–37; TEMP 35.7–37.6; O2SAT 94–100
[2023-03-21] MEDS: DOBUTamine 250 MG/D5W 250 ML 250 MG/250 ML BAG 45.06 MG IV CONT ×2 (03:41→08:59)
[2023-03-21] MEDS: INSULIN ASPART (*BKC) 100 UNITS/ML SUB-Q ×5 (04:51→20:33)
[2023-03-21 05:00] LABS: Alveolar/Arterial O2 Gradient 149.3 mmHg; Base Excess ABG 0.2 mEq/l (+/-2.0); Carboxyhemoglobin 0.2 % THb (0-2.0); Fractional Inspired Oxygen 40 %; HCO3 ABG 24.7 mEq/l (22.0-26.0); Methemoglobin ABG 0.5 %THb (0-1.5); Oxygen Content ABG 12.4 %vol (16.0-22.0); Oxyhemoglobin 95.4 % THb (90.0-100.0); PCO2 ABG 39.6 mmHg (35.0-45.0); PO2 ABG 90.4 mmHg (80.0-100.0); PO2 FiO2 Ratio Arterial Blood 2.26 %; Reduced Hemoglobin 3.9 %THb (0-5.0); Total Hemoglobin 9.1 g/dL (12.0-18.0); pH ABG 7.413 (7.350-7.450)
[2023-03-21 05:02] LABS: Arterial Blood Gas PEEP 12 cmH2O; Arterial Blood Gas Tidal Volume 400 ml; Arterial Blood Gas Vent Mode CMV; Arterial Blood Gas Ventilator rate 30 /MIN; Device VENTILATOR; Modified Allen's Test Pass; Site Drawn RIGHT RADIAL
[2023-03-21 05:20] LABS: Hematocrit 25.8 % (37.0-47.0); Hemoglobin 7.9 g/dL (12.0-15.0); Mean Corpuscular HGB Conc 30.6 g/dl (32-36); Mean Corpuscular Hemoglobin 25.1 pg (26-34); Mean Corpuscular Volume 81.9 fl (80-100); Mean Platelet Volume 9.8 fl (7.4-10.4); Platelet Count Result 204 k/mm3 (150-375); Red Blood Count 3.15 M/mm3 (4.2-5.4); Red Cell Distribution Width 17.7 % (11.5-14.5); White Blood Count 22.2 K/mm3 (4.5-10.0)
[2023-03-21 05:34] LABS: Alanine Aminotransferase 37 U/L (6-35); Alkaline Phosphatase 99 U/L (38-126); Anion Gap 7 mmol/L (8-16); Aspartate Amino Transferase 70 U/L (14-36); Bilirubin,Total 0.8 mg/dL (0.2-1.3); Blood Urea Nitrogen 99 mg/dL (7-17); Calcium 7.5 mg/dL (8.4-10.2); Carbon Dioxide 27 mmol/L (22-30); Chloride 99 mmol/L (98-107); Estimated CRCL calculation 18 ml/min; Estimated Glomerular Filt Rate 12; Glucose 190 mg/dL (65-110); Phosphorus 4.4 mg/dL (2.5-4.5); Potassium 4.3 mmol/L (3.4-5.0); Sodium 133 mmol/L (137-145)
[2023-03-21] MEDS: metroNIDAZOLE 500 MG/ISO 100ML 500 MG/100 ML BAG 100 MG IVPB ×3 (05:42→21:03)
[2023-03-21] MEDS: CENTRAL LINE FLUSH 10 ML IV PUSH ×3 (05:47→21:50)
[2023-03-21 05:51] LABS: Glucose Point of Care 221 mg/dl (65-105)
[2023-03-21 06:13] LABS: Hepatitis B Surface Antigen Negative (Negative)
[2023-03-21 06:29] LABS: Hepatitis B Surface Anti Res Negative
[2023-03-21 07:44] LABS: Glucose Point of Care 223 mg/dl (65-105)
--- NOTE | 2023-03-21 07:53 | PM.IMPN ---
Progress Note: A&P Assessment and Plan (1) LATA (acute kidney injury): Code(s): N17.9 - Acute kidney failure, unspecified Status: Acute (2) Acute renal failure: Code(s): N17.9 - Acute kidney failure, unspecified Status: Acute (3) Diabetes mellitus: Code(s): E11.9 - Type 2 diabetes mellitus without complications Status: Acute (4) Elevated troponin: Code(s): R77.8 - Other specified abnormalities of plasma proteins Status: Acute (5) Shock: Code(s): R57.9 - Shock, unspecified Status: Acute (6) Anoxic brain injury: Code(s): G93.1 - Anoxic brain damage, not elsewhere classified Status: Acute (7) Acute anoxic encephalopathy: Code(s): G93.1 - Anoxic brain damage, not elsewhere classified Status: Acute (8) Acute respiratory failure with hypoxemia: Code(s): J96.01 - Acute respiratory failure with hypoxia Status: Acute (9) Morbid obesity: Code(s): E66.01 - Morbid (severe) obesity due to excess calories Status: Acute (10) Cardiogenic shock: Code(s): R57.0 - Cardiogenic shock Status: Acute (11) Cardiac arrest: Code(s): I46.9 - Cardiac arrest, cause unspecified Status: Acute (12) Pulmonary edema: Code(s): J81.1 - Chronic pulmonary edema Status: Acute (13) Multifocal pneumonia: Code(s): J18.9 - Pneumonia, unspecified organism Status: Acute Plan # PEA cardiac arrest # cardiogenic shock versus septic shock # anoxic brain injury # acute hypoxic respiratory failure - some mild movement to sternal rub but does not open eyes. Per ON RN to , opened eyes on sternal rub. -CA likely secondary to hypoxia -s/p TTM -vasopressors:?weaned off Levophed, epinephrine and hydrocortisone -started dobutamine for cardiogenic shock -sedation: monitoring off sedation to evaluate for brain activity, minimal withdrawing to pain -CT head showed There is mild periventricular and subcortical hypodensity probably related to small vessel ischemic disease.? from 03/20/23 - This might be related to changes after HIE after cardiac arrest -IMV: vent management as per last turner- on CMV- Vt 400, PEEP 12, FiO2 0.40, Rate 12?, riding the vent in synchrony -appreciate last turner consult and management -ABx:? Cefepime, Flagyl, vancomycin stopped by last turner, WBC decreasing, 28.6-->22.2 -ABG pH 7.4 now, acidemia resolved -elevated troponin after CPR, trop 0.485 -on Keppra 500 mg q.12 hours -now off bicarb drip, continue PO bicarb - plan for EEG today - Recommend neuro consult for prognosis or MRI for more sensitive assessment of HIE - Would need to stop Keppra for at least 24-48 hrs to see if pt wakes up, to make assessment of post cardiac arrest coma # acute kidney injury -likely secondary to vasopressors, ATN, shock -creatinine worsening up to 3.5 -BP may be more stable for iHD, otherwise would need to transfer if we need CRRT -nephrology consulted for possible dialysis - minimal u/o with lasix . 250 ml ON, 300 mL on day shift with 80 mg IVP lasix. # congestive heart failure exacerbation -patient given another dose of Lasix.?may need dialysis to help with fluid management -cardiology consulted -echocardiogram: LVEF >70%, indeterminate LV diastolic function -BNP 64142 -with acute decompensation she may need coronary evaluation after stabilizing -aspirin 325 mg daily # insulin-dependent type 2 diabetes -glargine 50 units qam., sliding scale insulin Diet:?NPO, tube feeds- no BM per day shift RN DVT prophylaxis:??Lovenox GI prophylaxis:??IV Protonix Code status:??Full code Disposition:??Continue monitor in ICU, family waiting for EEG to make assessment Time Spent With Patient Time: 30 min Subjective Date/time seen: 03/21/23 07:53 Interval history: PT unarousable, minimally responsive to sternal rub. Riding the vent on CMV. Off sedation. EEG today. Review of Systems Review o
[2023-03-21] MEDS: ATORVASTATIN 40 MG TABLET 80 MG FEED TUBE (07:58)
[2023-03-21] MEDS: ENOXAPARIN 40 MG/0.4 ML SYRINGE SUB-Q (07:59)
[2023-03-21] MEDS: ASPIRIN 325 MG TABLET PO (07:59)
[2023-03-21] MEDS: PANTOPRAZOLE SODIUM IV 40 MG VIAL IV PUSH (07:59)
[2023-03-21] MEDS: levETIRAcetam 500MG/NACL 100ML 500 MG/100 ML BAG 400 MG IVPB ×2 (07:59→20:34)
[2023-03-21] MEDS: INSULIN GLARGINE (*BKC) 100 UNITS/ML 50 UNITS SUB-Q (07:59)
[2023-03-21] MEDS: TOLNAFTATE 1% POWDER 45 GM BTL 1 APPLIC TOPICAL ×2 (08:00→20:35)
[2023-03-21] MEDS: MINERAL OIL/WHITE PETROLATUM OINTMENT 1 APPLIC EACH EYE ×2 (08:00→20:35)
--- NOTE | 2023-03-21 08:40 | WPDINTPN ---
Progress Note: A&P Assessment and Plan (1) Acute anoxic encephalopathy: Code(s): G93.1 - Anoxic brain damage, not elsewhere classified Status: Acute Assessment and Plan: Patient was completely obtunded after ROSC and then exhibited significant jerky movements of her face and extremities history of anoxic brain injury She has a PEA arrest in the field and was started on moderate TTM protocol with goal body temperature less than 36? Patient completed 24 hours of protocol and was rewarming overnight She has been off of sedation for more than 48 hours. Minimal improvement and exam as above Head CT on presentation was negative and repeat done on 03/20 was unchanged Continue Keppra Check EEG and consult neurology (2) Acute respiratory failure with hypoxemia: Code(s): J96.01 - Acute respiratory failure with hypoxia Status: Acute Assessment and Plan: Acute respiratory failure secondary to pulmonary edema cardiac arrest Patient asynchronous with the ventilator and was given a dose of rocuronium this morning Continue current vent settings. Continue PEEP to 12 fiO2 at 40% Chest x-ray reviewed and shows diffuse bilateral infiltrate. Advance ET tube by 2 cm Lasix 80 mg IV x1 again today although patient has been poorly responsive to diuretics She is on empiric antibiotics to cover for aspiration pneumonia and healthcare associated pneumonia. Cultures have been negative. Continue cefepime and Flagyl. Off vancomycin (3) Cardiac arrest: Code(s): I46.9 - Cardiac arrest, cause unspecified Status: Acute Assessment and Plan: Unclear year etiology although possible etiologies would be hypoxemia syncope or arrhythmia CTA was negative for PE Continue telemetry monitoring EKG did not show any ST elevation Troponin mildly elevated but likely secondary to cardiac arrest Continue aspirin Resume statin as liver enzymes have improved Cardiology following Echocardiogram Summary ? 1. Technically difficult image quality, definity contrast used to improve exam quality. ? 2. Normal left ventricular size with hyperdynamic appearing systolic function. ? 3. Right ventricular enlargement with significant RV systolic dysfunction. ? 4. Dilated right atrium. ? 5. Small amount of tricuspid insufficiency, velocity analysis suggests severely elevated RV systolic pressure. ? 6. Mildly sclerotic aortic valve which is not stenotic. (4) Pulmonary edema: Code(s): J81.1 - Chronic pulmonary edema Status: Acute Assessment and Plan: See above (5) Acute UTI: Code(s): N39.0 - Urinary tract infection, site not specified Status: Acute Assessment and Plan: Her urine culture negative She is currently on broad-spectrum antibiotics as above (6) Candidal skin infection: Code(s): B37.2 - Candidiasis of skin and nail Status: Acute Assessment and Plan: tolnaftate powder ordered (7) Sepsis: Qualifiers: Sepsis acute organ dysfunction status: without acute organ dysfunction Sepsis type: sepsis due to unspecified organism Qualified Code(s): A41.9 - Sepsis, unspecified organism Code(s): A41.9 - Sepsis, unspecified organism Status: Acute Assessment and Plan: Patient was discharged yesterday after treatment of UTI. On presentation she did meet criteria for sepsis although elevated WBC and lactic acid could be secondary to cardiac arrest. Her procalcitonin level was intermediate she was started on broad-spectrum antibiotics including vancomycin cefepime and Flagyl which will be continued for now. Repeat blood and urine cultures have been sent and are negative till now Off vancomycin. Continue cefepime and Flagyl (8) Shock: Code(s): R57.9 - Shock, unspecified Status: Acute Assessment and Plan: Multifactorial shock secondary to ? sepsis, but mostly cardiac arrest/cardiogenic and sedation Off of Levophed and epinephrine now Dobutami
--- NOTE | 2023-03-21 09:51 | PM.PNNEP ---
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 is CLEANING LABORER/hemodialysis - if famlily wants to pursue this option follow trend of repeat land and UOP (2) Cardiac arrest: Code(s): I46.9 - Cardiac arrest, cause unspecified Status: Acute Assessment and Plan: unclear etiology but suspicion falls on hypoxemia syncope or arrhythmia CTA of chest negative for PE elevated troponins but this is likely secondary to cardiac arrest EKG without any acute ischemic changes Cardiology following -- further intervention based on neurological recovery (3) Acute respiratory failure with hypoxemia: Code(s): J96.01 - Acute respiratory failure with hypoxia Status: Acute Assessment and Plan: secondary to pulmonary edema (as noted by imaging) and cardiac arrest remains intubated and on mechanical ventilation response to IV diuretics poor on antibiotics for possible aspiration/healthcare associated pneumonia (but culture negative to date) weaning as tolerated (4) Sepsis: Qualifiers: Sepsis acute organ dysfunction status: without acute organ dysfunction Sepsis type: sepsis due to unspecified organism Qualified Code(s): A41.9 - Sepsis, unspecified organism Code(s): A41.9 - Sepsis, unspecified organism Status: Acute Assessment and Plan: just discharged after treatment of complex UTI elevated WBC and elevated lactic acid on re-admission concerning for sepsis however, these finding could just be secondary to cardiac arrest on antibiotic therapy blood/urine culture negative to date (5) Shock: Code(s): R57.9 - Shock, unspecified Status: Acute Assessment and Plan: related to sepsis versus cardiac versus sedation versus all of these(?) was on vasopressors but has since been weaned off on dobutamine due to right sided heart failure follow trend of hemodynamics (6) Anoxic brain injury: Code(s): G93.1 - Anoxic brain damage, not elsewhere classified Status: Acute Assessment and Plan: obtunded after cardiac arrest followed by jerking movements PEA arrest s/p TTM protocol off sedation for 24hrs but remains unresponsive repeat CT of head yesterday noted EEG today on Keppra (7) Diabetes mellitus: Code(s): E11.9 - Type 2 diabetes mellitus without complications Status: Acute Assessment and Plan: follow accu-cheks glycemic control per [place]/hospitalists Discussed case with Dr. Ragland -- he is planning a family meeting with patient's family this AM to discuss goals of care given multiple medical issues/problems as well as address the issues of dialysis. Will continue to follow. Subjective Date/time seen: 03/21/23 09:51 Interval history: Follow-up for acute kidney injury/acute renal failure. Remains intubated and on mechanical ventilation; EEG being done at the time of my visit; renal function continues to worsen with associated decline in urine output but no significant response to IV diuretics in the last 24 hours; remains on dobutamine gtt; minimally responsive despite being off sedation x 48 hours Exam Narrative: General: large female intubated and on mechanical ventilation Heart: tachycardic, normal S1 and S2; no rub Lungs: coarse breath sounds Abdomen: obsese but soft, nontender, nondistended, hypoactive bowel sounds Extremities: no cyanosis or clubbing; 2+ edema with weeping Skin: chronic venous stasis changes in LEs Objective Data Vital Signs Vital Signs: Vital Signs
--- NOTE | 2023-03-21 09:51 | P.PNNP_ITS ---
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/hemodialysis - if famlily wants to pursue this option * follow trend of repeat land and UOP (2) Cardiac arrest: Code(s): I46.9 - Cardiac arrest, cause unspecified Status: Acute Assessment and Plan: * unclear etiology but suspicion falls on hypoxemia syncope or arrhythmia * CTA of chest negative for PE * elevated troponins but this is likely secondary to cardiac arrest * EKG without any acute ischemic changes * Cardiology following -- further intervention based on neurological recovery (3) Acute respiratory failure with hypoxemia: Code(s): J96.01 - Acute respiratory failure with hypoxia Status: Acute Assessment and Plan: * secondary to pulmonary edema (as noted by imaging) and cardiac arrest * remains intubated and on mechanical ventilation * response to IV diuretics poor * on antibiotics for possible aspiration/healthcare associated pneumonia (but culture negative to date) * weaning as tolerated (4) Sepsis: Qualifiers: Sepsis acute organ dysfunction status: without acute organ dysfunction Sepsis type: sepsis due to unspecified organism Qualified Code(s): A41.9 - Sepsis, unspecified organism Code(s): A41.9 - Sepsis, unspecified organism Status: Acute Assessment and Plan: * just discharged after treatment of complex UTI * elevated WBC and elevated lactic acid on re-admission concerning for sepsis * however, these finding could just be secondary to cardiac arrest * on antibiotic therapy * blood/urine culture negative to date (5) Shock: Code(s): R57.9 - Shock, unspecified Status: Acute Assessment and Plan: * related to sepsis versus cardiac versus sedation versus all of these(?) * was on vasopressors but has since been weaned off * on dobutamine due to right sided heart failure * follow trend of hemodynamics (6) Anoxic brain injury: Code(s): G93.1 - Anoxic brain damage, not elsewhere classified Status: Acute Assessment and Plan: * obtunded after cardiac arrest followed by jerking movements * PEA arrest s/p TTM protocol * off sedation for 24hrs but remains unresponsive * repeat CT of head yesterday noted * EEG today * on Keppra (7) Diabetes mellitus: Code(s): E11.9 - Type 2 diabetes mellitus without complications Status: Acute Assessment and Plan: * follow accu-cheks * glycemic control per mobile patrol officer/hospitalists Discussed case with Dr. Ragland -- he is planning a family meeting with patient's family this AM to discuss goals of care given multiple medical issues/problems as well as address the issues of dialysis. Will continue to follow. Subjective Date/time seen: 03/21/23 09:51 Interval history: Follow-up for acute kidney injury/acute renal failure. Remains intubated and on mechanical ventilation; EEG being done at the time of my visit; renal function continues to worsen with associated decline in urine output but no significant response to IV diuretics in the last 24 hours; remains on dobutamine gtt; minimally responsive despite being off sed
--- NOTE | 2023-03-21 10:14 | PCFNICU ---
ICU Rounding Note: Pt current nutrition is Glucerna 1.2 @ 40 ml/h: fairly tolerating with residuals 45-225 ml. Nutrition recommendation: Comfort care to be initiated today. No recommendations. Switch formula to Vital 1.2 @ trickle feeding 20 ml/h if not proceeding to comfort care Last recorded weight is 150.2 kg. Bowel Motility: No BMs recorded Labs Reviewed: Hgb 7.9, Hct 25.8, Alb 3.0, Na 133, GFR 12, BUN 99, Cre 3.7, Gu 223 Meds Noted: Dobutamine, lovenox Skin: WNL Additional Notes: Per MD during rounds, pt to be transitioned to comfort care today after family visits. No recommendations unless for some reason comfort care is canceled. Following Following daily in ICU rounds. Will monitor weight, labs, skin, feedings every 3 days..
--- NOTE | 2023-03-21 10:15 | PM.EVENT ---
Event Note Event Note Event Note: Family Meeting I met with patient's and daughter and had a long discussion with them. I updated them with patient's current status including encephalopathy, right heart failure, acute renal failure, need for hemodialysis, respiratory failure. I explained that the patient has been now off of sedatives for more than 48 hours. I discussed option of starting hemodialysis today. Explain the patient may need prolonged mechanical ventilation including tracheostomy and PEG tube placement and may need skilled nursing placement at the end of hospitalization if she survives. I answered all their questions. They told me that patient would not want to live like this considering all the medical problems she has and the poor overall prognosis she has. They feel that if patient cannot return to her functional status she would not want to live on life support. They have decided to make patient DNR at this time and will get family members come in to see her. Once they are ready they will proceed with palliative extubation and comfort care. Patient's 's father had a similar large CVA and went with palliative extubation and comfort care so was well aware of the procedure. I have explained them that I will use opioids, anxiolytics and other agents on as needed basis to promote comfort and discontinue all medical therapy, lab testing and invasive monitoring. Patient will eventually . They verbalized understanding and agreed to proceed once all family members have visited the patient. Total time spent 30 minutes
[2023-03-21] MEDS: CEFEPIME 1 GM/NS 50 ML 1 GM/50 ML BAG IVPB (12:20)
[2023-03-21 12:21] LABS: Glucose Point of Care 242 mg/dl (65-105)
[2023-03-21] MEDS: NOREPINEPHRINE 8 MG/D5W 250 ML 8 MG/250 ML BAG 9.38 MG IV CONT (13:18)
--- NOTE | 2023-03-21 15:19 | IVDEFINITY ---
Prior to administration of IV Definity the patient was educated on the risks and benefits of the imaging enhancing agent including potential adverse side effects. The patient verbalized understanding. Allergies were verified. No exclusion criteria were identified and at least one of the following inclusion criteria were met: 1) physician request, 2) patient technically difficult to image (per the [place] [employer]ocardi[employer] guidelines of two or more segments not discernable within the apical view), or 3) questionable left ventricular function. ?
[2023-03-21] MEDS: DOBUTamine 250 MG/D5W 250 ML 250 MG/250 ML BAG 22.53 MG IV CONT (15:49)
[2023-03-21 16:30] LABS: Glucose Point of Care 229 mg/dl (65-105)
[2023-03-21 20:34] LABS: Glucose Point of Care 225 mg/dl (65-105)
[2023-03-22] VITALS (15 sets, daily range): BP systolic 120–137; BP diastolic 43–51; PULSE 99–110; RESP 18–38; TEMP 36.8–37.9; O2SAT 96–100
[2023-03-22] MEDS: INSULIN ASPART (*BKC) 100 UNITS/ML SUB-Q ×3 (00:41→08:08)
[2023-03-22] MEDS: CEFEPIME 1 GM/NS 50 ML 1 GM/50 ML BAG IVPB (00:42)
[2023-03-22 00:45] LABS: Glucose Point of Care 223 mg/dl (65-105)
[2023-03-22 03:14] LABS: Glucose Point of Care 212 mg/dl (65-105)
[2023-03-22 03:16] LABS: Hematocrit 25.5 % (37.0-47.0); Hemoglobin 7.9 g/dL (12.0-15.0); Mean Corpuscular Hemoglobin 24.8 pg (26-34); Mean Corpuscular Volume 80.2 fl (80-100); Mean Platelet Volume 9.6 fl (7.4-10.4); Platelet Count Result 195 k/mm3 (150-375); Red Blood Count 3.18 M/mm3 (4.2-5.4); Red Cell Distribution Width 17.7 % (11.5-14.5); White Blood Count 19.2 K/mm3 (4.5-10.0)
[2023-03-22 03:33] LABS: Alanine Aminotransferase 32 U/L (6-35); Albumin Level 2.9 g/dL (3.5-5.1); Alkaline Phosphatase 93 U/L (38-126); Anion Gap 6 mmol/L (8-16); Aspartate Amino Transferase 59 U/L (14-36); Bilirubin,Total 0.8 mg/dL (0.2-1.3); Blood Urea Nitrogen 101 mg/dL (7-17); Calcium 7.7 mg/dL (8.4-10.2); Carbon Dioxide 27 mmol/L (22-30); Chloride 101 mmol/L (98-107); Estimated CRCL calculation 19 ml/min; Estimated Glomerular Filt Rate 13; Glucose 209 mg/dL (65-110); Phosphorus 3.9 mg/dL (2.5-4.5); Potassium 4.6 mmol/L (3.4-5.0); Sodium 134 mmol/L (137-145)
[2023-03-22] MEDS: DOBUTamine 250 MG/D5W 250 ML 250 MG/250 ML BAG 22.53 MG IV CONT (03:45)
[2023-03-22 04:43] LABS: Alveolar/Arterial O2 Gradient 166.5 mmHg; Base Excess ABG -0.3 mEq/l (+/-2.0); Carboxyhemoglobin 0.3 % THb (0-2.0); Device VENTILATOR; Fractional Inspired Oxygen 40 %; Methemoglobin ABG 0.4 %THb (0-1.5); Modified Allen's Test Pass; Oxygen Content ABG 12.4 %vol (16.0-22.0); Oxygen Saturation ABG 96.7 % (95.0-100.0); Oxyhemoglobin 94.7 % THb (90.0-100.0); PCO2 ABG 32.5 mmHg (35.0-45.0); PO2 ABG 81.3 mmHg (80.0-100.0); PO2 FiO2 Ratio Arterial Blood 2.03 %; Reduced Hemoglobin 4.6 %THb (0-5.0); Site Drawn RIGHT RADIAL; Total Hemoglobin 9.2 g/dL (12.0-18.0); pH ABG 7.468 (7.350-7.450)
[2023-03-22 04:44] LABS: Arterial Blood Gas PEEP 12 cmH2O; Arterial Blood Gas Tidal Volume 400 ml; Arterial Blood Gas Vent Mode CMV; Arterial Blood Gas Ventilator rate 30 /MIN
[2023-03-22] MEDS: ACETAMINOPHEN 325 MG TABLET 650 MG FEED TUBE (05:19)
[2023-03-22] MEDS: CENTRAL LINE FLUSH 10 ML IV PUSH (05:20)
[2023-03-22] MEDS: ENOXAPARIN 40 MG/0.4 ML SYRINGE SUB-Q (08:04)
[2023-03-22] MEDS: INSULIN GLARGINE (*BKC) 100 UNITS/ML 50 UNITS SUB-Q (08:05)
[2023-03-22] MEDS: ASPIRIN 325 MG TABLET PO (08:05)
[2023-03-22] MEDS: ATORVASTATIN 40 MG TABLET 80 MG FEED TUBE (08:05)
[2023-03-22] MEDS: MINERAL OIL/WHITE PETROLATUM OINTMENT 1 APPLIC EACH EYE (08:05)
[2023-03-22] MEDS: levETIRAcetam 500MG/NACL 100ML 500 MG/100 ML BAG 400 MG IVPB (08:05)
[2023-03-22] MEDS: PANTOPRAZOLE SODIUM IV 40 MG VIAL IV PUSH (08:05)
[2023-03-22] MEDS: TOLNAFTATE 1% POWDER 45 GM BTL 1 APPLIC TOPICAL (08:05)
[2023-03-22 09:20] LABS: Glucose Point of Care 212 mg/dl (65-105)
--- NOTE | 2023-03-22 09:28 | PM.PNNEP ---
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/hemodialysis - however, based on family meeting yesterday, family not likely to purse follow trend of repeat land and UOP (2) Cardiac arrest: Code(s): I46.9 - Cardiac arrest, cause unspecified Status: Acute Assessment and Plan: unclear etiology but suspicion falls on hypoxemia syncope or arrhythmia CTA of chest negative for PE elevated troponins but this is likely secondary to cardiac arrest EKG without any acute ischemic changes Cardiology following -- further intervention based on neurological recovery (3) Acute respiratory failure with hypoxemia: Code(s): J96.01 - Acute respiratory failure with hypoxia Status: Acute Assessment and Plan: secondary to pulmonary edema (as noted by imaging) and cardiac arrest remains intubated and on mechanical ventilation response to IV diuretics poor on antibiotics for possible aspiration/healthcare associated pneumonia (but culture negative to date) weaning as tolerated (4) Sepsis: Qualifiers: Sepsis acute organ dysfunction status: without acute organ dysfunction Sepsis type: sepsis due to unspecified organism Qualified Code(s): A41.9 - Sepsis, unspecified organism Code(s): A41.9 - Sepsis, unspecified organism Status: Acute Assessment and Plan: just discharged after treatment of complex UTI elevated WBC and elevated lactic acid on re-admission concerning for sepsis however, these finding could just be secondary to cardiac arrest on antibiotic therapy blood/urine culture negative to date (5) Shock: Code(s): R57.9 - Shock, unspecified Status: Acute Assessment and Plan: related to sepsis versus cardiac versus sedation versus all of these(?) was on vasopressors but has since been weaned off on dobutamine due to right sided heart failure follow trend of hemodynamics (6) Anoxic brain injury: Code(s): G93.1 - Anoxic brain damage, not elsewhere classified Status: Acute Assessment and Plan: obtunded after cardiac arrest followed by jerking movements PEA arrest s/p TTM protocol off sedation for 24hrs but remains unresponsive repeat CT of head yesterday noted EEG results pending on Keppra (7) Diabetes mellitus: Code(s): E11.9 - Type 2 diabetes mellitus without complications Status: Acute Assessment and Plan: follow accu-cheks glycemic control per mail teller/hospitalists Noted tentative plan for extubation and comfort care measures -- will follow from a distance. Subjective Date/time seen: 03/22/23 09:28 Interval history: Follow-up for acute kidney injury/acute renal failure. Remains intubated and on mechanical ventilation; no significant change in renal function but urine output remains low; remains unresponsive after being off sedation for almost 72 hours; no apparent distress noted; results of family meeting yesterday noted. Exam Narrative: General: large female intubated and on mechanical ventilation Heart: tachycardic, normal S1 and S2; no rub Lungs: coarse breath sounds Abdomen: obese but soft, nontender, nondistended, hypoactive bowel sounds Extremities: no cyanosis or clubbing; 2+ edema with weeping Skin: chronic venous stasis changes in LEs Objective Data Vital Signs Vital Signs: Vital Signs Temp Pulse Resp BP Pulse Ox O2 Del Method FiO2 03/22/23 08:00 102 H 03/22/23 08:00 99 Mechanical Ventilation 40 03/22/23 08:22 10
--- NOTE | 2023-03-22 09:28 | P.PNNP_ITS ---
Progress Note: A&P Assessment and Plan (1) LATA (acute kidney injury): Code(s): N17.9 - Acute kidney failure, unspecified Status: Acute Assessment and Plan: * ongoing worsening from previous hospitalization * suspect ATN from UTI worsened by cardiac arrest * contrast exposure (CTA of chest) a contributing factor as well * concerning that renal function continues to deteriorate associated with decline in urine output * next step is PRODUCTION TRAINER/hemodialysis - however, based on family meeting yesterday, family not likely to purse * follow trend of repeat land and UOP (2) Cardiac arrest: Code(s): I46.9 - Cardiac arrest, cause unspecified Status: Acute Assessment and Plan: * unclear etiology but suspicion falls on hypoxemia syncope or arrhythmia * CTA of chest negative for PE * elevated troponins but this is likely secondary to cardiac arrest * EKG without any acute ischemic changes * Cardiology following -- further intervention based on neurological recovery (3) Acute respiratory failure with hypoxemia: Code(s): J96.01 - Acute respiratory failure with hypoxia Status: Acute Assessment and Plan: * secondary to pulmonary edema (as noted by imaging) and cardiac arrest * remains intubated and on mechanical ventilation * response to IV diuretics poor * on antibiotics for possible aspiration/healthcare associated pneumonia (but culture negative to date) * weaning as tolerated (4) Sepsis: Qualifiers: Sepsis acute organ dysfunction status: without acute organ dysfunction Sepsis type: sepsis due to unspecified organism Qualified Code(s): A41.9 - Sepsis, unspecified organism Code(s): A41.9 - Sepsis, unspecified organism Status: Acute Assessment and Plan: * just discharged after treatment of complex UTI * elevated WBC and elevated lactic acid on re-admission concerning for sepsis * however, these finding could just be secondary to cardiac arrest * on antibiotic therapy * blood/urine culture negative to date (5) Shock: Code(s): R57.9 - Shock, unspecified Status: Acute Assessment and Plan: * related to sepsis versus cardiac versus sedation versus all of these(?) * was on vasopressors but has since been weaned off * on dobutamine due to right sided heart failure * follow trend of hemodynamics (6) Anoxic brain injury: Code(s): G93.1 - Anoxic brain damage, not elsewhere classified Status: Acute Assessment and Plan: * obtunded after cardiac arrest followed by jerking movements * PEA arrest s/p TTM protocol * off sedation for 24hrs but remains unresponsive * repeat CT of head yesterday noted * EEG results pending * on [place] (7) Diabetes mellitus: Code(s): E11.9 - Type 2 diabetes mellitus without complications Status: Acute Assessment and Plan: * follow accu-cheks * glycemic control per laboratory specialist/hospitalists Noted tentative plan for extubation and comfort care measures -- will follow from a distance. Subjective Date/time seen: 03/22/23 09:28 Interval history: Follow-up for acute kidney injury/acute renal failure. Remains intubated and on mechanical ventilation; no significant change in renal function but urine output remains low; remains unresponsive after being off sedation for almost 72 hours; no apparent distress noted; results of family meeting yesterday noted. Exam Narrative: General: large female intubated and on mechanical ventilation Heart:
--- NOTE | 2023-03-22 09:40 | WPDINTPN ---
Progress Note: A&P Assessment and Plan (1) Acute anoxic encephalopathy: Code(s): G93.1 - Anoxic brain damage, not elsewhere classified Status: Acute Assessment and Plan: Patient was completely obtunded after ROSC and then exhibited significant jerky movements of her face and extremities history of anoxic brain injury She has a PEA arrest in the field and was started on moderate TTM protocol with goal body temperature less than 36? Patient completed 24 hours of protocol and was rewarming overnight She has been off of sedation for more than 48 hours. Minimal improvement and exam as above Head CT on presentation was negative and repeat done on 03/20 was unchanged Continue [facility] 03/21 EEG was performed but no neurologist does was available to read it. I a long discussion with patient's and daughter regarding goals of care and code status. See note from yesterday. They chose to proceed with palliative extubation and comfort care but wanted to wait for EEG results before proceeding. I did discuss possible outcomes of EEG with them. I spoke to Dr. Lamb this morning and he is going to read EEG and I will discuss was also the family and proceed from there. They still in intend to proceed with palliative extubation and comfort care but feels that he would not feel comfortable unless he sees the results of EEG.. (2) Acute respiratory failure with hypoxemia: Code(s): J96.01 - Acute respiratory failure with hypoxia Status: Acute Assessment and Plan: Acute respiratory failure secondary to pulmonary edema cardiac arrest Patient asynchronous with the ventilator and was given a dose of rocuronium this morning Continue current vent settings. Continue PEEP to 12 fiO2 at 40% Chest x-ray reviewed and shows diffuse bilateral infiltrate. Advance ET tube by 2 cm Lasix 80 mg IV x1 again today although patient has been poorly responsive to diuretics She is on empiric antibiotics to cover for aspiration pneumonia and healthcare associated pneumonia. Cultures have been negative. Continue cefepime and Flagyl. Off vancomycin (3) Cardiac arrest: Code(s): I46.9 - Cardiac arrest, cause unspecified Status: Acute Assessment and Plan: Unclear year etiology although possible etiologies would be hypoxemia syncope or arrhythmia CTA was negative for PE Continue telemetry monitoring EKG did not show any ST elevation Troponin mildly elevated but likely secondary to cardiac arrest Continue aspirin Resume statin as liver enzymes have improved Cardiology following Echocardiogram Summary ? 1. Technically difficult image quality, definity contrast used to improve exam quality. ? 2. Normal left ventricular size with hyperdynamic appearing systolic function. ? 3. Right ventricular enlargement with significant RV systolic dysfunction. ? 4. Dilated right atrium. ? 5. Small amount of tricuspid insufficiency, velocity analysis suggests severely elevated RV systolic pressure. ? 6. Mildly sclerotic aortic valve which is not stenotic. (4) Pulmonary edema: Code(s): J81.1 - Chronic pulmonary edema Status: Acute Assessment and Plan: See above (5) Acute UTI: Code(s): N39.0 - Urinary tract infection, site not specified Status: Acute Assessment and Plan: Her urine culture negative She is currently on broad-spectrum antibiotics as above (6) Candidal skin infection: Code(s): B37.2 - Candidiasis of skin and nail Status: Acute Assessment and Plan: tolnaftate powder ordered (7) Sepsis: Qualifiers: Sepsis acute organ dysfunction status: without acute organ dysfunction Sepsis type: sepsis due to unspecified organism Qualified Code(s): A41.9 - Sepsis, unspecified organism Code(s): A41.9 - Sepsis, unspecified organism Status: Acute Assessment and Plan: Patient was discharged yesterday after treatment of UTI. On presentation she did m
--- NOTE | 2023-03-22 10:46 | PCNFU ---
Nutrition Follow-Up Complete: Inadequate Oral Intake as related to mechanical ventilation as evidenced by NPO. Goal: Meet estimated nutritional needs. Pt current nutrition is Glucerna 1.2 at 40 ml/hr. Last recorded weight is 150.4 kg, up from 147.3 kg on admit. Bowel Motility:No BM reported. Labs Reviewed:Glu 209, Cr 3.5,GFR 13, BUN 101, Cr 3.5,Alb 2.9,Na 134 Meds Noted:Keppra, Lantus, Novolog, Protonix Skin: WNL Additional Notes: Patient DNR, comfort care at this time. EEG performed, family awaiting results for further plan of care. Tube feedings of Glucerna 1.2 at 40 ml/hr providing 1056 kcals/53 gms protein/708 ml water. Flush 30 ml q 4 hours. Will monitor in ICU rounds and reassess weight, labs, skin, feedings every Tuesday and Tuesday.
--- NOTE | 2023-03-22 11:11 | WPDNEUROLOGY ---
Neurology EEG Report General Information Date of Study: 03/21/23 TEST eeg
--- NOTE | 2023-03-22 11:16 | WPDNEUROLOGY ---
Neurology EEG Report General Information Date of Study: 03/21/23 TEST eeg DIAGNOSIS status post cardiopulmonary arrest CONDITION OF RECORDING unresponsive EEG NUMBER [id number] CLINICAL HISTORY patient went into respiratory arrest 4 days ago when she was being discharged from this hospital ,was readmitted and at the time of this EEG, is on vent. she went through hypothermia protocol. Has been back to normal with normal temperature and no sedation for almost 48hours and remains unresponsive. EEG DESCRIPTION fold record consists of very minimal activity over the hemisphere which is asymmetric and is in the range of 15 to 21 Bey dominant on 1 hemisphere. There is no evidence of any sleep pattern and there is no evidence of any electrical seizures. IMPRESSION abnormal record due to the absence of normal activity and the presence of minimal hemispheric low-voltage beta activity .clinical correlation recommended findings are suggestive of significant brain insult likely hypoxic on the basis of the history.
--- NOTE | 2023-03-22 12:10 | P.PNCROSS_ITS ---
Event Note Event Note Event Note: I again met with patient's and daughter in the conference room and disc ussed results of EEG. We again discussed goals of care code status and patient's current neurological status. They have decided to proceed with palliative extubation and comfort care as mentioned in my previous notes. At this time the family members are taking turns to see patient.
[2023-03-22] MEDS: LORazepam INJ (*CRX) 2 MG/ML VIAL IV PUSH (12:33)
[2023-03-22] MEDS: MORPHINE SULFATE INJ (*CRX) 10 MG/ML AMP 5 MG IV PUSH (12:33)
[2023-03-23 12:34] LABS: Hepatitis B Core Ab Total Nonreactive (Nonreactive)
--- NOTE | 2023-05-05 13:25 | PM.DDS ---
Discharge Summary Date and Time Date of : 03/22/23 Time of : 12:50 Provider Pronounced By: Julia Smiley RN and France Willams RN Probable Cause of Probable Cause of : Anoxic encephalopathy, anoxic brain damage, acute respiratory failure with hypoxia, cardiac arrest, pulmonary edema, UTI, sepsis, shock, acute renal failure, diabetes mellitus Summary Hospital Course: 78 year old female with past medical history of morbid obesity, chronic respiratory failure requiring home oxygen, obstructive sleep apnea but not on CPAP, diabetes, myocardial infarction was admitted to [facility] on 03/11 with altered mental status and was found to be having UTI.? She was admitted to the floor treated with antibiotics and was discharged on 03/17.? At the time of discharge it was recommended the patient go to inpatient rehab she was found to be considerably weak and decondition.? Patient at that time refused and chose to go home due to financial reasons.? Patient receives most of her care at [facility] and was admitted to [facility] because she was visiting this area.? At the time of discharge patient was taken to her car and once she sat in her car she became unresponsive.? Patient's drove the car towards the ER and brought her to the ER and she was found to be in PE arrest.? Patient received CPR bag ventilation epinephrine before ROSC was obtained.? Referred to the ER note for additional details about the code.? Patient was obtunded and exhibited jerking/seizure-like activity.? CT scan was negative for any evidence of pulmonary embolism but showed diffuse pulmonary edema.? She had mildly elevated troponin but no ST segment elevation on EKG.? Workup also showed elevated WBC, UA appeared abnormal but significantly improved as compared to the the UA from the presentation on last admission.? Urine cultures were negative on last admission.? A central venous catheter was placed patient was started on epinephrine infusion and admitted to ICU.? Arrival to ICU patient was started on TTM protocol.? Following that sedation was discontinued. Patient was maintained on mechanical ventilation with high PEEP and FiO2. She was treated with empiric antibiotics. Cardiology was consulted. Patient was on multiple vasopressors. Patient was also on Keppra. EEG was performed which showed abnormal record due to absence of normal activity and presence of minimal hemispheric low-voltage beta activity suggestive of hypoxic brain injury. I had multiple long discussion and meeting with patient's and daughter the course of patient's hospital stay. Please refer to my daily progress notes on details. They initially made patient DNR and then later considering her prognosis and multiple medical problems decided initially not to proceed with dialysis and later to proceed with palliative extubation and comfort care. On 03/22 meeting with patient's and daughter again and going over results of workup and patient's current condition they finally made decision to proceed with palliative extubation and comfort care. Patient's extended family visited him and patient was extubated. Patient was pronounced on 03/22 at 12:50 p.m. Additional Data Confirmation of as documented by pronouncing clinician: Pupillary Reflex, Palpable Pulses, Response to Stimuli, Heart Tones and Breath Sounds Name of Provider Notified: Dr. Ragland, Dr. Awan Time Provider Notified: 12:50 Provider Requests Autopsy: No Family Requests Autopsy: No Double Surface Operator Notified: Yes Date [facility] Notified of : 03/22/23 Time [facility] Notified of : 13:11
== END 2023-03-22 12:50 | disposition expired | DRG 870 ==
LOC: ANHED 14:50 → ANHICU 17:56
PROVIDERS: Internal Medicine; Internal Medicine Nephrology; Student in an Organized Health Care Education/Training Program; Admitting Provider Hospitalist; Emergency Provider Student in an Organized Health Care Education/Training Program; Visit Provider Internal Medicine
DX: A41.9 Sepsis, unspecified organism (principal); J96.21 Acute and chronic respiratory failure with hypoxia; R65.21 Severe sepsis with septic shock; J18.9 Pneumonia, unspecified organism; J69.0 Pneumonitis due to inhalation of food and vomit; Z68.43 Body mass index [BMI] 50.0-59.9, adult; G93.1 Anoxic brain damage, not elsewhere classified; N17.9 Acute kidney failure, unspecified; E66.2 Morbid (severe) obesity with alveolar hypoventilation; N39.0 Urinary tract infection, site not specified; I46.9 Cardiac arrest, cause unspecified; E87.5 Hyperkalemia; R57.0 Cardiogenic shock; I25.2 Old myocardial infarction; I50.9 Heart failure, unspecified; B37.2 Candidiasis of skin and nail; E11.9 Type 2 diabetes mellitus without complications; Z66 Do not resuscitate; Z99.81 Dependence on supplemental oxygen
CPT/HCPCS: 12013; 36415; 36556; 36600; 70450; 71045; 71275; 76775; 80048; 80053; 81001; 82375; 82550; 82805; 82948; 83050; 83605; 83735; 83880; 84100; 84145; 84484; 85025; 85027; 85610; 85730; 86140; 86704; 86706; 87040; 87070; 87086; 87205; 87340; 87635; 92950; 93005; 94003; 95816; 99291; A9270; C1751; C8929; C9113; J0171; J0461; J0692; J1250; J1650; J1720; J1815; J1836; J1940; J1953; J2060; J2250; J2270; J3010; J3370; J7030; J7040; J7060; P9047; Q9957; Q9967